=== PATIENT | female | born 1945 | race Caucasian/White ===

== ENCOUNTER 2017-06-30 19:51 | Emergency (ER) | payer MEDICARE, OTHER ==
[2017-06-30 20:53] LABS: ABSOLUTE BASOPHILS # (AUTO) 0.1 10^3/uL (0.0-0.2); ABSOLUTE LYMPHOCYTES (AUTO) 0.6 10^3/uL (0.5-4.7); ABSOLUTE MONOCYTES (AUTO) 0.7 10^3/uL (0.1-1.4); BASOPHILS % (AUTO) 0.7 % (0-2); EOSINOPHILS % (AUTO) 0.2 % (0-6); HEMATOCRIT 38.7 % (36.0-47.0); HEMOGLOBIN 13.2 g/dL (12.0-15.5); HGB HCT DIFFERENCE 0.9; LYMPHOCYTES % (AUTO) 6.4 % (13-45); MEAN CORPUSCULAR HEMOGLOBIN 33.4 pg (27.0-33.4); MEAN CORPUSCULAR HGB CONC 34.2 g/dL (32.0-36.0); MEAN CORPUSCULAR VOLUME 98 fl (80-97); MONOCYTES % (AUTO) 7.4 % (3-13); RED BLOOD COUNT 3.96 10^6/uL (3.72-5.28); RED CELL DISTRIBUTION WIDTH 13.5 % (11.5-14.0); SEGMENTED NEUTROPHILS % (AUTO) 85.3 % (42-78); WHITE BLOOD COUNT 9.3 10^3/uL (4.0-10.5)
--- NOTE | 2017-06-30 20:53 | ER Document Report ---
ED General - General Chief Complaint: Altered Mental Status Stated Complaint: ALTERED MENTAL STATUS Time Seen by Provider: 06/30/17 20:30 TRAVEL OUTSIDE OF THE [place] IN LAST 30 DAYS: No - HPI Notes: 71-year-old female history of cardiac stents, "mild" TIA, hypertension presents with vomiting and diarrhea that started yesterday. Apparently the vomiting and diarrhea has been pretty persistent. She had a history of sepsis and reports to me that he did not want her to get this way again like she was back than a few years ago. She notably has had some increased confusion. He does report she had a fall when walking the dog striking her head approximately a week ago. He notes he has been slightly more off in a little more unsteady on her feet than normal. They have noted no focal weakness or facial asymmetry. She denies urinary symptoms. EMS reported the patient has had some cough. Denies any new medications. He was unsure the day when he asked and seemed confused though right now seems slightly better but not back to normal. - Related Data Allergies/Adverse Reactions: divalproex sodium [From Depakote] Allergy (Verified 09/19/15 22:31) Penicillins Allergy (Verified 09/19/15 22:31) propoxyphene [Propoxyphene] Allergy (Verified 09/19/15 22:31) Past Medical History - Social History Smoking Status: Former Smoker - Very distant Chew tobacco use (# tins/day): No Frequency of alcohol use: None Drug Abuse: None Family History: Reviewed & Not Pertinent Patient has suicidal ideation: No Patient has homicidal ideation: No - Past Medical History Cardiac Medical History: Reports: Hx Hypertension Renal/ Medical History: Denies: Hx Peritoneal Dialysis Past Surgical History: Reports: Hx Cardiac Catheterization - Stents x 2, Hx Orthopedic Surgery - R knee - Immunizations Hx Diphtheria, Pertussis, Tetanus Vaccination: Yes Review of Systems - Review of Systems -: Yes All other systems reviewed and negative Physical Exam - Vital signs Vitals: Pulse Resp BP Pulse Ox 71 16 175/92 H 100 06/30/17 19:58 06/30/17 19:58 06/30/17 19:58 06/30/17 19:58 Interpretation: Hypertensive - Notes Notes: GENERAL: VS as per nursing doc. Well-appearing, well-nourished and in no acute distress. HEAD: Contusion over her forehead, normocephalic. EYES: Pupils equal round and reactive to light, extraocular movements intact, sclera anicteric, no conjunctival injection or discharge. ENT: Nares patent, oropharynx clear without exudates, somewhat dry mucous membranes. NECK: Normal range of motion, supple without lymphadenopathy. LUNGS: Breath sounds clear to auscultation bilaterally and equal. No wheezes rales or rhonchi. HEART: Slightly tachycardic but regular rhythm without murmurs. ABDOMEN: Soft, non-tender, hyperactive bowel sounds. No guarding, no rebound. No masses appreciated. No [place] sign. Linear incision that is old in the right upper quadrant suggestive of prior cholecystectomy BACK: No CVA tenderness. EXTREMITIES: Normal range of motion, no calf tenderness, no edema. NEUROLOGICAL: Cranial nerves grossly intact. Normal speech. Normal sensory and motor exams. No gross cerebellar abnormalities. PSYCH: Normal mood, normal affect. Oriented 2, tells me the wrong day when asked what year it is. Odd affect, seems to have somewhat poor recall otherwise. SKIN: Warm, dry, normal turgor, no lesions noted. Course - Re-evaluation Re-evalutation: 06/30/17 23:29 I reviewed findings of the CT scans x-ray and all labs with the patient and . There are no significant abnormalities noted on these diagnostic studies. She has been observed over 3-1/2 hours now in the emergency department alone and she has had no vomiting or diarrhea and has taken p.o. fluids. I discussed discharge with the patient and she is excited to go home. reports she is at her normal mentation. They are comfortable with discharge as well understand warning signs to watch for. Her abdomen on recheck is soft nontender. I do not see any suggestion of any significant intra -abdominal process. - Vital Signs Vital signs: Temp Pulse Resp BP Pulse Ox 98.6 F 71 17 177/87 H 95 06/30/17 20:00 06/30/17 19:58 06/30/17 20:02 06/30/17 20:01 06/30/17 20:02 - Laboratory Result Diagrams: 06/30/17 20:07 06/30/17 20:07 Laboratory results interpreted by me: 06/30/17 06/30/17 06/30/17 20:07 20:07 21:00 MCV 98 H Seg Neutrophils % 85.3 H Lymphocytes % 6.4 L Glucose 150 H AST 57 H ALT 72 H Ammonia Urine Protein 100 H Urine Ketones 20 H Urine Blood MODERATE H 06/30/17 21:45 MCV Seg Neutrophils % Lymphocytes % Glucose AST ALT Ammonia < 8.7 L Urine Protein Urine Ketones Urine Blood - Diagnostic Test Radiology reviewed: Reports reviewed - CT scan shows microvascular changes but nothing acute, chest x-ray is nonacute. - EKG Interpretation by Me EKG shows normal: Sinus rhythm - Heart rate 93. More pronounced ST depression in the anterior and lateral leads compared to prior EKG September 19, 2015 but overall appears consistent with that EKG. Discharge - Discharge Clinical Impression: Vomiting and diarrhea, Weakness Condition: Good Disposition: HOME, SELF-CARE Instructions: Diarrhea, Nonspecific ([facility]), Nausea or Vomiting, Nonspecific ([facility] ) Prescriptions: Ondansetron [Zofran Odt 4 mg Tablet] 1 tab PO Q4H PRN #15 tab.rapdis PRN Reason: For Nausea/Vomiting Referrals: DONOVAN VELEZ MD [Primary Care Provider] - Follow up tomorrow
[2017-06-30 20:55] LABS: VENOUS BLOOD BASE EXCESS 2.9 mmol/L; VENOUS BLOOD HCO3 28.8 mmol/L (20-32); VENOUS BLOOD PCO2 49.2 mmHg (35-63); VENOUS BLOOD PH 7.39 (7.30-7.42)
[2017-06-30 20:59] LABS: ALANINE AMINOTRANSFERASE 72 U/L (9-52); ALBUMIN 4.2 g/dL (3.5-5.0); ALKALINE PHOSPHATASE 102 U/L (38-126); ANION GAP 14 (5-19); ASPARTATE AMINO TRANSFERASE 57 U/L (14-36); BILIRUBIN,DIRECT 0.3 mg/dL (0.0-0.4); BILIRUBIN,TOTAL 0.4 mg/dL (0.2-1.3); BLOOD UREA NITROGEN 15 mg/dL (7-20); CALCIUM 9.1 mg/dL (8.4-10.2); CARBON DIOXIDE 26 mmol/L (22-30); CHLORIDE 99 mmol/L (98-107); CREATININE RESULT 0.59 mg/dL (0.52-1.25); GLUCOSE 150 mg/dL (75-110); SODIUM 138.6 mmol/L (137-145); TOTAL PROTEIN 7.1 g/dL (6.3-8.2)
[2017-06-30 21:06] LABS: PROTHROMBIN TIME 13.5 SEC (11.4-15.4)
[2017-06-30 21:26] LABS: APPEARANCE,URINE SLIGHTLY-CLOUDY; BILIRUBIN,URINE NEGATIVE (NEGATIVE); GLUCOSE, URINE NEGATIVE (NEGATIVE); KETONES,URINE 20 mg/dL (NEGATIVE); LEUKOCYTE ESTERASE,URINE NEGATIVE (NEGATIVE); NITRITE,URINE NEGATIVE (NEGATIVE); PROTEIN,URINE 100 mg/dL (NEGATIVE); URINE SPECIFIC GRAVITY 1.027; UROBILINOGEN,URINE NEGATIVE mg/dL (<2.0)
--- NOTE | 2017-06-30 21:50 | RADIOLOGY REPORT (SQ) ---
EXAM DESCRIPTION: CT HEAD WITHOUT COMPLETED DATE/TIME: 06/30/2017 9:12 pm REASON FOR STUDY: Trauma with pain COMPARISON: 02/23/2011. TECHNIQUE: Axial images acquired through the brain without intravenous contrast. Images reviewed wi th bone, brain and subdural windows. Images stored on PACS. All CT scanners at this facility use dose modulation, iterative reconstruction, and/or weight based d osing when appropriate to reduce radiation dose to as low as reasonably achievable (ALARA). [facility]: Dose Right [facility]: CareDose [facility]: Dose Right [facility]: Teradose 4D [facility]: Smart [employer] RADIATION DOSE: CT Rad equipment meets quality standard of care and radiation dose reduction techniq ues were employed. CTDIvol: 64.6 mGy. DLP: 1034 mGy-cm.mGy. LIMITATIONS: None. FINDINGS: VENTRICLES: Prominent. CEREBRUM: No masses. No hemorrhage. No midline shift. Areas of low density in the white matter mos t likely due to chronic micro-vascular ischemic change. No evidence for acute infarction. CEREBELLUM: No masses. No hemorrhage. No alteration of density. No evidence for acute infarction. EXTRAAXIAL SPACES: Age-related involutional change. No fluid collections. No masses. ORBITS AND GLOBE: No intra- or extraconal masses. Normal contour of globe without masses. CALVARIUM: No fracture. PARANASAL SINUSES: No fluid or mucosal thickening. SOFT TISSUES: No mass or hematoma. OTHER: No other significant finding. IMPRESSION: CHRONIC CHANGES OF ATROPHY AND MICROVASCULAR ISCHEMIA. NO ACUTE PROCESS. EVIDENCE OF ACUTE STROKE: NO. TECHNICAL DOCUMENTATION: JOB ID: [id number] Quality ID # [id number]: Final reports with documentation of one or more dose reduction techniques (e.g., Au tomated exposure control, adjustment of the mA and/or kV according to patient size, use of iterative reconstruction technique) 2010 [employer]- All Rights Reserved
--- NOTE | 2017-06-30 22:18 | RADIOLOGY REPORT (SQ) ---
EXAM DESCRIPTION: CHEST SINGLE VIEW COMPLETED DATE/TIME: 06/30/2017 9:11 pm REASON FOR STUDY: AMS COMPARISON: 03/03/2011. EXAM PARAMETERS: NUMBER OF VIEWS: One view. TECHNIQUE: Single frontal radiographic view of the chest acquired. RADIATION DOSE: NA LIMITATIONS: None. FINDINGS: LUNGS AND PLEURA: No opacities, masses or pneumothorax. No pleural effusion. MEDIASTINUM AND HILAR STRUCTURES: No masses. Contour normal. HEART AND VASCULAR STRUCTURES: Heart normal in size. Normal vasculature. BONES: No acute findings. Old rib fracture. HARDWARE: None in the chest. OTHER: No other significant finding. IMPRESSION: NO ACUTE RADIOGRAPHIC FINDING IN THE CHEST. TECHNICAL DOCUMENTATION: JOB ID: [id number] [employer]- All Rights Reserved
--- NOTE | 2017-06-30 22:23 | EKG REPORT ---
SEVERITY:- ABNORMAL ECG - SINUS RHYTHM PROBABLE LVH WITH SECONDARY REPOL ABNRM : Confirmed by: Brunilda Corley 30-Jun-2017 22:22:26
[2017-07-01] VITALS: BP 176/79
== END 2017-07-01 | disposition home or self-care (01) ==
LOC: ER 19:51
DX: R11.10 Vomiting, unspecified (principal); R19.7 Diarrhea, unspecified; R53.1 Weakness; S00.83XA Contusion of other part of head, initial encounter; W19.XXXA Unspecified fall, initial encounter; R26.81 Unsteadiness on feet; R41.0 Disorientation, unspecified; Z86.73 Personal history of transient ischemic attack (TIA), and cerebral infarction without residual deficits; Z95.5 Presence of coronary angioplasty implant and graft; Z88.0 Allergy status to penicillin; Z88.8 Allergy status to other drugs, medicaments and biological substances; Z87.891 Personal history of nicotine dependence; I10 Essential (primary) hypertension
CPT/HCPCS: 36415; 51701; 70450; 71010; 80053; 81001; 82140; 82803; 83605; 85025; 85610; 87040; 87086; 87088; 87186; 93005; 93010; 99285

== ENCOUNTER 2018-01-13 09:09 | Inpatient (IN) | payer MEDICARE ==
--- NOTE | 2018-01-13 09:37 | ER Document Report ---
ED General - General Stated Complaint: ALTERED MENTAL STATUS Time Seen by Provider: 01/13/18 09:22 Mode of Arrival: Medic Information source: Relative - SPOUSE, Emergency Med Personnel Cannot obtain history due to: Altered mental status TRAVEL OUTSIDE OF THE [place] IN LAST 30 DAYS: No - HPI Onset: This morning - AWAKENED SYMPTOMATIC THIS A.M., WAS APPARENTLY WELL @ [facility] LAST P.M. Onset/Duration: Constant Associated symptoms: Weakness, Other - URINARY INCONT. Exacerbated by: Denies Relieved by: Denies Similar symptoms previously: No Recently seen / treated by doctor: Yes - UROLOGY, LAST WEEK Notes: Additional history obtained from . Patient was at her baseline mental and mobility status last night when she went to bed. This morning discovered that she was quite confused and extremely weak, unable to get herself out of bed. Much assistance necessary to transfer from bed to EMS stretcher. All day today, she has been unable to converse, says only a few garbled words at a time, and this is new. 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 She began to have frequent falls in the early weeks of this year, primary care provider referred her to physical therapy and this was improved, but lately she is been falling frequently once again. She was referred to Dr. Guardado for a neurologic workup. She had a 24 hour EEG study which was inconclusive. She was then scheduled for a 48 hour study, which was done, but results are not available at this time. - Related Data Allergies/Adverse Reactions: divalproex sodium [From Depakote] Allergy (Verified 01/13/18 10:07) Penicillins Allergy (Verified 01/13/18 10:07) propoxyphene [Propoxyphene] Allergy (Verified 01/13/18 10:07) Past Medical History - General Information source: Patient, Relative - Social History Smoking Status: Unknown if Ever Smoked Cigarette use (# per day): No Chew tobacco use (# tins/day): No Frequency of alcohol use: None Drug Abuse: None Lives with: Spouse/Significant other Family History: Reviewed & Not Pertinent Patient has suicidal ideation: No Patient has homicidal ideation: No - Past Medical History Cardiac Medical History: Reports: Hx Coronary Artery Disease, Hx Hypertension Pulmonary Medical History: Reports: None EENT Medical History: Reports: None Neurological Medical History: Reports: Hx Cerebrovascular Accident Renal/ Medical History: Denies: Hx Peritoneal Dialysis Malignancy Medical History: Reports: None GI Medical History: Reports: None Musculoskeltal Medical History: Reports None Psychiatric Medical History: Reports: None Past Surgical History: Reports: Hx Cardiac Catheterization - Stents x 2, Hx Orthopedic Surgery - R knee - Immunizations Hx Diphtheria, Pertussis, Tetanus Vaccination: Yes Review of Systems - Review of Systems -: Yes ROS unobtainable due to patient's medical condition - LIMITED R.O.S. AVAILABLE FROM SPOUSE Constitutional: No symptoms reported EENT: No symptoms reported Cardiovascular: No symptoms reported Respiratory: No symptoms reported Gastrointestinal: No symptoms reported Genitourinary: See HPI Female Genitourinary: Post menopausal Musculoskeletal: No symptoms reported Skin: No symptoms reported Neurological/Psychological: See HPI Physical Exam - Vital signs Vitals: Resp 23 H 01/13/18 09:20 Interpretation: Hypertensive, Tachypneic. No: Tachycardic, Hypoxic - 92% R.A. - General General appearance: Lethargic In distress: None - HEENT Head: Normocephalic Eyes: Normal Conjunctiva: Normal Pupils: PERRL Ears: Normal Nasal: Normal Mouth/Lips: Normal Mucous membranes: Normal Pharynx: Normal Neck: Normal, Supple - Respiratory Respiratory status: No respiratory distress Breath sounds: Normal - Cardiovascular Rhythm: Regular Heart sounds: Normal auscultation Murmur: No Pulses: Normal: Dorsalis pedis - Abdominal Inspection: Normal Distension: No distension - Back Back: Normal - Extremities General upper extremity: Normal inspection General lower extremity: Normal inspection - Neurological Neuro grossly intact: No - POORLY COOPERATIVE Cognition: Confused, Inattentive [place] Coma Scale Eye Opening: Spontaneous Elvis Coma Scale Verbal: Confused Elvis Coma Scale Motor: Obeys Commands [place] Coma Scale Total: 14 Speech: Other - WILL NOT OR CANNOT PHONATE Cranial nerves: No: Facial palsy, Tongue deviation Cerebellar coordination: No: Finger-nose rhombey - Psychological Associated symptoms: Confused - Skin Skin Temperature: Warm Skin Moisture: Dry Skin Color: Normal Skin Turgor: Elastic Course - Vital Signs Vital signs: Temp Pulse Resp BP Pulse Ox 14 178/92 H 91 L 01/13/18 13:01 01/13/18 13:01 01/13/18 13:01 - Laboratory Result Diagrams: 01/13/18 10:00 01/13/18 10:00 Laboratory results interpreted by me: 01/13/18 01/13/18 01/13/18 09:52 10:00 10:00 WBC 11.9 H Seg Neuts % (Manual) 83 H Band Neutrophils % 2 L Lymphocytes % (Manual) 6 L Abs Neuts (Manual) 10.1 H Glucose 178 H Alkaline Phosphatase 127 H Total Protein 8.3 H Urine Protein 100 H Urine Ketones 20 H Urine Blood SMALL H - Diagnostic Test Radiology reviewed: Image reviewed, Reports reviewed - EKG Interpretation by Me EKG shows normal: Sinus rhythm, [place]. abnormal: Intervals - BORDERLINE LONG QT , ST-T Waves - DIFFUSE ST-T ABNLS, ? ISCHEMIC Rate: Normal Rhythm: NSR Discharge - Discharge Clinical Impression: Weakness generalized Altered mental status, unspecified Qualifiers: Altered mental status type: unspecified Qualified Code(s): R41.82 - Altered mental status, unspecified Condition: Good Admitting Provider: Hospitalist Unit Admitted: Medical Floor Referrals: DONOVAN VELEZ MD [Primary Care Provider] - Follow up as needed
--- NOTE | 2018-01-13 09:41 | RADIOLOGY REPORT (SQ) ---
EXAM DESCRIPTION: CT HEAD WITHOUT COMPLETED DATE/TIME: 01/13/2018 9:32 am REASON FOR STUDY: altered mental status COMPARISON: 06/30/2017. TECHNIQUE: Axial images acquired through the brain without intravenous contrast. Images reviewed wi th bone, brain and subdural windows. Additional sagittal and coronal reconstructions were generated. Images stored on PACS. All CT scanners at this facility use dose modulation, iterative reconstruction, and/or weight based d osing when appropriate to reduce radiation dose to as low as reasonably achievable (ALARA). [facility]: Dose Right [facility]: CareDose [facility]: Dose Right [facility]: Teradose 4D [facility]: Video[employer]st RADIATION DOSE: CT Rad equipment meets quality standard of care and radiation dose reduction techniq ues were employed. CTDIvol: 53.2 mGy. DLP: 937 mGy-cm.mGy. LIMITATIONS: None. FINDINGS: VENTRICLES: Prominent. CEREBRUM: No masses. No hemorrhage. No midline shift. Areas of low density in the white matter mos t likely due to chronic micro-vascular ischemic change. No evidence for acute infarction. CEREBELLUM: No masses. No hemorrhage. No alteration of density. No evidence for acute infarction. EXTRAAXIAL SPACES: Age-related involutional change. No fluid collections. No masses. ORBITS AND GLOBE: No intra- or extraconal masses. Normal contour of globe without masses. CALVARIUM: No fracture. PARANASAL SINUSES: No fluid or mucosal thickening. SOFT TISSUES: No mass or hematoma. OTHER: No other significant finding. IMPRESSION: CHRONIC CHANGES OF ATROPHY AND MICROVASCULAR ISCHEMIA. NO ACUTE PROCESS. EVIDENCE OF ACUTE STROKE: NO. TECHNICAL DOCUMENTATION: JOB ID: [id number] Quality ID # [id number]: Final reports with documentation of one or more dose reduction techniques (e.g., Au tomated exposure control, adjustment of the mA and/or kV according to patient size, use of iterative reconstruction technique) 2010 [employer]- All Rights Reserved Reading location - IP/workstation name: [email or web address]
--- NOTE | 2018-01-13 09:42 | RADIOLOGY REPORT (SQ) ---
EXAM DESCRIPTION: CHEST SINGLE VIEW COMPLETED DATE/TIME: 01/13/2018 9:32 am REASON FOR STUDY: altered mental status COMPARISON: 06/30/2017. EXAM PARAMETERS: NUMBER OF VIEWS: One view. TECHNIQUE: Single frontal radiographic view of the chest acquired. RADIATION DOSE: NA LIMITATIONS: None. FINDINGS: LUNGS AND PLEURA: No opacities, masses or pneumothorax. No pleural effusion. MEDIASTINUM AND HILAR STRUCTURES: No masses. Contour normal. HEART AND VASCULAR STRUCTURES: Heart normal in size. Normal vasculature. BONES: No acute findings. Old rib fracture. HARDWARE: None in the chest. OTHER: No other significant finding. IMPRESSION: NO ACUTE RADIOGRAPHIC FINDING IN THE CHEST. TECHNICAL DOCUMENTATION: JOB ID: [id number] [employer]- All Rights Reserved Reading location - IP/workstation name: [email or web address]
[2018-01-13 10:23] LABS: APPEARANCE,URINE CLEAR; BILIRUBIN,URINE NEGATIVE (NEGATIVE); COLOR,URINE YELLOW; GLUCOSE, URINE NEGATIVE (NEGATIVE); KETONES,URINE 20 mg/dL (NEGATIVE); LEUKOCYTE ESTERASE,URINE NEGATIVE (NEGATIVE); NITRITE,URINE NEGATIVE (NEGATIVE); PROTEIN,URINE 100 mg/dL (NEGATIVE); URINE SPECIFIC GRAVITY 1.021; UROBILINOGEN,URINE NEGATIVE mg/dL (<2.0)
[2018-01-13 11:37] LABS: HEMATOCRIT 40.8 % (36.0-47.0); HEMOGLOBIN 13.9 g/dL (12.0-15.5); MEAN CORPUSCULAR HEMOGLOBIN 32.7 pg (27.0-33.4); MEAN CORPUSCULAR HGB CONC 34.1 g/dL (32.0-36.0); MEAN CORPUSCULAR VOLUME 96 fl (80-97); PLATELET COUNT 266 10^3/uL (150-450); RED BLOOD COUNT 4.27 10^6/uL (3.72-5.28); RED CELL DISTRIBUTION WIDTH 13.3 % (11.5-14.0); WHITE BLOOD COUNT 11.9 10^3/uL (4.0-10.5)
[2018-01-13 11:40] LABS: ALANINE AMINOTRANSFERASE 33 U/L (9-52); ALBUMIN 4.9 g/dL (3.5-5.0); ALKALINE PHOSPHATASE 127 U/L (38-126); ANION GAP 13 (5-19); ASPARTATE AMINO TRANSFERASE 30 U/L (14-36); BILIRUBIN,DIRECT 0.4 mg/dL (0.0-0.4); BILIRUBIN,TOTAL 0.6 mg/dL (0.2-1.3); BLOOD UREA NITROGEN 16 mg/dL (7-20); CALCIUM 9.7 mg/dL (8.4-10.2); CARBON DIOXIDE 27 mmol/L (22-30); CHLORIDE 101 mmol/L (98-107); GLUCOSE 178 mg/dL (75-110); POTASSIUM 4.3 mmol/L (3.6-5.0); SODIUM 141.4 mmol/L (137-145); TOTAL PROTEIN 8.3 g/dL (6.3-8.2)
[2018-01-13] MEDS ORDERED: NORMAL SALINE 1000 ML 500 ML IV PRN (12:12)
[2018-01-13 12:14] LABS: ABSOLUTE LYMPHOCYTES# (MANUAL) 0.8 10^3/uL (0.5-4.7); ABSOLUTE NEUTROPHILS# (MANUAL) 10.1 10^3/uL (1.7-8.2); BAND NEUTROPHILS % (MANUAL) 2 % (3-5); BASOPHILS % (MANUAL) 0 % (0-2); EOSINOPHILS % (MANUAL) 0 % (0-6); LYMPHOCYTES % (MANUAL) 6 % (13-45); MONOCYTES % (MANUAL) 8 % (3-13); PLATELET COMMENT ADEQUATE; RBC MORPHOLOGY COMMENT NORMO-CYTIC/CHROMIC; SEGMENTED NEUTROPHILS % (MAN) 83 % (42-78); TOTAL CELLS COUNTED 100; TOXIC GRANULATION SLIGHT; TOXIC VACUOLATION PRESENT
[2018-01-13] MEDS ORDERED: IPRATROPIUM/ALBUTEROL 0.5-2.5 MG/3 ML AMPUL NEB PRN (13:47)
[2018-01-13] MEDS ORDERED: ACETAMINOPHEN 325 MG TABLET PO PRN (13:47)
[2018-01-13] MEDS ORDERED: OXYCODONE-ACETAMINOPHEN 5-325 MG TABLET PO PRN (13:47)
[2018-01-13] MEDS ORDERED: ONDANSETRON HCL INJ/PF 4 MG/2 ML SDV IV PRN (13:47)
[2018-01-13] MEDS: RINGERS SOLUTION,LACTATED 1,000 ML IV PRN (14:58)
[2018-01-13] MEDS ORDERED: HYDRALAZINE HCL INJ/PF 20 MG/1 ML SDV IV PRN (17:15)
--- NOTE | 2018-01-13 17:25 | PDOC H&P ---
History of Present Illness Admission Date/PCP: 01/13/18 15:13 DONOVAN VELEZ MD Patient complains of: Change in mental status History of Present Illness: CARO COKER is a 72 year old female This patient was brought to the emergency room with altered mental status. Patient is confused and barely verbal and I am unable to obtain any information from her. Review of the ED records indicate that patient was at her baseline mental status when she went to bed last night. found her confused and extremely weak this morning on it unable to get out of bed. Being unable to converse and at best able to order a few garbled words. 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 She has been having frequent falls more recently and received physical therapy which seemed to improve this but started falling again. He was referred to a neurologist for workup which included a 24-hour EEG study which was inconclusive and a [address] scan done today shows chronic changes of atrophy and microvascular ischemia but no acute process. She does have a slight leukocytosis with a left shift and urinalysis is negative as well as chest x-ray. She has been tachycardic and blood pressure has been elevated with a systolic of about 180-190, and she is being tachypneic but afebrile. Past Medical History Past Medical History: Obtained from records Cardiac Medical History: Reports: Coronary Artery Disease, Hypertension Pulmonary Medical History: Reports: None EENT Medical History: Reports: None Malignancy Medical History: Reports: None GI Medical History: Reports: None Musculoskeltal Medical History: Reports: None Psychiatric Medical History: Reports: None Past Surgical History Past Surgical History: Reports: Cardiac Catheterization - Stents x 2, Orthopedic Surgery - R knee Social History Information Source: [facility] Records Lives with: Spouse/Significant other Smoking Status: Unknown if Ever Smoked - Advance Directive Resuscitation Status: Full Code Family History Family History: Reviewed & Not Pertinent, Other - Not available Parental Family History Reviewed: No - Unable to provide history Children Family History Reviewed: No Sibling(s) Family History Reviewed.: No Medication/Allergy Home Medications: Aspirin [Aspirin 325 mg Tablet] 325 mg PO DAILY 01/13/18 Aspirin/Acetaminophen/Caffeine [Excedrin Migraine Caplet] 2 tab PO DAILYP PRN Atorvastatin Calcium [Lipitor 80 mg Tablet] 80 mg PO QHS 01/13/18 Docusate Sodium [Colace 100 mg Capsule] 100 mg PO BID 01/13/18 Imipramine HCl [Tofranil 25 mg Tablet] 25 mg PO QPM 01/13/18 Imipramine HCl [Tofranil 25 mg Tablet] 50 mg PO QAM 01/13/18 Lansoprazole [Prevacid] 30 mg PO DAILY 01/13/18 Metformin HCl [Glucophage XR 500 mg Tablet] 500 mg PO DAILY 01/13/18 Metoprolol Succinate [Toprol XL 100 mg Tablet] 100 mg PO DAILY 01/13/18 Nitrofurantoin Monohyd/M-Cryst [Macrobid 100 mg Capsule] 1 cap PO BID 01/13/18 Propranolol HCl 80 mg PO TID 01/13/18 Solifenacin Succinate [Vesicare] 5 mg PO DAILY 01/13/18 Valsartan [Diovan] 320 mg PO DAILY 01/13/18 Allergies/Adverse Reactions: divalproex sodium [From Depakote] Allergy (Verified 01/13/18 10:07) Penicillins Allergy (Verified 01/13/18 10:07) propoxyphene [Propoxyphene] Allergy (Verified 01/13/18 10:07) Review of Systems ROS unobtainable: Due to mental status Physical Exam Vital Signs: Temp Pulse Resp BP Pulse Ox 19 179/79 H 94 01/13/18 16:31 01/13/18 16:31 01/13/18 16:31 General appearance: PRESENT: no acute distress, thin, other Head exam: PRESENT: atraumatic Mouth exam: PRESENT: dry mucosa, other - mouth clamped tight Respiratory exam: PRESENT: clear to auscultation imelda. ABSENT: rales, rhonchi, wheezes Cardiovascular exam: PRESENT: RRR. ABSENT: diastolic murmur, rubs, systolic murmur GI/Abdominal exam: PRESENT: normal bowel sounds, soft. ABSENT: distended, guarding, mass, organolmegaly, rebound, tenderness Rectal exam: PRESENT: deferred Neurological exam: PRESENT: alert, awake, other - not verbally responsive. ABSENT: oriented to person, oriented to place, oriented to time, oriented to situation Skin exam: PRESENT: dry Results Laboratory Results: 01/13/18 10:00 01/13/18 10:00 MCV 96 fl (80-97) 01/13/18 10:00 MCH 32.7 pg (27.0-33.4) 01/13/18 10:00 MCHC 34.1 g/dL (32.0-36.0) 01/13/18 10:00 RDW 13.3 % (11.5-14.0) 01/13/18 10:00 Seg Neutrophils % Not Reportable 01/13/18 10:00 Lymphocytes % Not Reportable 01/13/18 10:00 Monocytes % Not Reportable 01/13/18 10:00 Eosinophils % Not Reportable 01/13/18 10:00 Basophils % Not Reportable 01/13/18 10:00 Absolute Neutrophils Not Reportable 01/13/18 10:00 Absolute Lymphocytes Not Reportable 01/13/18 10:00 Absolute Monocytes Not Reportable 01/13/18 10:00 Absolute Eosinophils Not Reportable 01/13/18 10:00 Absolute Basophils Not Reportable 01/13/18 10:00 Chloride 101 mmol/L (98-107) 01/13/18 10:00 Carbon Dioxide 27 mmol/L (22-30) 01/13/18 10:00 Anion Gap 13 (5-19) 01/13/18 10:00 Est GFR ( Amer) > 60 (>60) 01/13/18 10:00 Est GFR (Non-Af Amer) > 60 (>60) 01/13/18 10:00 Glucose 178 mg/dL (75-110) H 01/13/18 10:00 Calcium 9.7 mg/dL (8.4-10.2) 01/13/18 10:00 Total Bilirubin 0.6 mg/dL (0.2-1.3) 01/13/18 10:00 AST 30 U/L (14-36) 01/13/18 10:00 ALT 33 U/L (9-52) 01/13/18 10:00 Alkaline Phosphatase 127 U/L (38-126) H 01/13/18 10:00 Total Protein 8.3 g/dL (6.3-8.2) H 01/13/18 10:00 Albumin 4.9 g/dL (3.5-5.0) 01/13/18 10:00 Urine Color YELLOW 01/13/18 09:52 Urine Appearance CLEAR 01/13/18 09:52 Urine pH 5.0 (5.0-9.0) 01/13/18 09:52 Ur Specific Annabella 1.021 01/13/18 09:52 Urine Protein 100 mg/dL (NEGATIVE) H 01/13/18 09:52 Urine Glucose (UA) NEGATIVE mg/dL (NEGATIVE) 01/13/18 09:52 Urine Ketones 20 mg/dL (NEGATIVE) H 01/13/18 09:52 Urine Blood SMALL (NEGATIVE) H 01/13/18 09:52 Urine Nitrite NEGATIVE (NEGATIVE) 01/13/18 09:52 Ur Leukocyte Esterase NEGATIVE (NEGATIVE) 01/13/18 09:52 Urine WBC (Auto) 1 /HPF 01/13/18 09:52 Urine RBC (Auto) 2 /HPF 01/13/18 09:52 01/13/18 01/13/18 10:00 13:10 CK-MB (CK-2) 0.26 Troponin I < 0.012 Impressions: Head CT 01/13/18 00:00 IMPRESSION: CHRONIC CHANGES OF ATROPHY AND MICROVASCULAR ISCHEMIA. NO ACUTE PROCESS. EVIDENCE OF ACUTE STROKE: NO. Chest X-Ray 01/13/18 09:20 IMPRESSION: NO ACUTE RADIOGRAPHIC FINDING IN THE CHEST. Assessment & Plan - Diagnosis (1) SIRS (systemic inflammatory response syndrome) Is this a current diagnosis for this admission?: Yes Plan: I suspect patient will be septic however no clear source of infection at this time. I will place on empiric antibiotics. Continue to monitor follow-up on cultures (2) Altered mental status, unspecified Qualifiers: Altered mental status type: unspecified Qualified Code(s): R41.82 - Altered mental status, unspecified Is this a current diagnosis for this admission?: Yes Plan: Likely metabolic encephalopathy secondary to acute infection (3) Hypertensive urgency Is this a current diagnosis for this admission?: Yes Plan: She will be placed on her home medications as well as as needed hydralazine to control her blood pressure - Time Time Spent: 30 to 50 Minutes Medications reviewed and adjusted accordingly: Yes Anticipated discharge: Home Within: within 72 hours - Inpatient Certification Based on my medical assessment, after consideration of the patient's comorbidities, presenting symptoms, or acuity I expect that the services needed warrant INPATIENT care.: Yes Medical Necessity: Need Close Monitoring Due to Risk of Patient Decompensation, Need for IV Antibiotics
[2018-01-13] MEDS ORDERED: PROPRANOLOL HCL 80 MG PO SCH (18:00)
[2018-01-13] MEDS ORDERED: LEVOFLOXACIN 500 MG/D5W RTU 500 MG/100 ML RTUPB IV ONE (19:00)
[2018-01-13] MEDS: IMIPRAMINE HCL 25 MG TABLET PO SCH (19:01)
[2018-01-13] MEDS: TOLTERODINE TARTRATE 1 MG TABLET PO SCH (22:46)
[2018-01-13] MEDS: ATORVASTATIN CALCIUM 80 MG TABLET PO SCH (22:46)
[2018-01-13] MEDS ORDERED: LEVOFLOXACIN IV ONE (23:59)
[2018-01-13] MEDS ORDERED: D5W RTU IV ONE (23:59)
--- NOTE | 2018-01-14 00:20 | EKG REPORT ---
SEVERITY:- ABNORMAL ECG - SINUS RHYTHM REPOL ABNRM SUGGESTS ISCHEMIA, DIFFUSE LEADS BORDERLINE PROLONGED QT INTERVAL : Confirmed by: Ce Abdi MD 14-Jan-2018 00:19:19
[2018-01-14] MEDS: LANSOPRAZOLE 30 MG TAB.RAP.DR PO SCH (05:01)
[2018-01-14 05:18] LABS: HEMATOCRIT 38.4 % (36.0-47.0); HEMOGLOBIN 13.1 g/dL (12.0-15.5); MEAN CORPUSCULAR HEMOGLOBIN 32.7 pg (27.0-33.4); MEAN CORPUSCULAR HGB CONC 34.3 g/dL (32.0-36.0); MEAN CORPUSCULAR VOLUME 95 fl (80-97); PLATELET COUNT 211 10^3/uL (150-450); RED BLOOD COUNT 4.02 10^6/uL (3.72-5.28); RED CELL DISTRIBUTION WIDTH 13.2 % (11.5-14.0); WHITE BLOOD COUNT 13.1 10^3/uL (4.0-10.5)
[2018-01-14 05:35] LABS: ANION GAP 18 (5-19); BLOOD UREA NITROGEN 15 mg/dL (7-20); CALCIUM 8.7 mg/dL (8.4-10.2); CARBON DIOXIDE 21 mmol/L (22-30); CHLORIDE 101 mmol/L (98-107); GLUCOSE 156 mg/dL (75-110); POTASSIUM 3.8 mmol/L (3.6-5.0); SODIUM 139.8 mmol/L (137-145)
[2018-01-14] MEDS: IMIPRAMINE HCL 25 MG TABLET PO SCH ×2 (09:28→16:28)
[2018-01-14] MEDS: METOPROLOL SUCCINATE 50 MG TAB.SR.24H PO SCH (09:36)
[2018-01-14] MEDS: TOLTERODINE TARTRATE 1 MG TABLET PO SCH ×2 (09:36→21:01)
[2018-01-14] MEDS: ASPIRIN 325 MG TABLET PO SCH (09:36)
[2018-01-14] MEDS: PROPRANOLOL HCL 40 MG TABLET PO SCH ×3 (09:36→16:28)
[2018-01-14] MEDS: LEVOFLOXACIN 500 MG/D5W RTU 500 MG/100 ML RTUPB IV SCH (09:36)
[2018-01-14] MEDS: VALSARTAN 160 MG TABLET PO SCH (09:36)
[2018-01-14] MEDS ORDERED: (PENDING PHARMACY ID) (Valsartan [Diovan] 320 MG) PO SCH (10:00)
[2018-01-14] MEDS ORDERED: (PENDING PHARMACY ID) (Solifenacin Succinate [Vesicare] 5 MG) PO SCH (10:00)
[2018-01-14] MEDS ORDERED: (PENDING PHARMACY ID) (Lansoprazole [Prevacid] 30 MG) PO SCH (10:00)
[2018-01-14] MEDS ORDERED: ENOXAPARIN SODIUM INJ 40 MG/0.4 ML DISP.SYRIN SUBCUT ONE (16:00)
--- NOTE | 2018-01-14 18:16 | PDOC PROGRESS REPORT ---
Subjective Progress Note for:: 01/14/18 Subjective:: Been admitted with altered mental status. Patient feels better today and she is able to say a few words. Her says she is actually like that at baseline sometimes talking and sometimes choosing not to interact Reason For Visit: ALTERED MENTAL STATUS,?SEPSIS Physical Exam Vital Signs: Temp Pulse Resp BP Pulse Ox 98.7 F 120 H 18 163/55 H 95 01/14/18 07:06 01/14/18 07:06 01/14/18 07:06 01/14/18 07:06 01/14/18 07:06 Intake & Output 01/13/18 01/14/18 01/15/18 06:59 06:59 06:59 Weight 61.7 kg General appearance: PRESENT: no acute distress Head exam: PRESENT: atraumatic, normocephalic Eye exam: PRESENT: conjunctiva pink, EOMI, PERRLA. ABSENT: scleral icterus Ear exam: PRESENT: normal external ear exam Mouth exam: PRESENT: moist, tongue midline Neck exam: ABSENT: carotid bruit, JVD, lymphadenopathy, thyromegaly Respiratory exam: PRESENT: clear to auscultation imelda. ABSENT: rales, rhonchi, wheezes Cardiovascular exam: PRESENT: RRR. ABSENT: diastolic murmur, rubs, systolic murmur Pulses: PRESENT: normal dorsalis pedis pul Vascular exam: PRESENT: normal capillary refill GI/Abdominal exam: PRESENT: normal bowel sounds, soft. ABSENT: distended, guarding, mass, organolmegaly, rebound, tenderness Rectal exam: PRESENT: deferred Extremities exam: PRESENT: full ROM. ABSENT: calf tenderness, clubbing, pedal edema Neurological exam: PRESENT: alert, awake. ABSENT: motor sensory deficit Psychiatric exam: PRESENT: homicidal ideation, suicidal ideation Skin exam: PRESENT: dry, intact, warm. ABSENT: cyanosis, rash Results Laboratory Results: 01/14/18 04:57 01/14/18 04:57 01/14/18 01/14/18 04:57 04:57 WBC 13.1 H RBC 4.02 Hgb 13.1 Hct 38.4 MCV 95 MCH 32.7 MCHC 34.3 RDW 13.2 Plt Count 211 Sodium 139.8 Potassium 3.8 Chloride 101 Carbon Dioxide 21 L Anion Gap 18 BUN 15 Creatinine 0.69 Est GFR ( Amer) > 60 Est GFR (Non-Af Amer) > 60 Glucose 156 H Calcium 8.7 01/13/18 01/14/18 18:17 00:16 Troponin I 0.019 0.025 Impressions: Head CT 01/13/18 00:00 IMPRESSION: CHRONIC CHANGES OF ATROPHY AND MICROVASCULAR ISCHEMIA. NO ACUTE PROCESS. EVIDENCE OF ACUTE STROKE: NO. Chest X-Ray 01/13/18 09:20 IMPRESSION: NO ACUTE RADIOGRAPHIC FINDING IN THE CHEST. Assessment & Plan - Diagnosis (1) SIRS (systemic inflammatory response syndrome) Is this a current diagnosis for this admission?: Yes Plan: I suspect patient will be septic however no clear source of infection at this time. [place] cultures are negative and patient is afebrile we will continue with empiric antibiotics (2) Altered mental status, unspecified Qualifiers: Altered mental status type: unspecified Qualified Code(s): R41.82 - Altered mental status, unspecified Is this a current diagnosis for this admission?: Yes Plan: Close to baseline (3) Hypertensive urgency Is this a current diagnosis for this admission?: Yes Plan: Pressures better controlled. Will continue to adjust medications as needed - Time Time Spent with patient: 15-24 minutes Anticipated discharge: Home Within: within 48 hours - Inpatient Certification Based on my medical assessment, after consideration of the patient's comorbidities, presenting symptoms, or acuity I expect that the services needed warrant INPATIENT care.: Yes Medical Necessity: Significant Comorbidiites Make Outpatient Treatment Too Risky - Plan Summary Plan Summary: Patient is still tachycardic and had assumed that this is likely from the acute infection. Will obtain further studies as needed
[2018-01-14] MEDS: ATORVASTATIN CALCIUM 80 MG TABLET PO SCH (21:01)
[2018-01-15] MEDS: LANSOPRAZOLE 30 MG TAB.RAP.DR PO SCH (05:09)
[2018-01-15 06:22] LABS: ABSOLUTE EOSINOPHILS # (AUTO) 0.2 10^3/uL (0.0-0.6); ABSOLUTE LYMPHOCYTES (AUTO) 1.4 10^3/uL (0.5-4.7); ABSOLUTE MONOCYTES (AUTO) 1.2 10^3/uL (0.1-1.4); BASOPHILS % (AUTO) 0.4 % (0-2); EOSINOPHILS % (AUTO) 2.6 % (0-6); HEMATOCRIT 33.5 % (36.0-47.0); HEMOGLOBIN 11.5 g/dL (12.0-15.5); LYMPHOCYTES % (AUTO) 16.2 % (13-45); MEAN CORPUSCULAR HEMOGLOBIN 32.7 pg (27.0-33.4); MEAN CORPUSCULAR HGB CONC 34.4 g/dL (32.0-36.0); MEAN CORPUSCULAR VOLUME 95 fl (80-97); PLATELET COUNT 206 10^3/uL (150-450); RED BLOOD COUNT 3.51 10^6/uL (3.72-5.28); RED CELL DISTRIBUTION WIDTH 13.2 % (11.5-14.0); SEGMENTED NEUTROPHILS % (AUTO) 67.8 % (42-78); TOTAL CELLS COUNTED % (AUTO) 100 %; WHITE BLOOD COUNT 8.9 10^3/uL (4.0-10.5)
[2018-01-15] MEDS: IMIPRAMINE HCL 25 MG TABLET PO SCH ×2 (08:23→17:28)
[2018-01-15] MEDS: ENOXAPARIN SODIUM INJ 40 MG/0.4 ML DISP.SYRIN SUBCUT SCH (10:24)
[2018-01-15] MEDS: LEVOFLOXACIN 500 MG/D5W RTU 500 MG/100 ML RTUPB IV SCH (10:25)
[2018-01-15] MEDS: METOPROLOL SUCCINATE 50 MG TAB.SR.24H PO SCH (10:25)
[2018-01-15] MEDS: TOLTERODINE TARTRATE 1 MG TABLET PO SCH ×2 (10:26→21:32)
[2018-01-15] MEDS: ASPIRIN 325 MG TABLET PO SCH (10:27)
[2018-01-15] MEDS: PROPRANOLOL HCL 40 MG TABLET PO SCH ×3 (10:27→17:29)
[2018-01-15] MEDS: VALSARTAN 160 MG TABLET PO SCH (10:27)
[2018-01-15] MEDS: RINGERS SOLUTION,LACTATED 1,000 ML IV PRN (13:03)
[2018-01-15] MEDS ORDERED: RINGERS SOLUTION,LACTATED 1,000 ML IV PRN (15:37)
--- NOTE | 2018-01-15 15:41 | PDOC PROGRESS REPORT ---
Subjective Progress Note for:: 01/15/18 Subjective:: Been admitted with altered mental status. Patient feels better today and she is much more verbal today. Actually making sense and able to converse and she is ready to eat and seems like a new person Reason For Visit: ALTERED MENTAL STATUS,?SEPSIS Physical Exam Vital Signs: Temp Pulse Resp BP Pulse Ox 98.3 F 73 16 139/67 H 94 01/15/18 11:58 01/15/18 14:43 01/15/18 14:43 01/15/18 11:58 01/15/18 14:43 Intake & Output 01/14/18 01/15/18 01/16/18 06:59 06:59 06:59 Intake Total 2249 Balance 2249 Weight 61.7 kg 60.8 kg General appearance: PRESENT: no acute distress, well-developed, well-nourished Head exam: PRESENT: atraumatic, normocephalic Eye exam: PRESENT: conjunctiva pink, EOMI, PERRLA. ABSENT: scleral icterus Ear exam: PRESENT: normal external ear exam Mouth exam: PRESENT: dry mucosa, moist, tongue midline Neck exam: ABSENT: carotid bruit, JVD, lymphadenopathy, thyromegaly Respiratory exam: PRESENT: clear to auscultation imelda. ABSENT: rales, rhonchi, wheezes Cardiovascular exam: PRESENT: RRR. ABSENT: diastolic murmur, rubs, systolic murmur Pulses: PRESENT: normal dorsalis pedis pul Vascular exam: PRESENT: normal capillary refill GI/Abdominal exam: PRESENT: normal bowel sounds, soft. ABSENT: distended, guarding, mass, organolmegaly, rebound, tenderness Rectal exam: PRESENT: deferred Extremities exam: PRESENT: full ROM. ABSENT: calf tenderness, clubbing, pedal edema Neurological exam: PRESENT: alert, awake, oriented to person, oriented to place , oriented to time, oriented to situation, CN II-XII grossly intact. ABSENT: motor sensory deficit Psychiatric exam: PRESENT: appropriate affect, normal mood. ABSENT: homicidal ideation, suicidal ideation Skin exam: PRESENT: dry, intact, warm. ABSENT: cyanosis, rash Results Laboratory Results: 01/15/18 04:55 01/14/18 04:57 01/15/18 04:55 WBC 8.9 RBC 3.51 L Hgb 11.5 L Hct 33.5 L MCV 95 MCH 32.7 MCHC 34.4 RDW 13.2 Plt Count 206 Seg Neutrophils % 67.8 Lymphocytes % 16.2 Monocytes % 13.0 Eosinophils % 2.6 Basophils % 0.4 Absolute Neutrophils 6.0 Absolute Lymphocytes 1.4 Absolute Monocytes 1.2 Absolute Eosinophils 0.2 Absolute Basophils 0.0 01/13/18 01/14/18 18:17 00:16 Troponin I 0.019 0.025 Impressions: Head CT 01/13/18 00:00 IMPRESSION: CHRONIC CHANGES OF ATROPHY AND MICROVASCULAR ISCHEMIA. NO ACUTE PROCESS. EVIDENCE OF ACUTE STROKE: NO. Chest X-Ray 01/13/18 09:20 IMPRESSION: NO ACUTE RADIOGRAPHIC FINDING IN THE CHEST. Assessment & Plan - Diagnosis (1) SIRS (systemic inflammatory response syndrome) Is this a current diagnosis for this admission?: Yes Plan: Source of infection is still not clear to me. She had a bandemia on admission but this has resolved on her current antibiotics she is Day 3 on Levaquin and she seems to have responded to this. She probably can be discharged home in another day or 2 with her spouse. I have ordered physical therapy and has since she is awake today will start feeding her Her tachycardia is also resolving and I feel this is likely from acute infection. (2) Altered mental status, unspecified Qualifiers: Altered mental status type: unspecified Qualified Code(s): R41.82 - Altered mental status, unspecified Is this a current diagnosis for this admission?: Yes Plan: Close to baseline (3) Hypertensive urgency Is this a current diagnosis for this admission?: Yes Plan: Blood pressure is much better. We will continue with her home antihypertensives - Time Time Spent with patient: 15-24 minutes Medications reviewed and adjusted accordingly: Yes Anticipated discharge: Home Within: within 48 hours - Inpatient Certification Based on my medical assessment, after consideration of the patient's comorbidities, presenting symptoms, or acuity I expect that the services needed warrant INPATIENT care.: Yes Medical Necessity: Need For IV Fluids, Need for IV Antibiotics
[2018-01-15] MEDS: ATORVASTATIN CALCIUM 80 MG TABLET PO SCH (21:31)
[2018-01-16] MEDS: LANSOPRAZOLE 30 MG TAB.RAP.DR PO SCH (05:29)
[2018-01-16] MEDS: IMIPRAMINE HCL 25 MG TABLET PO SCH ×2 (08:59→17:57)
--- NOTE | 2018-01-16 09:30 | PROGRESS NOTE E ---
Progress Note NAME: CARO COKER : 1945 AGE: 72Y DATE: 01/16/2018 ROOM: 538 SUBJECTIVE: The patient is sitting up in bed. She states she feels much better today. The patient denies any nausea, vomiting, diarrhea. No shortness of breath, dizziness or chest pain. No fevers or chills. The patient has been afebrile. Her blood pressures have been in a good range and the patient does not voice any other concerns at this time. I had a discussion with the patient regarding admission. The patient does state that she is on nitrofurantoin chronically for urinary tract prophylaxis. Therefore, this may have skewed the actual culture. The patient is agreeable to this. Although hypertensive encephalopathy was a thought, the patient was febrile on admission. REVIEW OF SYSTEMS: The rest of the review of systems is negative. MEDICATIONS: Medications have been reviewed. OBJECTIVE: GENERAL: The patient is a 72-year-old female who is awake, alert, and oriented to person, place, time and situation. She is a verbal conversationalist, does not appear to be any acute distress. VITAL SIGNS: As follows: Temperature 98.1, pulse 70, respirations 16, blood pressure 129/69, oxygen saturation 96% on room air. SKIN: Warm and dry. No rash. She is not diaphoretic. HEENT: Pupils are equal, round and reactive to light and accommodation. Conjunctivae pink. There is no evidence of JVP. CARDIOVASCULAR: Heart is regular. No murmur or rub. CHEST: Clear, symmetrical and unlabored. ABDOMEN: Soft, nontender. Nondistended. BACK: No CVA tenderness or sacral edema. EXTREMITIES: No clubbing, cyanosis or edema. PSYCHIATRIC: Appropriate affect, pleasant mood. DIAGNOSTICS Lab values are as follows: Hematology obtained on 01/15/2018: WBC 0.9, hemoglobin 12.5, hematocrit 33.5, platelet count 306,000. Chemistry obtained on 01/14/2018: Sodium 139, potassium 3.8, chloride 101, carbon dioxide 21, BUN 15, creatinine 1.69, glucose 156, calcium 8.7. IMPRESSION AND PLAN: 1. SEPSIS OF UNCERTAIN ETIOLOGY. I do feel thought that this was urinary tract infection. Given that the patient is on Macrobid, this probably skewed the culture. The patient was responsive to Levaquin. No longer febrile. No longer tachycardiac and so forth. We will discontinue IV fluids, transition to oral antibiotics and follow. 2. ACUTE ENCEPHALOPATHY SECONDARY TO ABOVE. The patient appears to be back to baseline. 3. HYPERTENSIVE URGENCY. This is resolved with the patient's home blood pressure medications. 4. CORONARY ARTERY DISEASE. Continue the patient's home medications. DISPOSITION: The patient is a FULL CODE. Pending patient's symptomatology and diagnostic findings, we will reevaluate in the a.m. for possible discharge. Time spent on this followup including assessment and plan, physical examination, patient education, and review of records is 25 minutes. DICTATING PHYSICIAN: SOBIA WALDEN NP [id number] PHY#: [id number] ID: [id number] JOB#: [id number] ACCT: [id number] cc: >
[2018-01-16] MEDS: ENOXAPARIN SODIUM INJ 40 MG/0.4 ML DISP.SYRIN SUBCUT SCH (10:20)
[2018-01-16] MEDS: METOPROLOL SUCCINATE 50 MG TAB.SR.24H PO SCH (10:21)
[2018-01-16] MEDS: VALSARTAN 160 MG TABLET PO SCH (10:21)
[2018-01-16] MEDS: ASPIRIN 325 MG TABLET PO SCH (10:21)
[2018-01-16] MEDS: LEVOFLOXACIN 500 MG TABLET PO SCH (10:22)
[2018-01-16] MEDS: TOLTERODINE TARTRATE 1 MG TABLET PO SCH ×2 (10:22→21:03)
[2018-01-16] MEDS: PROPRANOLOL HCL 40 MG TABLET PO SCH ×3 (10:22→17:57)
[2018-01-16] MEDS: ATORVASTATIN CALCIUM 80 MG TABLET PO SCH (21:03)
[2018-01-17] MEDS: LANSOPRAZOLE 30 MG TAB.RAP.DR PO SCH (05:06)
[2018-01-17] MEDS: IMIPRAMINE HCL 25 MG TABLET PO SCH ×2 (08:37→18:16)
[2018-01-17] MEDS: METOPROLOL SUCCINATE 50 MG TAB.SR.24H PO SCH (10:34)
[2018-01-17] MEDS: ASPIRIN 325 MG TABLET PO SCH (10:35)
[2018-01-17] MEDS: PROPRANOLOL HCL 40 MG TABLET PO SCH ×3 (10:36→18:16)
[2018-01-17] MEDS: VALSARTAN 160 MG TABLET PO SCH (10:36)
[2018-01-17] MEDS: TOLTERODINE TARTRATE 1 MG TABLET PO SCH ×2 (10:36→21:31)
[2018-01-17] MEDS: LEVOFLOXACIN 500 MG TABLET PO SCH (10:36)
[2018-01-17] MEDS: ENOXAPARIN SODIUM INJ 40 MG/0.4 ML DISP.SYRIN SUBCUT SCH (10:37)
[2018-01-17] MEDS ORDERED: AMLODIPINE BESYLATE 5 MG TABLET PO ONE (12:44)
--- NOTE | 2018-01-17 13:05 | PROGRESS NOTE E ---
Progress Note NAME: CARO COKER : 1945 AGE: 72Y DATE: 01/17/2018 ROOM: 538 SUBJECTIVE: The patient is currently lying in bed. The patient's is present at bedside and active in the patient's care. His concern is the patient's mobility as she has worked with physical therapy and requires a significant amount of assistance. The patient's mental status, though, is at baseline according to the patient's . The patient has been afebrile. Her blood pressure has been in a good range. However, there is some elevation. Some of this may be increasing agitation and the patient does not voice any other concerns at this time. REVIEW OF SYSTEMS: The rest of review of systems is negative. MEDICATIONS: Medications have been reviewed. OBJECTIVE: GENERAL: The patient is a 72-year-old female who is awake, alert. She is oriented to person, place, time, and situation. She does not appear to be in any acute distress. VITAL SIGNS: Are as follows: Temperature is 97.7, pulse 53, respirations 16, blood pressure 169/64, oxygen saturation 96% on room air. SKIN: Warm and dry. No rash. Not diaphoretic. HEENT: Pupils equal, round and reactive to light and accommodation. Conjunctivae are pink. There is no evidence of JVP. CVS: Heart is regular. There is no murmur or rub. CHEST: Clear, symmetrical, unlabored. ABDOMEN: Soft, nontender, nondistended. BACK: No CVA tenderness or sacral edema. EXTREMITIES: No clubbing, cyanosis or edema. PSYCHIATRIC: The patient is pleasant. DIAGNOSTICS: Lab values are as follows: Hematology obtained on 01/15/2018: WBC is 0.9, hemoglobin 12.5, hematocrit is 33.5, platelet count is 206,000. Chemistry obtained on 01/14/2018: Sodium is 139, potassium 3.8, chloride 101, carbon dioxide of 21, BUN 15, creatinine is 0.69. Glucose 156, calcium is 8.7. IMPRESSION AND PLAN: 1. SEPSIS OF UNCERTAIN ETIOLOGY, APPEARS TO BE URINARY TRACT INFECTION. The patient was treated outpatient with Macrobid, which I feel has probably skewed the culture. The patient was responsive to Levaquin. The patient has really not required any other treatment but Levaquin and has complete return to her baseline from a mental status standpoint. 2. ACUTE ENCEPHALOPATHY, SECONDARY TO NUMBER 1 - RESOLVED. 3. HYPERTENSIVE URGENCY. Did resume the patient's home medications, however, additionally added Norvasc as well. 4. CORONARY ARTERY DISEASE. Continue the patient's home medications. DISPOSITION: The patient is a FULL CODE. Pending patient's symptomatology and diagnostic findings, we will reevaluate in the a.m. The patient would like to go to rehab as soon as a bed is available. Time spent on this followup including assessment and plan, physical examination, patient education, review of records, and family meeting is 25 minutes. DICTATING PHYSICIAN: SOBIA WALDEN NP [id number] PHY#: [id number] ID: [id number] JOB#: [id number] ACCT: [id number] cc: >
[2018-01-17] MEDS: ATORVASTATIN CALCIUM 80 MG TABLET PO SCH (21:31)
[2018-01-18] MEDS: LANSOPRAZOLE 30 MG TAB.RAP.DR PO SCH (06:05)
--- NOTE | 2018-01-18 09:27 | PDOC TRANSFER SUMMARY ---
General - Admit/Disc Date/PCP Admission Date/Primary Care Provider: 01/13/18 15:13 DONOVAN VELEZ MD Discharge Date: 01/18/18 - Discharge Diagnosis (1) Altered mental status, unspecified Is this a current diagnosis for this admission?: Yes (2) Hypertensive urgency Is this a current diagnosis for this admission?: Yes (3) SIRS (systemic inflammatory response syndrome) Is this a current diagnosis for this admission?: Yes (4) Coronary artery disease Is this a current diagnosis for this admission?: Yes - Additional Information Resuscitation Status: Full Code Home Medications: Aspirin [Aspirin 325 mg Tablet] 325 mg PO DAILY 01/13/18 Aspirin/Acetaminophen/Caffeine [Excedrin Migraine Caplet] 2 tab PO DAILYP PRN Atorvastatin Calcium [Lipitor 80 mg Tablet] 80 mg PO QHS 01/13/18 Docusate Sodium [Colace 100 mg Capsule] 100 mg PO BID 01/13/18 Imipramine HCl [Tofranil 25 mg Tablet] 25 mg PO QPM 01/13/18 Imipramine HCl [Tofranil 25 mg Tablet] 50 mg PO QAM 01/13/18 Lansoprazole [Prevacid] 30 mg PO DAILY 01/13/18 Metformin HCl [Glucophage XR 500 mg Tablet] 500 mg PO DAILY 01/13/18 Metoprolol Succinate [Toprol XL 100 mg Tablet] 100 mg PO DAILY 01/13/18 Nitrofurantoin Monohyd/M-Cryst [Macrobid 100 mg Capsule] 1 cap PO BID 01/13/18 Propranolol HCl 80 mg PO TID 01/13/18 Solifenacin Succinate [Vesicare] 5 mg PO DAILY 01/13/18 Valsartan [Diovan] 320 mg PO DAILY 01/13/18 History of Present Illness Admission Date/PCP: 01/13/18 15:13 DONOVAN VELEZ MD History of Present Illness: CARO COKER is a 72 year old female was brought to the emergency room with altered mental status. Patient is confused and barely verbal and I am unable to obtain any information from her. Review of the ED records indicate that patient was at her baseline mental status when she went to bed last night. found her confused and extremely weak this morning on it unable to get out of bed. Being unable to converse and at best able to order a few garbled words. 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 She has been having frequent falls more recently and received physical therapy which seemed to improve this but started falling again. He was referred to a neurologist for workup which included a 24-hour EEG study which was inconclusive and a [address] scan done today shows chronic changes of atrophy and microvascular ischemia but no acute process. Hospital Course Hospital Course: This is a 72 years old female patient admitted for altered mental status. Her blood work, CT scan were unremarkable. The diagnosis of SIRS considered and patient was started empirically on Levaquin. No clear source of infection identified. Her urine and blood cultures were negative. At that admission also patient noticed to have hypertensive emergency with blood pressure of 190/98. Today on the day of discharge her blood pressure is 137/ 80. Patient has been doing well and yesterday her reported that patient is at her baseline with regard to her mental status. This morning I seen patient propped up in bed and enjoying her breakfast. Her vital signs and blood works are unremarkable. Patient is stable enough to be discharged today. I will continue all her medication I will send her also with 3 days of Levaquin. Physical Exam Vital Signs: Temp Pulse Resp BP Pulse Ox 97.4 F 64 16 137/80 H 98 01/18/18 08:02 01/18/18 08:02 01/18/18 08:02 01/18/18 08:02 01/18/18 08:02 Intake & Output 01/17/18 01/18/18 01/19/18 06:59 06:59 06:59 Intake Total 1406 568 Balance 1406 568 Weight 63.6 kg 63 kg General appearance: PRESENT: no acute distress, well-developed, well-nourished Head exam: PRESENT: atraumatic, normocephalic Eye exam: PRESENT: conjunctiva pink, EOMI, PERRLA. ABSENT: scleral icterus Ear exam: PRESENT: normal external ear exam Mouth exam: PRESENT: moist, tongue midline Neck exam: ABSENT: carotid bruit, JVD, lymphadenopathy, thyromegaly Respiratory exam: PRESENT: clear to auscultation imelda. ABSENT: rales, rhonchi, wheezes Cardiovascular exam: PRESENT: RRR. ABSENT: diastolic murmur, rubs, systolic murmur Pulses: PRESENT: normal dorsalis pedis pul Vascular exam: PRESENT: normal capillary refill GI/Abdominal exam: PRESENT: normal bowel sounds, soft. ABSENT: distended, guarding, mass, organolmegaly, rebound, tenderness Rectal exam: PRESENT: deferred Extremities exam: PRESENT: full ROM. ABSENT: calf tenderness, clubbing, pedal edema Neurological exam: PRESENT: alert, awake, oriented to person, oriented to place , oriented to time, oriented to situation. ABSENT: motor sensory deficit Psychiatric exam: PRESENT: appropriate affect, normal mood. ABSENT: homicidal ideation, suicidal ideation Skin exam: PRESENT: dry, intact, warm. ABSENT: cyanosis, rash Results Laboratory Results: 01/15/18 04:55 01/14/18 04:57 01/13/18 01/14/18 18:17 00:16 Troponin I 0.019 0.025 Impressions: Head CT 01/13/18 00:00 IMPRESSION: CHRONIC CHANGES OF ATROPHY AND MICROVASCULAR ISCHEMIA. NO ACUTE PROCESS. EVIDENCE OF ACUTE STROKE: NO. Chest X-Ray 01/13/18 09:20 IMPRESSION: NO ACUTE RADIOGRAPHIC FINDING IN THE CHEST. Qualifiers - * PATIENT BEING DISCHARGED WITH ANY OF THE FOLLOWING DIAGNOSIS: No
[2018-01-18] MEDS ORDERED: AMLODIPINE BESYLATE 5 MG TABLET PO SCH (10:00)
[2018-01-18] MEDS: TOLTERODINE TARTRATE 1 MG TABLET PO SCH (10:27)
[2018-01-18] MEDS: IMIPRAMINE HCL 25 MG TABLET PO SCH (10:27)
[2018-01-18] MEDS: LEVOFLOXACIN 500 MG TABLET PO SCH (10:27)
[2018-01-18] MEDS: PROPRANOLOL HCL 40 MG TABLET PO SCH (10:27)
[2018-01-18] MEDS: METOPROLOL SUCCINATE 50 MG TAB.SR.24H PO SCH (10:27)
[2018-01-18] MEDS: VALSARTAN 160 MG TABLET PO SCH (10:27)
[2018-01-18] MEDS: ASPIRIN 325 MG TABLET PO SCH (10:27)
[2018-01-18] MEDS: ENOXAPARIN SODIUM INJ 40 MG/0.4 ML DISP.SYRIN SUBCUT SCH (10:28)
[2018-01-18 12:24] VITALS: BP 140/80
--- NOTE | 2018-02-12 18:29 | Progress Note ---
Provider Note Provider Note: Hypertensive urgency is a correct diagnosis
--- NOTE | 2018-02-24 08:52 | Physician Advisory Note ---
Physician Advisor ProgressNote .: Pursuant to the plan for [facility], I have reviewed the medical record for this patient. Physician Advisor Statement: Prior note by Emily documented pt's altered mental status was due to acute encephalopathy due to sepsis, likely due to UTI, with ur cx falsely negative due to prior abx. Findings on H&P indicate patient was "confused & barely verbal, unable to converse". Initial total Elvis Coma Score was 13. By time of d/c, her mental status was back to baseline. She spiked a fever of 101.6 the first night, & was tachycardic & tachypneic, w/ initial O2 sats as low as 90-91%, dry mucosae & urinary incontinence. Lungs were consistently clear, no cough/sputum, no skin breakdown noted. Please clarify on DCS addendum: 1. what was the most likely underlying cause of the AMS - do you agree it was probably due to Acute Metabolic Encephalopathy related to possible acute infxn, or if not, what was the underlying dx? (Cerebrovascular atherosclerotic dz or Acute Cerebrovascular insufficiency, ...?) 2. Do you believe the pt may have had a UTI w/falsely negative ur cx, or what was the possible underlying infxn being tx'd with abx during this adm & for 3 more days on d/c? (Bronchitis, or ...?) Thanks! CK REFERENCE: Whenever there is AMS, we need to specify the type of altered mental status (AMS ) present: A. Metabolic Encephalopathy due to = AMS due to acute or chronic medical disease state, such as systemic metabolic or intracranial process that is usually reversible when the underlying cause is corrected. Causes include fever, infection, dehydration, acidosis, sepsis, hypoxia, electrolyte imbalance , B. Toxic Encephalopathy due to =AMS due to drug, poison, or toxin. Usually reversible. C. Acute Delirium due to =nonspecific disorientation/behavioral problem with a cause that can be psychiatric, encephalopathic, or intracranial. May show confusion, disorientation, agitation, inattention, . -Delirium may be due to: Acute Metabolic Encephalopathy, due to dementia with sundowning "... acute manic episode ..." *If documentation does not specify the underlying cause of delirium, the ICD-10 coding classification attributes it to a psychiatric origin (such as schizophrenia, thanh, or rapid progression of dementia), with a correspondingly lower severity of illness, than if there is encephalopathy.
--- NOTE | 2018-03-04 16:12 | Progress Note ---
Provider Note Provider Note: This is an addendum to discharge summary I dictated for Mrs. Ngo. Patient does not have sepsis. She has SIRS which also a possible cause for her metabolic encephalopathy.
== END 2018-01-18 16:56 | DRG 948 ==
LOC: ER 09:09 → EH 15:13 → 5 20:28
PROVIDERS: ADMIT Internal Medicine; ATTEND Internal Medicine
DX: R41.82 Altered mental status, unspecified (principal); R65.10 Systemic inflammatory response syndrome (SIRS) of non-infectious origin without acute organ dysfunction; I16.0 Hypertensive urgency; I25.10 Atherosclerotic heart disease of native coronary artery without angina pectoris; I10 Essential (primary) hypertension; D72.825 Bandemia; R00.0 Tachycardia, unspecified; R29.6 Repeated falls; Z86.73 Personal history of transient ischemic attack (TIA), and cerebral infarction without residual deficits; Z91.81 History of falling; Z95.5 Presence of coronary angioplasty implant and graft; Z88.0 Allergy status to penicillin; Z79.84 Long term (current) use of oral hypoglycemic drugs
CPT/HCPCS: 36415; 70450; 71045; 80048; 80053; 81001; 82553; 84484; 85025; 85027; 87040; 87086; 93005; 93010; 96360; 96361; 99285; G8978-GP; G8979-GP; G8996-GN; G8997-GN; G8998-GN; J0360; J1650; J1956; J3490; J7030; J7120

== ENCOUNTER 2018-01-19 18:41 | Inpatient (IN) | payer MEDICARE ==
[2018-01-19] MEDS ORDERED: ACETAMINOPHEN 325 MG TABLET PO ONE (19:09)
--- NOTE | 2018-01-19 19:19 | ER Document Report ---
ED General - General Stated Complaint: ALTERED MENTAL STATUS Time Seen by Provider: 01/19/18 19:01 Notes: Patient is a 72-year-old female that comes by EMS from [place] where she is in rehab for chief complaint of altered mental status. She was found to have a fever of 101 F by EMS and an initial oxygen saturation on room air of 85%. states that normally she is conversational and alert with some baseline aphasia, now she is confused, minimally responsive, not answering most questions appropriately. Patient was discharged from the hospital here yesterday to go to rehab because of frequent falls and weakness per . Past medical history includes CAD, hypertension, type 2 diabetes on metformin, CVA, on aspirin, no other blood thinners. Never smoker, no history of asthma. TRAVEL OUTSIDE OF THE [place] IN LAST 30 DAYS: No - Related Data Allergies/Adverse Reactions: divalproex sodium [From Depakote] Allergy (Verified 01/13/18 10:07) Penicillins Allergy (Verified 01/13/18 10:07) propoxyphene [Propoxyphene] Allergy (Verified 01/13/18 10:07) Past Medical History - General Information source: Relative, Emergency Med Personnel Cannot obtain history due to: Altered mental status - Social History Smoking Status: Never Smoker Frequency of alcohol use: None Drug Abuse: None Lives with: Spouse/Significant other, Care Home Family History: Reviewed & Not Pertinent, Other - Not available - Past Medical History Cardiac Medical History: Reports: Hx Coronary Artery Disease, Hx Hypertension Neurological Medical History: Reports: Hx Cerebrovascular Accident Renal/ Medical History: Denies: Hx Peritoneal Dialysis Psychiatric Medical History: Denies: Hx Depression Past Surgical History: Reports: Hx Cardiac Catheterization - Stents x 2, Hx Orthopedic Surgery - R knee - Immunizations Hx Diphtheria, Pertussis, Tetanus Vaccination: Yes Review of Systems - Review of Systems Constitutional: See HPI EENT: No symptoms reported Cardiovascular: No symptoms reported Respiratory: No symptoms reported Gastrointestinal: No symptoms reported Genitourinary: No symptoms reported Female Genitourinary: No symptoms reported Musculoskeletal: No symptoms reported Skin: No symptoms reported Hematologic/Lymphatic: No symptoms reported Neurological/Psychological: See HPI Physical Exam - Vital signs Vitals: Temp Resp 100.9 F H 33 H 01/19/18 19:03 01/19/18 19:03 - Notes Notes: GENERAL: Quiet but does respond, minimally interactive. HEAD: Normocephalic, atraumatic. EYES: Pupils equal, round, and reactive to light. Extraocular movements intact. ENT: Oral mucosa moist, tongue midline. NECK: Full range of motion. Supple. Trachea midline. LUNGS: Scattered rhonchi, worse on the left, no wheezes, no rales noted, no tachypnea or respiratory distress HEART: Regular rate and rhythm. No murmur ABDOMEN: Soft, non-tender. Non-distended. Bowel sounds present in all 4 quadrants. EXTREMITIES: Patient will not move her legs for me. Good golf club maker of the upper extremities, normal pulse and sensation of the upper extremities. Normal distal neurovascular exam of the lower extremities. BACK: no cervical, thoracic, lumbar midline tenderness. No saddle anesthesia, normal distal neurovascular exam. NEUROLOGICAL: Quiet but responsive, 1 word answers only, alert and oriented 2, cranial nerves intact but patient will not move her legs for me. SKIN: Hot, diaphoretic Course - Re-evaluation Re-evalutation: On my initial evaluation patient is hypoxic unless she is on oxygen, on 3 L nasal cannula she is at 94%, no tachypnea, scattered rhonchi mainly on the left , hypertensive at 189/90. She will tell me her name and she told me she was at the hospital, she would not answer any other questions, she only follows some commands, would not cooperate with complete neurological assessment, she is quiet but arousable. CT of the head unremarkable, chest x-ray showing expected left-sided pneumonia, culture sent. Starting on cefepime and vancomycin for hospital-acquired pneumonia. CBC shows leukocytosis with elevation of neutrophils but no bandemia. Chemistry shows hypokalemia, magnesium checked and is slightly low, giving magnesium and potassium. On reevaluation patient was hypertensive, unchanged otherwise. Still no distress. Will discuss for admission because of hospital-acquired pneumonia, hypoxia, hypokalemia. Discussed this with and patient. They state agreement with plan. Discussed with Dr. Ritter, hospitalist, patient will be admitted to telemetry full admission. - Vital Signs Vital signs: Temp Pulse Resp BP Pulse Ox 98.9 F 80 26 H 105/57 L 95 01/19/18 23:00 01/19/18 22:00 01/19/18 23:00 01/19/18 23:00 01/19/18 23:00 - Laboratory Result Diagrams: 01/19/18 19:27 01/19/18 19:27 Laboratory results interpreted by me: 01/19/18 01/19/18 01/19/18 19:27 19:27 19:27 WBC 12.5 H Seg Neuts % (Manual) 89 H Lymphocytes % (Manual) 2 L Abs Neuts (Manual) 11.8 H Abs Lymphs (Manual) 0.3 L VBG pH 7.49 H Potassium 2.9 L* Chloride 97 L Glucose 210 H POC Glucose Direct Bilirubin 0.6 H Alkaline Phosphatase 147 H Urine Protein Urine Blood 01/19/18 01/19/18 20:25 20:46 WBC Seg Neuts % (Manual) Lymphocytes % (Manual) Abs Neuts (Manual) Abs Lymphs (Manual) VBG pH Potassium Chloride Glucose POC Glucose 204 H Direct Bilirubin Alkaline Phosphatase Urine Protein 100 H Urine Blood SMALL H Discharge - Discharge Clinical Impression: Hypoxia, Hypokalemia Fever Qualifiers: Fever type: unspecified Qualified Code(s): R50.9 - Fever, unspecified Pneumonia Qualifiers: Pneumonia type: due to unspecified organism Laterality: left Lung location: lower lobe of lung Qualified Code(s): J18.1 - Lobar pneumonia, unspecified organism Altered mental status Qualifiers: Altered mental status type: unspecified Qualified Code(s): R41.82 - Altered mental status, unspecified Condition: Fair Disposition: ADMITTED INPATIENT Admitting Provider: Hospitalist Unit Admitted: Telemetry
[2018-01-19 19:46] LABS: VENOUS BLOOD BASE EXCESS 4.6 mmol/L; VENOUS BLOOD HCO3 27.9 mmol/L (20-32); VENOUS BLOOD PCO2 37.2 mmHg (35-63); VENOUS BLOOD PH 7.49 (7.30-7.42)
[2018-01-19 19:52] LABS: INTERNATIONAL RATION (INR) 0.95; PROTHROMBIN TIME 13.1 SEC (11.4-15.4)
--- NOTE | 2018-01-19 19:53 | RADIOLOGY REPORT (SQ) ---
EXAM DESCRIPTION: CT HEAD WITHOUT COMPLETED DATE/TIME: 01/19/2018 7:42 pm REASON FOR STUDY: altered mental status, hypertension COMPARISON: 01/13/2018 TECHNIQUE: Axial images acquired through the brain without intravenous contrast. Images reviewed wi th bone, brain and subdural windows. Additional sagittal and coronal reconstructions were generated. Images stored on PACS. All CT scanners at this facility use dose modulation, iterative reconstruction, and/or weight based d osing when appropriate to reduce radiation dose to as low as reasonably achievable (ALARA). [facility]: Dose Right [facility]: CareDose [facility]: Dose Right [facility]: Teradose 4D [facility]: Smart WISHI RADIATION DOSE: CT Rad equipment meets quality standard of care and radiation dose reduction techniq ues were employed. CTDIvol: 53.2 mGy. DLP: 884 mGy-cm. mGy. LIMITATIONS: None. FINDINGS: VENTRICLES: Prominent. CEREBRUM: No masses. No hemorrhage. No midline shift. No evidence for acute infarction. Areas of l ow density in the white matter most likely chronic small vessel ischemic changes. CEREBELLUM: No hemorrhage. No mass. There is an area of decreased attenuation in the right lobe of the cerebellum suggestive of an old infarct. EXTRAAXIAL SPACES: No fluid collections. No masses. ORBITS AND GLOBE: No intra- or extraconal masses. Normal contour of globe without masses. CALVARIUM: No fracture. PARANASAL SINUSES: No fluid or mucosal thickening. SOFT TISSUES: No mass or hematoma. OTHER: No other significant finding. IMPRESSION: CHRONIC MICROVASCULAR ISCHEMIA. NO ACUTE IMAGING FINDINGS IN THE BRAIN. EVIDENCE OF ACUTE STROKE: NO. COMMENT: Quality ID # [id number]: Final reports with documentation of one or more dose reduction techniques (e.g., Automated exposure control, adjustment of the mA and/or kV according to patient size, use of iterative reconstruction technique) TECHNICAL DOCUMENTATION: JOB ID: [id number] [employer]- All Rights Reserved Reading location - IP/workstation name: [email or web address]
--- NOTE | 2018-01-19 19:54 | RADIOLOGY REPORT (SQ) ---
EXAM DESCRIPTION: CHEST SINGLE VIEW COMPLETED DATE/TIME: 01/19/2018 7:43 pm REASON FOR STUDY: hypoxia, fever, altered mental status COMPARISON: None. EXAM PARAMETERS: NUMBER OF VIEWS: One view. TECHNIQUE: Single frontal radiographic view of the chest acquired. RADIATION DOSE: NA LIMITATIONS: None. FINDINGS: LUNGS AND PLEURA: There is increased opacification in the left base. The left hemidiaphra gm is indistinct. MEDIASTINUM AND HILAR STRUCTURES: No masses. Contour normal. HEART AND VASCULAR STRUCTURES: Heart normal in size. Normal vasculature. BONES: No acute findings. HARDWARE: None in the chest. OTHER: No other significant finding. IMPRESSION: Left lower lobe pneumonia. TECHNICAL DOCUMENTATION: JOB ID: [id number] [employer]- All Rights Reserved Reading location - IP/workstation name: [email or web address]
[2018-01-19 19:59] LABS: HEMATOCRIT 36.5 % (36.0-47.0); HEMOGLOBIN 12.5 g/dL (12.0-15.5); MEAN CORPUSCULAR HEMOGLOBIN 32.4 pg (27.0-33.4); MEAN CORPUSCULAR HGB CONC 34.4 g/dL (32.0-36.0); MEAN CORPUSCULAR VOLUME 94 fl (80-97); PLATELET COUNT 284 10^3/uL (150-450); RED BLOOD COUNT 3.88 10^6/uL (3.72-5.28); RED CELL DISTRIBUTION WIDTH 13.3 % (11.5-14.0); WHITE BLOOD COUNT 12.5 10^3/uL (4.0-10.5)
[2018-01-19 20:05] LABS: ALANINE AMINOTRANSFERASE 43 U/L (9-52); ALBUMIN 3.9 g/dL (3.5-5.0); ALKALINE PHOSPHATASE 147 U/L (38-126); ANION GAP 16 (5-19); ASPARTATE AMINO TRANSFERASE 32 U/L (14-36); BILIRUBIN,DIRECT 0.6 mg/dL (0.0-0.4); BILIRUBIN,TOTAL 0.8 mg/dL (0.2-1.3); BLOOD UREA NITROGEN 15 mg/dL (7-20); CALCIUM 9.2 mg/dL (8.4-10.2); CARBON DIOXIDE 28 mmol/L (22-30); CHLORIDE 97 mmol/L (98-107); CREATINE KINASE 124 U/L (30-135); GLUCOSE 210 mg/dL (75-110); SODIUM 140.5 mmol/L (137-145); TOTAL PROTEIN 6.9 g/dL (6.3-8.2)
[2018-01-19] MEDS ORDERED: CEFEPIME 2 GM/D5W RTU 2 GM/50 ML RTUPB IV ONE (20:13)
[2018-01-19] MEDS ORDERED: VANCOMYCIN HCL INJ 1000 MG VIAL IV ONE (20:14)
[2018-01-19 20:17] LABS: ABSOLUTE LYMPHOCYTES# (MANUAL) 0.3 10^3/uL (0.5-4.7); ABSOLUTE MONOCYTES # (MANUAL) 0.5 10^3/uL (0.1-1.4); ABSOLUTE NEUTROPHILS# (MANUAL) 11.8 10^3/uL (1.7-8.2); BAND NEUTROPHILS % (MANUAL) 5 % (3-5); BASOPHILS % (MANUAL) 0 % (0-2); CREATINE KINASE MB 0.83 ng/mL (<4.55); EOSINOPHILS % (MANUAL) 0 % (0-6); LYMPHOCYTES % (MANUAL) 2 % (13-45); MONOCYTES % (MANUAL) 4 % (3-13); SEGMENTED NEUTROPHILS % (MAN) 89 % (42-78); TOTAL CELLS COUNTED 100; TROPONIN I 0.015 ng/mL
[2018-01-19 20:18] LABS: PLATELET COMMENT ADEQUATE; PLATELET LARGE PRESENT; POLYCHROMASIA SLIGHT
[2018-01-19 20:19] LABS: POTASSIUM 2.9 mmol/L (3.6-5.0)
--- NOTE | 2018-01-19 20:41 | EKG REPORT ---
SEVERITY:- ABNORMAL ECG - SINUS RHYTHM PROBABLE LVH WITH SECONDARY REPOL ABNRM : Confirmed by: Sam Velez MD 19-Jan-2018 20:41:03
[2018-01-19 21:05] LABS: APPEARANCE,URINE SLIGHTLY-CLOUDY; BILIRUBIN,URINE NEGATIVE (NEGATIVE); COLOR,URINE YELLOW; GLUCOSE, URINE NEGATIVE (NEGATIVE); KETONES,URINE NEGATIVE (NEGATIVE); LEUKOCYTE ESTERASE,URINE NEGATIVE (NEGATIVE); NITRITE,URINE NEGATIVE (NEGATIVE); PROTEIN,URINE 100 mg/dL (NEGATIVE); URINE SPECIFIC GRAVITY 1.006; UROBILINOGEN,URINE NEGATIVE mg/dL (<2.0)
[2018-01-19] MEDS ORDERED: MAGNESIUM SULFATE/D5W 1 GM/100 ML RTUPB IV SCH (21:30)
[2018-01-19] MEDS ORDERED: DEXTROSE 40% GEL 15 GM TUBE PO PRN ×2 (21:37)
[2018-01-19] MEDS ORDERED: CHLORPHENIRAMINE MALEATE 4 MG TABLET PO ONE (21:37)
[2018-01-19] MEDS ORDERED: HYDROCODONE BIT/HOMATROPINE SYRUP 5 ML UDCUP PO PRN (21:37)
[2018-01-19] MEDS ORDERED: IPRATROPIUM/ALBUTEROL 0.5-2.5 MG/3 ML AMPUL NEB PRN (21:37)
[2018-01-19] MEDS ORDERED: GLUCAGON,HUMAN RECOMB 1 MG INJ IM PRN (21:37)
[2018-01-19] MEDS ORDERED: DEXTROSE 50%-WATER 25 GM/50 ML DISP.SYRIN IV PRN ×2 (21:37)
[2018-01-19] MEDS ORDERED: POTASSI CL 20 MEQ/1/2NS 1L 20 MEQ/1,000 ML RTUINJ IV ONE (21:38)
[2018-01-19] MEDS ORDERED: VANCOMYCIN HCL 0 MG in DEXTROSE 5%-WATER 250 ML IV NR (21:45)
[2018-01-19] MEDS ORDERED: ATORVASTATIN CALCIUM 80 MG TABLET PO ONE (22:30)
[2018-01-19] MEDS ORDERED: IMIPRAMINE HCL 25 MG TABLET PO ONE (22:30)
[2018-01-19] MEDS ORDERED: FLUTICASONE NASAL SPRAY 50 MCG/SPRY 120 SPRAY/16 GM NASL ONE (22:30)
[2018-01-19] MEDS: POTASSI CL 20 MEQ/50 ML RIDER 20 MEQ/50 ML RTUPB IV SCH (23:00)
[2018-01-19] MEDS: IPRATROPIUM/ALBUTEROL 0.5-2.5 MG/3 ML AMPUL NEB SCH (23:58)
[2018-01-20] MEDS: FLUTICASONE NASAL SPRAY 50 MCG/SPRY 120 SPRAY/16 GM NASL SCH ×3 (02:37→21:49)
[2018-01-20] MEDS: HEPARIN SOD (PORCINE) 5,000 UNIT/ML 1 ML SYRINGE SUBCUT SCH ×4 (02:48→21:49)
[2018-01-20] MEDS ORDERED: POTASSI CL 20 MEQ/50 ML RIDER 20 MEQ/50 ML RTUPB IV ONE (03:15)
[2018-01-20] MEDS: POTASSI CL 20 MEQ/50 ML RIDER 20 MEQ/50 ML RTUPB IV SCH (03:28)
[2018-01-20 05:42] LABS: ANION GAP 14 (5-19); BLOOD UREA NITROGEN 19 mg/dL (7-20); CALCIUM 8.1 mg/dL (8.4-10.2); CARBON DIOXIDE 26 mmol/L (22-30); CHLORIDE 100 mmol/L (98-107); GLUCOSE 208 mg/dL (75-110); POTASSIUM 3.7 mmol/L (3.6-5.0); SODIUM 139.8 mmol/L (137-145)
--- NOTE | 2018-01-20 06:06 | PDOC H&P ---
History of Present Illness Admission Date/PCP: 01/19/18 21:53 DONOVAN VELEZ MD Patient complains of: Shortness of breath History of Present Illness: CARO COKER is a 72 year old female with a past medical history of dementia, coronary artery disease, CVA and falls. She is a long-term senior care resident who was discharged 24 hours ago following an admission for altered mental status and systemic inflammatory response syndrome. No source was identified. She returns after senior care staff find her tachypneic with altered mental status. She is brought to the emergency room for evaluation is found to have fever tachypnea hypoxia and a left lower lobe infiltrate. The patient is unable to elaborate secondary to underlying dementia and delirium. Past Medical History Cardiac Medical History: Reports: Coronary Artery Disease, Hypertension Pulmonary Medical History: Reports: Bronchitis Endocrine Medical History: Reports: Diabetes Mellitus Type 1, Diabetes Mellitus Type 2 Psychiatric Medical History: Denies: Depression Past Surgical History Past Surgical History: Reports: Cardiac Catheterization - Stents x 2, Orthopedic Surgery - R knee Social History Information Source: [facility] Records Lives with: Spouse/Significant other, [facility] Smoking Status: Never Smoker Frequency of Alcohol Use: None Hx Recreational Drug Use: No Drugs: None Hx Prescription Drug Abuse: No - Advance Directive Resuscitation Status: Full Code Family History Family History: Other - Not available Parental Family History Reviewed: No - Unknown to the patient Children Family History Reviewed: No - Unknown to the patient Sibling(s) Family History Reviewed.: No - Unknown to the patient Medication/Allergy Home Medications: Aspirin [Aspirin 325 mg Tablet] 325 mg PO DAILY 01/13/18 Aspirin/Acetaminophen/Caffeine [Excedrin Migraine Caplet] 2 tab PO DAILYP PRN Atorvastatin Calcium [Lipitor 80 mg Tablet] 80 mg PO QHS 01/13/18 Docusate Sodium [Colace 100 mg Capsule] 100 mg PO BID 01/13/18 Imipramine HCl [Tofranil 25 mg Tablet] 25 mg PO QPM 01/13/18 Imipramine HCl [Tofranil 25 mg Tablet] 50 mg PO QAM 01/13/18 Lansoprazole [Prevacid] 30 mg PO DAILY 01/13/18 Metformin HCl [Glucophage XR 500 mg Tablet] 500 mg PO DAILY 01/13/18 Metoprolol Succinate [Toprol XL 100 mg Tablet] 100 mg PO DAILY 01/13/18 Nitrofurantoin Monohyd/M-Cryst [Macrobid 100 mg Capsule] 1 cap PO BID 01/13/18 Propranolol HCl 80 mg PO TID 01/13/18 Solifenacin Succinate [Vesicare] 5 mg PO DAILY 01/13/18 Valsartan [Diovan] 320 mg PO DAILY 01/13/18 Levofloxacin [Levaquin 500 mg Tablet] 500 mg PO DAILY #3 tablet 01/18/18 Allergies/Adverse Reactions: divalproex sodium [From Depakote] Allergy (Verified 01/13/18 10:07) Penicillins Allergy (Verified 01/13/18 10:07) propoxyphene [Propoxyphene] Allergy (Verified 01/13/18 10:07) Review of Systems ROS unobtainable: Due to mental status Physical Exam Vital Signs: Temp Pulse Resp BP Pulse Ox 99.0 F 86 18 146/71 H 100 01/20/18 04:00 01/20/18 04:00 01/20/18 04:00 01/20/18 04:00 01/20/18 04:00 Pulse Oximeter Continuous Start: 01/19/18 21: 37 Freq: RTQ4 Status: Active Document 01/20/18 04:00 [facility] (Rec: 01/20/18 05:07 SFL [id number]) Pulse Oximetry Assessment Oxygen Saturation (92-100) 100 Oxygen Flow Rate (L/min) 2 Oxygen Delivery Method Nasal Cannula Equipment Usage Equipment in Use Continuous SpO2 Machine # 7 Intake & Output 01/18/18 01/19/18 01/20/18 11:59 11:59 11:59 Weight 61.1 kg General appearance: PRESENT: cooperative, severe distress. ABSENT: no acute distress, hard of hearing, mild distress Head exam: PRESENT: atraumatic, normocephalic Eye exam: PRESENT: conjunctiva pink, EOMI, PERRLA. ABSENT: scleral icterus Ear exam: PRESENT: normal external ear exam Mouth exam: PRESENT: moist, tongue midline Neck exam: ABSENT: carotid bruit, JVD, lymphadenopathy, thyromegaly Respiratory exam: PRESENT: accessory muscle use, crackles, rales, retraction, rhonchi, symmetrical, tachypnea. ABSENT: wheezes Cardiovascular exam: PRESENT: tachycardia. ABSENT: diastolic murmur, rubs, systolic murmur Pulses: PRESENT: normal dorsalis pedis pul Vascular exam: PRESENT: normal capillary refill GI/Abdominal exam: PRESENT: normal bowel sounds, soft. ABSENT: distended, guarding, mass, organolmegaly, rebound, tenderness Rectal exam: PRESENT: deferred Extremities exam: PRESENT: full ROM. ABSENT: calf tenderness, clubbing, pedal edema Neurological exam: PRESENT: alert, awake, oriented to person, CN II-XII grossly intact. ABSENT: motor sensory deficit Psychiatric exam: PRESENT: appropriate affect, normal mood. ABSENT: homicidal ideation, suicidal ideation Skin exam: PRESENT: dry, intact, warm. ABSENT: cyanosis, rash Results Laboratory Results: 01/20/18 05:02 01/20/18 05:02 Sodium 139.8 Potassium 3.7 Chloride 100 Carbon Dioxide 26 Anion Gap 14 BUN 19 Creatinine 0.83 Est GFR ( Amer) > 60 Est GFR (Non-Af Amer) > 60 Glucose 208 H Calcium 8.1 L Impressions: Chest X-Ray 01/19/18 19:10 IMPRESSION: Left lower lobe pneumonia. Head CT 01/19/18 19:10 IMPRESSION: CHRONIC MICROVASCULAR ISCHEMIA. NO ACUTE IMAGING FINDINGS IN THE BRAIN. EVIDENCE OF ACUTE STROKE: NO. Assessment & Plan - Diagnosis (1) Pneumonia Qualifiers: Pneumonia type: due to unspecified organism Laterality: left Lung location: lower lobe of lung Qualified Code(s): J18.1 - Lobar pneumonia, unspecified organism Is this a current diagnosis for this admission?: Yes Plan: Pneumonia care set, recent hospitalization, vancomycin and cefepime ordered. Follow-up CBC and blood culture (2) Altered mental status, unspecified Qualifiers: Altered mental status type: unspecified Qualified Code(s): R41.82 - Altered mental status, unspecified Is this a current diagnosis for this admission?: Yes Plan: Secondary to dementia with delirium or encephalopathy of acute illness (3) Hypokalemia Is this a current diagnosis for this admission?: Yes Plan: Repletion and reevaluation of chemistry (4) Hypoxia Is this a current diagnosis for this admission?: Yes Plan: Secondary to #1, supplemental oxygen - Time Time Spent: 50 to 70 Minutes - Inpatient Certification Medical Necessity: Need Close Monitoring Due to Risk of Patient Decompensation
[2018-01-20 06:14] LABS: HEMATOCRIT 34.1 % (36.0-47.0); HEMOGLOBIN 11.6 g/dL (12.0-15.5); MEAN CORPUSCULAR HEMOGLOBIN 31.8 pg (27.0-33.4); MEAN CORPUSCULAR VOLUME 94 fl (80-97); PLATELET COUNT 293 10^3/uL (150-450); RED BLOOD COUNT 3.64 10^6/uL (3.72-5.28); RED CELL DISTRIBUTION WIDTH 13.2 % (11.5-14.0); WHITE BLOOD COUNT 24.1 10^3/uL (4.0-10.5)
[2018-01-20 06:44] LABS: SEGMENTED NEUTROPHILS % (MAN) 71 % (42-78); TOTAL CELLS COUNTED 100
[2018-01-20 06:45] LABS: ABSOLUTE LYMPHOCYTES# (MANUAL) 0.2 10^3/uL (0.5-4.7); ABSOLUTE NEUTROPHILS# (MANUAL) 22.4 10^3/uL (1.7-8.2); BASOPHILS % (MANUAL) 0 % (0-2); EOSINOPHILS % (MANUAL) 2 % (0-6); LYMPHOCYTES % (MANUAL) 1 % (13-45); MONOCYTES % (MANUAL) 4 % (3-13)
[2018-01-20 06:48] LABS: PLATELET COMMENT ADEQUATE
[2018-01-20 06:51] LABS: RBC MORPHOLOGY COMMENT NORMO-CYTIC/CHROMIC
[2018-01-20 06:52] LABS: BAND NEUTROPHILS % (MANUAL) 22 % (3-5)
[2018-01-20] MEDS: IPRATROPIUM/ALBUTEROL 0.5-2.5 MG/3 ML AMPUL NEB SCH ×2 (08:10→16:04)
[2018-01-20] MEDS ORDERED: POTASSI CL 20 MEQ/1/2NS 1L 20 MEQ/1,000 ML RTUINJ IV ONE (08:38)
[2018-01-20] MEDS ORDERED: POTASSI CL 20 MEQ/1/2NS 1L 1000 ML IV ONE (09:00)
[2018-01-20] MEDS: IMIPRAMINE HCL 25 MG TABLET PO SCH ×2 (09:32→17:42)
[2018-01-20] MEDS: VALSARTAN 160 MG TABLET PO SCH (09:33)
[2018-01-20] MEDS: DOCUSATE SODIUM 100 MG CAPSULE PO SCH ×2 (09:33→17:42)
[2018-01-20] MEDS: ASPIRIN 325 MG TABLET PO SCH (09:33)
[2018-01-20] MEDS: METOPROLOL SUCCINATE 50 MG TAB.SR.24H PO SCH (09:34)
[2018-01-20] MEDS: CEFEPIME 2 GM/D5W RTU 2 GM/50 ML RTUPB IV SCH ×2 (09:36→17:42)
[2018-01-20 12:39] LABS: PATH REVIEW PATHOLOGIST REVIEWED
--- NOTE | 2018-01-20 13:58 | PDOC PROGRESS REPORT ---
Subjective Progress Note for:: 01/20/18 Subjective:: Patient was recently discharged from the hospital on January 17 but will was readmitted with left lower lobe pneumonia. She apparently had been doing well when she was discharged. Patient is back to her confused state that she was when she was first admitted last week. She was found to have white count of 24, 000 whereas was 12.5 on discharge Reason For Visit: DEMENTIA PNEUMONIA Physical Exam Vital Signs: Temp Pulse Resp BP Pulse Ox 100.1 F 91 22 H 148/56 H 94 01/20/18 07:39 01/20/18 08:11 01/20/18 08:11 01/20/18 07:39 01/20/18 12:11 Pulse Oximeter Continuous Start: 01/19/18 21: 37 Freq: RTQ4 Status: Active Document 01/20/18 12:11 [facility] [place] (Rec: 01/20/18 12:13 [facility] [place] [email or web address]) Pulse Oximetry Assessment Oxygen Saturation (92-100) 94 Oxygen Flow Rate (L/min) 2.5 Oxygen Delivery Method Nasal Cannula Fraction of Inspired Oxygen (FIO2) 30 Equipment Usage Equipment in Use Continuous SpO2 Machine # N 7 Intake & Output 01/19/18 01/20/18 01/21/18 06:59 06:59 06:59 Weight 61.1 kg General appearance: PRESENT: no acute distress Head exam: PRESENT: atraumatic Respiratory exam: PRESENT: crackles, decreased breath sounds, rales - Left lung , unlabored. ABSENT: wheezes Cardiovascular exam: PRESENT: RRR. ABSENT: diastolic murmur, rubs, systolic murmur Pulses: PRESENT: normal dorsalis pedis pul GI/Abdominal exam: PRESENT: normal bowel sounds, soft. ABSENT: distended, guarding, mass, organolmegaly, rebound, tenderness Neurological exam: PRESENT: alert, awake, other - Confused Psychiatric exam: PRESENT: flat affect Skin exam: PRESENT: dry, intact, warm. ABSENT: cyanosis, rash Results Laboratory Results: 01/20/18 05:02 01/20/18 05:02 01/20/18 01/20/18 05:02 05:02 WBC 24.1 H RBC 3.64 L Hgb 11.6 L Hct 34.1 L MCV 94 MCH 31.8 MCHC 34.0 RDW 13.2 Plt Count 293 Seg Neutrophils % Not Reportable Lymphocytes % Not Reportable Monocytes % Not Reportable Eosinophils % Not Reportable Basophils % Not Reportable Absolute Neutrophils Not Reportable Absolute Lymphocytes Not Reportable Absolute Monocytes Not Reportable Absolute Eosinophils Not Reportable Absolute Basophils Not Reportable Sodium 139.8 Potassium 3.7 Chloride 100 Carbon Dioxide 26 Anion Gap 14 BUN 19 Creatinine 0.83 Est GFR ( Amer) > 60 Est GFR (Non-Af Amer) > 60 Glucose 208 H Calcium 8.1 L Impressions: Chest X-Ray 01/19/18 19:10 IMPRESSION: Left lower lobe pneumonia. Head CT 01/19/18 19:10 IMPRESSION: CHRONIC MICROVASCULAR ISCHEMIA. NO ACUTE IMAGING FINDINGS IN THE BRAIN. EVIDENCE OF ACUTE STROKE: NO. Assessment & Plan - Diagnosis (1) Pneumonia Qualifiers: Pneumonia type: due to unspecified organism Laterality: left Lung location: lower lobe of lung Qualified Code(s): J18.1 - Lobar pneumonia, unspecified organism Is this a current diagnosis for this admission?: Yes Plan: Healthcare associated. Considering that the patient was seen here for the last week or so and she actually was thought to have an infection but will wait never really able to pinpoint it and she was treated with Levaquin but still came back within 24 hours with a full-blown pneumonia she is appropriately on vancomycin. (2) Hypokalemia Is this a current diagnosis for this admission?: Yes (3) Coronary artery disease Qualifiers: Coronary Disease-Associated Artery/Lesion type: [place] artery Associated angina: without angina Is this a current diagnosis for this admission?: Yes (4) Acute hypoxemic respiratory failure Is this a current diagnosis for this admission?: Yes Plan: Secondary to pneumonia we will continue with oxygen support and wean off as clinically indicated (5) Sepsis Qualifiers: Sepsis type: sepsis due to unspecified organism Qualified Code(s): A41.9 - Sepsis, unspecified organism Is this a current diagnosis for this admission?: Yes Plan: Secondary to pneumonia. Patient was tachypneic, febrile, hypoxemic and with a source infection of left lung infiltrates on presentation (6) Hypertensive urgency Is this a current diagnosis for this admission?: Yes Plan: Her systolic blood pressure was also elevated at this time around at 189 on admission. She had the same issues just last weeks too. We will continue to adjust her medications for optimal blood pressure control - Time Time Spent with patient: 15-24 minutes Medications reviewed and adjusted accordingly: Yes Anticipated discharge: Acute Rehab Within: within 72 hours - Inpatient Certification Based on my medical assessment, after consideration of the patient's comorbidities, presenting symptoms, or acuity I expect that the services needed warrant INPATIENT care.: Yes Medical Necessity: Need for IV Antibiotics, Risk of Complication if Not Cared For in Hospital
[2018-01-20] MEDS: VANCOMYCIN HCL 500 MG in NORMAL SALINE 100 ML IV SCH (14:51)
[2018-01-20] MEDS: ATORVASTATIN CALCIUM 80 MG TABLET PO SCH (21:49)
[2018-01-21] MEDS: IPRATROPIUM/ALBUTEROL 0.5-2.5 MG/3 ML AMPUL NEB SCH ×3 (00:01→15:58)
[2018-01-21] MEDS: VANCOMYCIN HCL 500 MG in NORMAL SALINE 100 ML IV SCH ×2 (02:34→15:07)
[2018-01-21] MEDS: CEFEPIME 2 GM/D5W RTU 2 GM/50 ML RTUPB IV SCH ×2 (06:01→18:03)
[2018-01-21] MEDS: HEPARIN SOD (PORCINE) 5,000 UNIT/ML 1 ML SYRINGE SUBCUT SCH ×3 (06:05→21:17)
[2018-01-21 09:12] LABS: ABSOLUTE EOSINOPHILS # (AUTO) 0.8 10^3/uL (0.0-0.6); ABSOLUTE LYMPHOCYTES (AUTO) 1.3 10^3/uL (0.5-4.7); ABSOLUTE NEUT (AUTO) 15.1 10^3/uL (1.7-8.2); BASOPHILS % (AUTO) 0.2 % (0-2); EOSINOPHILS % (AUTO) 4.6 % (0-6); HEMOGLOBIN 10.2 g/dL (12.0-15.5); LYMPHOCYTES % (AUTO) 7.3 % (13-45); MEAN CORPUSCULAR HEMOGLOBIN 32.1 pg (27.0-33.4); MEAN CORPUSCULAR VOLUME 95 fl (80-97); MONOCYTES % (AUTO) 5.4 % (3-13); PLATELET COUNT 303 10^3/uL (150-450); RED BLOOD COUNT 3.17 10^6/uL (3.72-5.28); RED CELL DISTRIBUTION WIDTH 13.4 % (11.5-14.0); SEGMENTED NEUTROPHILS % (AUTO) 82.5 % (42-78); TOTAL CELLS COUNTED % (AUTO) 100 %; WHITE BLOOD COUNT 18.3 10^3/uL (4.0-10.5)
[2018-01-21] MEDS: IMIPRAMINE HCL 25 MG TABLET PO SCH ×2 (09:35→17:33)
[2018-01-21] MEDS: VALSARTAN 160 MG TABLET PO SCH (09:36)
[2018-01-21] MEDS: METOPROLOL SUCCINATE 50 MG TAB.SR.24H PO SCH (09:36)
[2018-01-21] MEDS: ASPIRIN 325 MG TABLET PO SCH (09:36)
[2018-01-21] MEDS: DOCUSATE SODIUM 100 MG CAPSULE PO SCH ×2 (09:36→17:33)
[2018-01-21] MEDS: FLUTICASONE NASAL SPRAY 50 MCG/SPRY 120 SPRAY/16 GM NASL SCH ×2 (09:37→21:17)
[2018-01-21 09:38] LABS: ANION GAP 7 (5-19); BLOOD UREA NITROGEN 19 mg/dL (7-20); CARBON DIOXIDE 29 mmol/L (22-30); CHLORIDE 102 mmol/L (98-107); GLUCOSE 122 mg/dL (75-110); SODIUM 137.9 mmol/L (137-145)
[2018-01-21 09:41] LABS: POTASSIUM 2.9 mmol/L (3.6-5.0)
[2018-01-21] MEDS: POTASSIUM CHLORIDE 20 MEQ/50 ML RTU IV SCH ×2 (10:58→15:07)
[2018-01-21] MEDS: INSULIN LISPRO 100 UNIT/ML 3 ML VIAL SUBCUT PRN (11:28)
--- NOTE | 2018-01-21 16:18 | PDOC PROGRESS REPORT ---
Subjective Progress Note for:: 01/21/18 Subjective:: Patient was recently discharged from the hospital on January 17 but will was readmitted with left lower lobe pneumonia. She apparently had been doing well when she was discharged. Patient is somewhat improved as she appears to be more interactive today saying a few more words than she did yesterday Reason For Visit: DEMENTIA PNEUMONIA Physical Exam Vital Signs: Temp Pulse Resp BP Pulse Ox 98.1 F 79 14 140/87 H 95 01/21/18 11:40 01/21/18 14:00 01/21/18 11:40 01/21/18 11:40 01/21/18 12:00 Pulse Oximeter Continuous Start: 01/19/18 21: 37 Freq: RTQ4 Status: Active Document 01/21/18 12:00 [facility] (Rec: 01/21/18 14:47 [facility] [email or web address]) Pulse Oximetry Assessment Oxygen Saturation (92-100) 95 Oxygen Flow Rate (L/min) 2 Oxygen Delivery Method Nasal Cannula Equipment Usage Equipment in Use Continuous SpO2 Machine # N7 Intake & Output 01/20/18 01/21/18 01/22/18 06:59 06:59 06:59 Intake Total 1100 Balance 1100 Weight 61.1 kg 61.4 kg General appearance: PRESENT: no acute distress Head exam: PRESENT: atraumatic Mouth exam: PRESENT: dry mucosa Neck exam: PRESENT: carotid bruit Respiratory exam: PRESENT: clear to auscultation imelda. ABSENT: rales, rhonchi, wheezes GI/Abdominal exam: PRESENT: normal bowel sounds, soft. ABSENT: distended, guarding, mass, organolmegaly, rebound, tenderness Rectal exam: PRESENT: deferred Neurological exam: PRESENT: alert, awake. ABSENT: oriented to time, oriented to situation, CN II-XII grossly intact Psychiatric exam: PRESENT: flat affect Results Laboratory Results: 01/21/18 09:03 01/21/18 09:03 01/21/18 01/21/18 09:03 09:03 WBC 18.3 H RBC 3.17 L Hgb 10.2 L Hct 30.0 L MCV 95 MCH 32.1 MCHC 34.0 RDW 13.4 Plt Count 303 Seg Neutrophils % 82.5 H Lymphocytes % 7.3 L Monocytes % 5.4 Eosinophils % 4.6 Basophils % 0.2 Absolute Neutrophils 15.1 H Absolute Lymphocytes 1.3 Absolute Monocytes 1.0 Absolute Eosinophils 0.8 H Absolute Basophils 0.0 Sodium 137.9 Potassium 2.9 L* Chloride 102 Carbon Dioxide 29 Anion Gap 7 BUN 19 Creatinine 0.69 Est GFR ( Amer) > 60 Est GFR (Non-Af Amer) > 60 Glucose 122 H Calcium 8.0 L Impressions: Chest X-Ray 01/19/18 19:10 IMPRESSION: Left lower lobe pneumonia. Head CT 01/19/18 19:10 IMPRESSION: CHRONIC MICROVASCULAR ISCHEMIA. NO ACUTE IMAGING FINDINGS IN THE BRAIN. EVIDENCE OF ACUTE STROKE: NO. Assessment & Plan - Diagnosis (1) Pneumonia Qualifiers: Pneumonia type: due to unspecified organism Laterality: left Lung location: lower lobe of lung Qualified Code(s): J18.1 - Lobar pneumonia, unspecified organism Is this a current diagnosis for this admission?: Yes Plan: Healthcare associated. Will continue vancomycin as well as cefepime and de- escalate as appropriate (2) Hypokalemia Is this a current diagnosis for this admission?: Yes Plan: Replace will also check magnesium levels (3) Coronary artery disease Qualifiers: Coronary Disease-Associated Artery/Lesion type: [place] artery Associated angina: without angina Is this a current diagnosis for this admission?: Yes (4) Acute hypoxemic respiratory failure Is this a current diagnosis for this admission?: Yes Plan: Secondary to acute pneumonitis wean off oxygen as tolerated (5) Sepsis Qualifiers: Sepsis type: sepsis due to unspecified organism Qualified Code(s): A41.9 - Sepsis, unspecified organism Is this a current diagnosis for this admission?: Yes Plan: Continue current management (6) Hypertensive urgency Is this a current diagnosis for this admission?: Yes Plan: Improved - Time Time Spent with patient: 15-24 minutes Medications reviewed and adjusted accordingly: Yes Anticipated discharge: Acute Rehab Within: within 72 hours - Inpatient Certification Based on my medical assessment, after consideration of the patient's comorbidities, presenting symptoms, or acuity I expect that the services needed warrant INPATIENT care.: Yes Medical Necessity: Need For IV Fluids, Need for IV Antibiotics
[2018-01-21] MEDS: ATORVASTATIN CALCIUM 80 MG TABLET PO SCH (21:17)
[2018-01-22] MEDS: IPRATROPIUM/ALBUTEROL 0.5-2.5 MG/3 ML AMPUL NEB SCH ×3 (00:39→15:45)
[2018-01-22] MEDS: VANCOMYCIN HCL 500 MG in NORMAL SALINE 100 ML IV SCH ×2 (03:16→14:57)
[2018-01-22] MEDS: HYDRALAZINE HCL INJ/PF 20 MG/1 ML SDV IV PRN ×2 (05:04→21:39)
[2018-01-22] MEDS: CEFEPIME 2 GM/D5W RTU 2 GM/50 ML RTUPB IV SCH ×2 (05:05→18:17)
[2018-01-22] MEDS: HEPARIN SOD (PORCINE) 5,000 UNIT/ML 1 ML SYRINGE SUBCUT SCH ×3 (05:05→23:38)
[2018-01-22 06:50] LABS: HEMATOCRIT 28.6 % (36.0-47.0); HEMOGLOBIN 9.9 g/dL (12.0-15.5); MEAN CORPUSCULAR HEMOGLOBIN 32.4 pg (27.0-33.4); MEAN CORPUSCULAR HGB CONC 34.5 g/dL (32.0-36.0); MEAN CORPUSCULAR VOLUME 94 fl (80-97); PLATELET COUNT 314 10^3/uL (150-450); RED BLOOD COUNT 3.05 10^6/uL (3.72-5.28); RED CELL DISTRIBUTION WIDTH 13.5 % (11.5-14.0); WHITE BLOOD COUNT 12.5 10^3/uL (4.0-10.5)
[2018-01-22 07:03] LABS: ANION GAP 11 (5-19); BLOOD UREA NITROGEN 13 mg/dL (7-20); CALCIUM 8.3 mg/dL (8.4-10.2); CARBON DIOXIDE 25 mmol/L (22-30); CHLORIDE 106 mmol/L (98-107); GLUCOSE 144 mg/dL (75-110); POTASSIUM 3.1 mmol/L (3.6-5.0); SODIUM 141.7 mmol/L (137-145)
[2018-01-22 08:32] LABS: ABSOLUTE LYMPHOCYTES# (MANUAL) 1.4 10^3/uL (0.5-4.7); ABSOLUTE MONOCYTES # (MANUAL) 0.6 10^3/uL (0.1-1.4); ABSOLUTE NEUTROPHILS# (MANUAL) 9.9 10^3/uL (1.7-8.2); BASOPHILS % (MANUAL) 0 % (0-2); EOSINOPHILS % (MANUAL) 5 % (0-6); LYMPHOCYTES % (MANUAL) 11 % (13-45); MONOCYTES % (MANUAL) 5 % (3-13); SEGMENTED NEUTROPHILS % (MAN) 79 % (42-78); TOTAL CELLS COUNTED 100
[2018-01-22 08:33] LABS: PLATELET COMMENT ADEQUATE; RBC MORPHOLOGY COMMENT NORMO-CYTIC/CHROMIC
[2018-01-22] MEDS: IMIPRAMINE HCL 25 MG TABLET PO SCH ×2 (10:17→18:17)
[2018-01-22] MEDS: DOCUSATE SODIUM 100 MG CAPSULE PO SCH ×2 (10:17→18:17)
[2018-01-22] MEDS: ASPIRIN 325 MG TABLET PO SCH (10:18)
[2018-01-22] MEDS: VALSARTAN 160 MG TABLET PO SCH (10:18)
[2018-01-22] MEDS: METOPROLOL SUCCINATE 50 MG TAB.SR.24H PO SCH (10:18)
[2018-01-22] MEDS: FLUTICASONE NASAL SPRAY 50 MCG/SPRY 120 SPRAY/16 GM NASL SCH ×2 (10:19→23:38)
[2018-01-22] MEDS ORDERED: ACETAMINOPHEN 325 MG TABLET PO PRN (11:08)
--- NOTE | 2018-01-22 12:16 | PDOC PROGRESS REPORT ---
Subjective Progress Note for:: 01/22/18 Subjective:: Patient was recently discharged from the hospital on January 17 but will was readmitted with left lower lobe pneumonia. She apparently had been doing well when she was discharged. Patient continues to improve and she appears to be close to her baseline. She ate better today also Reason For Visit: DEMENTIA PNEUMONIA Physical Exam Vital Signs: Temp Pulse Resp BP Pulse Ox 98.1 F 88 16 172/67 H 95 01/22/18 07:24 01/22/18 07:51 01/22/18 07:51 01/22/18 07:24 01/22/18 07:51 Pulse Oximeter Continuous Start: 01/19/18 21: 37 Freq: RTQ4 Status: Complete Document 01/22/18 00:00 [facility] (Rec: 01/22/18 00:59 [facility] [email or web address]) Pulse Oximetry Assessment Oxygen Saturation (92-100) 98 Oxygen Flow Rate (L/min) 2 Oxygen Delivery Method Nasal Cannula Equipment Usage Equipment in Use Continuous Pulse Oximeter 24 Hour Charge Charge Now Continuous SpO2 Machine # 7 Intake & Output 01/21/18 01/22/18 01/23/18 06:59 06:59 06:59 Intake Total 1100 977 Output Total 300 Balance 1100 677 Weight 61.4 kg 62.4 kg General appearance: PRESENT: no acute distress Head exam: PRESENT: atraumatic Mouth exam: PRESENT: dry mucosa Respiratory exam: PRESENT: decreased breath sounds, rhonchi, symmetrical Cardiovascular exam: PRESENT: RRR, +S1, +S2. ABSENT: diastolic murmur, rubs, systolic murmur GI/Abdominal exam: PRESENT: normal bowel sounds, soft. ABSENT: distended, guarding, mass, organolmegaly, rebound, tenderness Rectal exam: PRESENT: deferred Extremities exam: PRESENT: full ROM. ABSENT: calf tenderness, clubbing, pedal edema Neurological exam: PRESENT: alert, awake, oriented to person, oriented to place , oriented to situation, CN II-XII grossly intact Psychiatric exam: PRESENT: unusual affect Results Laboratory Results: 01/22/18 06:20 01/22/18 06:20 01/22/18 01/22/18 06:20 06:20 WBC 12.5 H RBC 3.05 L Hgb 9.9 L Hct 28.6 L MCV 94 MCH 32.4 MCHC 34.5 RDW 13.5 Plt Count 314 Seg Neutrophils % Not Reportable Lymphocytes % Not Reportable Monocytes % Not Reportable Eosinophils % Not Reportable Basophils % Not Reportable Absolute Neutrophils Not Reportable Absolute Lymphocytes Not Reportable Absolute Monocytes Not Reportable Absolute Eosinophils Not Reportable Absolute Basophils Not Reportable Sodium 141.7 Potassium 3.1 L Chloride 106 Carbon Dioxide 25 Anion Gap 11 BUN 13 Creatinine 0.56 Est GFR ( Amer) > 60 Est GFR (Non-Af Amer) > 60 Glucose 144 H Calcium 8.3 L Magnesium 2.0 Impressions: Chest X-Ray 01/19/18 19:10 IMPRESSION: Left lower lobe pneumonia. Head CT 01/19/18 19:10 IMPRESSION: CHRONIC MICROVASCULAR ISCHEMIA. NO ACUTE IMAGING FINDINGS IN THE BRAIN. EVIDENCE OF ACUTE STROKE: NO. Assessment & Plan - Diagnosis (1) Pneumonia Qualifiers: Pneumonia type: due to unspecified organism Laterality: left Lung location: lower lobe of lung Qualified Code(s): J18.1 - Lobar pneumonia, unspecified organism Is this a current diagnosis for this admission?: Yes Plan: Due for on vancomycin and cefepime. Will continue with these through a discharge. She can be switched to oral antibiotic although preferably not Levaquin at discharge (2) Hypokalemia Is this a current diagnosis for this admission?: Yes Plan: Not really sure why she remains hypokalemic but will continue to replace as indicated (3) Coronary artery disease Qualifiers: Coronary Disease-Associated Artery/Lesion type: [place] artery Associated angina: without angina Is this a current diagnosis for this admission?: Yes (4) Acute hypoxemic respiratory failure Is this a current diagnosis for this admission?: Yes Plan: Secondary to pneumonia. Resolved (5) Sepsis Qualifiers: Sepsis type: sepsis due to unspecified organism Qualified Code(s): A41.9 - Sepsis, unspecified organism Is this a current diagnosis for this admission?: Yes Plan: Resolved (6) Hypertensive urgency Is this a current diagnosis for this admission?: Yes Plan: Continue to adjust antihypertensives as needed - Time Time Spent with patient: 15-24 minutes Medications reviewed and adjusted accordingly: Yes Anticipated discharge: SNF Within: within 48 hours - Inpatient Certification Based on my medical assessment, after consideration of the patient's comorbidities, presenting symptoms, or acuity I expect that the services needed warrant INPATIENT care.: Yes Medical Necessity: Need for IV Antibiotics
[2018-01-22] MEDS: POTASSIUM CHLORIDE 10 MEQ CAPSULE.ER PO SCH (12:40)
[2018-01-22] MEDS: INSULIN LISPRO 100 UNIT/ML 3 ML VIAL SUBCUT PRN (12:49)
[2018-01-22 15:26] LABS: VANCOMYCIN,TROUGH 8.4 ug/mL (5.0-20.0)
[2018-01-22] MEDS ORDERED: METOPROLOL TARTRATE PF/INJ 5 MG/5 ML SDV IV ONE ×2 (20:30→20:31)
[2018-01-22] MEDS ORDERED: HYDRALAZINE HCL 50 MG TABLET PO ONE (23:30)
[2018-01-22] MEDS: ATORVASTATIN CALCIUM 80 MG TABLET PO SCH (23:38)
[2018-01-23] MEDS: IPRATROPIUM/ALBUTEROL 0.5-2.5 MG/3 ML AMPUL NEB SCH ×3 (00:20→15:57)
[2018-01-23] MEDS: VANCOMYCIN HCL 1,000 MG in DEXTROSE 5%-WATER 250 ML IV SCH ×2 (03:55→15:19)
[2018-01-23] MEDS: CEFEPIME 2 GM/D5W RTU 2 GM/50 ML RTUPB IV SCH ×2 (05:48→17:17)
[2018-01-23] MEDS: HEPARIN SOD (PORCINE) 5,000 UNIT/ML 1 ML SYRINGE SUBCUT SCH ×3 (05:48→21:18)
[2018-01-23] MEDS: VALSARTAN 160 MG TABLET PO SCH (08:30)
[2018-01-23] MEDS: ASPIRIN 325 MG TABLET PO SCH (08:30)
[2018-01-23] MEDS: DOCUSATE SODIUM 100 MG CAPSULE PO SCH ×2 (08:30→17:17)
[2018-01-23] MEDS: METOPROLOL SUCCINATE 50 MG TAB.SR.24H PO SCH (08:31)
[2018-01-23] MEDS: IMIPRAMINE HCL 25 MG TABLET PO SCH ×2 (08:35→17:17)
[2018-01-23] MEDS: FLUTICASONE NASAL SPRAY 50 MCG/SPRY 120 SPRAY/16 GM NASL SCH ×2 (08:35→21:18)
[2018-01-23] MEDS: AMLODIPINE BESYLATE 5 MG TABLET PO SCH (08:36)
[2018-01-23] MEDS: HYDRALAZINE HCL INJ/PF 20 MG/1 ML SDV IV PRN (08:37)
[2018-01-23] MEDS: POTASSIUM CHLORIDE 10 MEQ CAPSULE.ER PO SCH (13:28)
--- NOTE | 2018-01-23 16:16 | PDOC PROGRESS REPORT ---
Subjective Progress Note for:: 01/23/18 Subjective:: Patient was recently discharged from the hospital on January 17 but will was readmitted with left lower lobe pneumonia. She apparently had been doing well when she was discharged. Patient continues to improve and she appears to be close to her baseline. Denies any new complaints Reason For Visit: DEMENTIA PNEUMONIA Physical Exam Vital Signs: Temp Pulse Resp BP Pulse Ox 98.6 F 86 16 148/59 H 96 01/23/18 11:02 01/23/18 15:58 01/23/18 15:58 01/23/18 11:02 01/23/18 15:58 Pulse Oximeter Continuous Start: 01/19/18 21: 37 Freq: RTQ4 Status: Complete Document 01/22/18 00:00 [facility] (Rec: 01/22/18 00:59 [facility] [email or web address]) Pulse Oximetry Assessment Oxygen Saturation (92-100) 98 Oxygen Flow Rate (L/min) 2 Oxygen Delivery Method Nasal Cannula Equipment Usage Equipment in Use Continuous Pulse Oximeter 24 Hour Charge Charge Now Continuous SpO2 Machine # 7 Intake & Output 01/22/18 01/23/18 01/24/18 06:59 06:59 06:59 Intake Total 977 817 Output Total 300 Balance 677 817 Weight 62.4 kg 64.4 kg General appearance: PRESENT: no acute distress Head exam: PRESENT: atraumatic Ear exam: PRESENT: normal external ear exam Respiratory exam: PRESENT: clear to auscultation imelda. ABSENT: rales, rhonchi, wheezes Cardiovascular exam: PRESENT: RRR. ABSENT: diastolic murmur, rubs, systolic murmur Rectal exam: PRESENT: deferred Extremities exam: PRESENT: full ROM. ABSENT: calf tenderness, clubbing, pedal edema Neurological exam: PRESENT: alert, awake, oriented to person, oriented to place , oriented to situation, CN II-XII grossly intact Psychiatric exam: PRESENT: appropriate affect, normal mood, unusual affect. ABSENT: homicidal ideation Results Laboratory Results: 01/22/18 06:20 01/22/18 06:20 Impressions: Chest X-Ray 01/19/18 19:10 IMPRESSION: Left lower lobe pneumonia. Head CT 01/19/18 19:10 IMPRESSION: CHRONIC MICROVASCULAR ISCHEMIA. NO ACUTE IMAGING FINDINGS IN THE BRAIN. EVIDENCE OF ACUTE STROKE: NO. Assessment & Plan - Diagnosis (1) Pneumonia Qualifiers: Pneumonia type: due to unspecified organism Laterality: left Lung location: lower lobe of lung Qualified Code(s): J18.1 - Lobar pneumonia, unspecified organism Is this a current diagnosis for this admission?: Yes Plan: Patient continues to improve. She is still on vancomycin day 5. This can be discontinued prior to discharge hopefully tomorrow. (2) Hypokalemia Is this a current diagnosis for this admission?: Yes Plan: Check labs in a.m. (3) Coronary artery disease Qualifiers: Coronary Disease-Associated Artery/Lesion type: [place] artery Associated angina: without angina Is this a current diagnosis for this admission?: Yes Plan: Chronic stable (4) Acute hypoxemic respiratory failure Is this a current diagnosis for this admission?: Yes Plan: Secondary to pneumonia resolved she is off oxygen (5) Sepsis Qualifiers: Sepsis type: sepsis due to unspecified organism Qualified Code(s): A41.9 - Sepsis, unspecified organism Is this a current diagnosis for this admission?: Yes Plan: Resolved (6) Hypertensive urgency Is this a current diagnosis for this admission?: Yes Plan: Amlodipine added to her regimen as her blood pressure was still poorly controlled. Will continue to adjust as needed - Time Time Spent with patient: 15-24 minutes Medications reviewed and adjusted accordingly: Yes Anticipated discharge: SNF Within: within 48 hours - Inpatient Certification Based on my medical assessment, after consideration of the patient's comorbidities, presenting symptoms, or acuity I expect that the services needed warrant INPATIENT care.: Yes Medical Necessity: Need for IV Antibiotics
[2018-01-23] MEDS: ATORVASTATIN CALCIUM 80 MG TABLET PO SCH (21:18)
[2018-01-24] MEDS: IPRATROPIUM/ALBUTEROL 0.5-2.5 MG/3 ML AMPUL NEB SCH ×3 (00:15→16:20)
[2018-01-24] MEDS: VANCOMYCIN HCL 1,000 MG in DEXTROSE 5%-WATER 250 ML IV SCH (03:42)
[2018-01-24] MEDS: HEPARIN SOD (PORCINE) 5,000 UNIT/ML 1 ML SYRINGE SUBCUT SCH ×2 (05:20→13:30)
[2018-01-24] MEDS: CEFEPIME 2 GM/D5W RTU 2 GM/50 ML RTUPB IV SCH (05:20)
[2018-01-24] MEDS: HYDRALAZINE HCL INJ/PF 20 MG/1 ML SDV IV PRN (05:20)
[2018-01-24 06:30] LABS: HEMATOCRIT 31.6 % (36.0-47.0); HEMOGLOBIN 10.9 g/dL (12.0-15.5); MEAN CORPUSCULAR HEMOGLOBIN 32.4 pg (27.0-33.4); MEAN CORPUSCULAR HGB CONC 34.6 g/dL (32.0-36.0); MEAN CORPUSCULAR VOLUME 94 fl (80-97); PLATELET COUNT 356 10^3/uL (150-450); RED BLOOD COUNT 3.37 10^6/uL (3.72-5.28); RED CELL DISTRIBUTION WIDTH 13.3 % (11.5-14.0); WHITE BLOOD COUNT 10.3 10^3/uL (4.0-10.5)
[2018-01-24 06:55] LABS: ANION GAP 13 (5-19); BLOOD UREA NITROGEN 8 mg/dL (7-20); CALCIUM 9.1 mg/dL (8.4-10.2); CARBON DIOXIDE 26 mmol/L (22-30); CHLORIDE 100 mmol/L (98-107); GLUCOSE 199 mg/dL (75-110); POTASSIUM 3.8 mmol/L (3.6-5.0)
[2018-01-24 07:06] LABS: ABSOLUTE NEUTROPHILS# (MANUAL) 7.7 10^3/uL (1.7-8.2); BAND NEUTROPHILS % (MANUAL) 3 % (3-5); BASOPHILS % (MANUAL) 0 % (0-2); EOSINOPHILS % (MANUAL) 5 % (0-6); LYMPHOCYTES % (MANUAL) 10 % (13-45); METAMYELOCYTES % (MANUAL) 3 % (0); MONOCYTES % (MANUAL) 10 % (3-13); SEGMENTED NEUTROPHILS % (MAN) 66 % (42-78); TOTAL CELLS COUNTED 100
[2018-01-24 07:08] LABS: HYPOCHROMASIA 1+; PLATELET COMMENT ADEQUATE; POLYCHROMASIA SLIGHT
[2018-01-24 07:10] LABS: MYELOCYTES % (MANUAL) 3 % (0)
[2018-01-24 07:40] VITALS: BP 186/75
[2018-01-24] MEDS: IMIPRAMINE HCL 25 MG TABLET PO SCH (07:59)
[2018-01-24] MEDS: METOPROLOL SUCCINATE 50 MG TAB.SR.24H PO SCH (08:00)
[2018-01-24] MEDS: ASPIRIN 325 MG TABLET PO SCH (08:00)
[2018-01-24] MEDS: VALSARTAN 160 MG TABLET PO SCH (08:00)
[2018-01-24] MEDS: DOCUSATE SODIUM 100 MG CAPSULE PO SCH (08:00)
[2018-01-24] MEDS: AMLODIPINE BESYLATE 5 MG TABLET PO SCH (08:00)
[2018-01-24] MEDS ORDERED: HYDRALAZINE HCL INJ/PF 20 MG/1 ML SDV IV PRN (08:01)
[2018-01-24] MEDS: INSULIN LISPRO 100 UNIT/ML 3 ML VIAL SUBCUT PRN (08:01)
[2018-01-24] MEDS: FLUTICASONE NASAL SPRAY 50 MCG/SPRY 120 SPRAY/16 GM NASL SCH (08:01)
[2018-01-24] MEDS ORDERED: AMLODIPINE BESYLATE 5 MG TABLET PO SCH (10:00)
--- NOTE | 2018-01-24 11:02 | PDOC DISCHARGE SUMMARY ---
General - Admit/Disc Date/PCP Admission Date/Primary Care Provider: 01/19/18 21:53 DONOVAN VELEZ MD Discharge Date: 01/24/18 - Discharge Diagnosis (1) Pneumonia Is this a current diagnosis for this admission?: Yes (2) Hypokalemia Is this a current diagnosis for this admission?: Yes (3) Coronary artery disease Is this a current diagnosis for this admission?: Yes (4) Acute hypoxemic respiratory failure Is this a current diagnosis for this admission?: Yes (5) Sepsis Is this a current diagnosis for this admission?: Yes (6) Hypertensive urgency Is this a current diagnosis for this admission?: Yes - Additional Information Resuscitation Status: Full Code Discharge Activity: Activity As Tolerated Prescriptions: Cefpodoxime Proxetil [Vantin 100 mg Tablet] 1 tab PO Q12 #10 tab Home Medications: Atorvastatin Calcium [Lipitor 80 mg Tablet] 80 mg PO QHS 01/20/18 Imipramine HCl [Tofranil 25 mg Tablet] 25 mg PO QPM 01/20/18 Imipramine HCl [Tofranil 25 mg Tablet] 50 mg PO QAM 01/20/18 Lansoprazole [Prevacid] 30 mg PO Q6AM 01/20/18 Metformin HCl [Metformin HCl ER] 500 mg PO DAILY 01/20/18 Metoprolol Succinate [Toprol XL 100 mg Tablet] 100 mg PO DAILY 01/20/18 Valsartan [Diovan] 320 mg PO DAILY 01/20/18 Amlodipine Besylate [Norvasc 5 mg Tablet] 10 mg PO DAILY tablet 01/24/18 Aspirin [Aspirin 325 mg Tablet] 325 mg PO DAILY tablet 01/24/18 Cefpodoxime Proxetil [Vantin 100 mg Tablet] 1 tab PO Q12 #10 tab 01/24/18 Docusate Sodium [Colace 100 mg Capsule] 100 mg PO BID capsule 01/24/18 Fluticasone Propionate [Flonase Nasal [place] 50 Mcg/[place] 16 gm] 2 spray NASL Q12 spray.pump 01/24/18 Ipratropium/Albuterol Sulfate [Duoneb 3 ml Ampul] 3 ml NEB RTQ8 vial.neb History of Present Illness History of Present Illness: CARO COKER is a 72 year old female with a past medical history of dementia, coronary artery disease, CVA and falls. She is a long-term [facility] resident who was discharged 24 hours ago following an admission for altered mental status and systemic inflammatory response syndrome. No source was identified. She returns after [facility] staff find her tachypneic with altered mental status. She is brought to the emergency room for evaluation is found to have fever tachypnea hypoxia and a left lower lobe infiltrate. The patient is unable to elaborate secondary to underlying dementia and delirium. Hospital Course Hospital Course: Patient was admitted about 24 hours following an initial discharge. She was found to be septic with pneumonia. Patient was started on vancomycin due to concerns about healthcare associated pneumonia. She has received this for a total of 5 days in addition to cefepime. Patient has improved with resolution of her acute respiratory failure thought to be secondary to pneumonia. He has remained afebrile and has sepsis has resolved. She appears to be back at her baseline mental status and so she has been discharged back to [facility] for physical therapy. She required multiple doses of potassium replacement and I will suggest follow- up with a potassium as outpatient. Her blood pressure was also poorly controlled and her medications were adjusted. She is advised to follow-up with her primary care physician for further evaluation and adjustment of blood pressure. Patient has remained hemodynamically stable and appears to be back at her baseline mental status and so she is been discharged to [facility] on oral antibiotics Physical Exam Vital Signs: Temp Pulse Resp BP Pulse Ox 97.9 F 88 16 186/75 H 92 01/24/18 07:32 01/24/18 08:33 01/24/18 08:33 01/24/18 07:32 01/24/18 08:33 Pulse Oximeter Continuous Start: 01/19/18 21: 37 Freq: RTQ4 Status: Complete Document 01/22/18 00:00 [facility] (Rec: 01/22/18 00:59 [facility] [email or web address]) Pulse Oximetry Assessment Oxygen Saturation (92-100) 98 Oxygen Flow Rate (L/min) 2 Oxygen Delivery Method Nasal Cannula Equipment Usage Equipment in Use Continuous Pulse Oximeter 24 Hour Charge Charge Now Continuous SpO2 Machine # 7 Intake & Output 01/23/18 01/24/18 01/25/18 06:59 06:59 06:59 Intake Total 817 1290 Balance 817 1290 Weight 64.4 kg 63.3 kg General appearance: PRESENT: no acute distress Head exam: PRESENT: atraumatic, normocephalic Eye exam: PRESENT: conjunctiva pink, EOMI, PERRLA. ABSENT: scleral icterus Ear exam: PRESENT: normal external ear exam Mouth exam: PRESENT: moist, tongue midline Neck exam: ABSENT: carotid bruit, JVD, lymphadenopathy, thyromegaly Respiratory exam: PRESENT: rhonchi - Scattered. ABSENT: rales, wheezes Cardiovascular exam: PRESENT: RRR. ABSENT: diastolic murmur, rubs, systolic murmur Pulses: PRESENT: normal dorsalis pedis pul Vascular exam: PRESENT: normal capillary refill GI/Abdominal exam: PRESENT: normal bowel sounds, soft. ABSENT: distended, guarding, mass, organolmegaly, rebound, tenderness Rectal exam: PRESENT: deferred Extremities exam: PRESENT: full ROM. ABSENT: calf tenderness, clubbing, pedal edema Neurological exam: PRESENT: alert, awake, oriented to situation, CN II-XII grossly intact. ABSENT: motor sensory deficit Psychiatric exam: PRESENT: normal mood, unusual affect. ABSENT: homicidal ideation, suicidal ideation Skin exam: PRESENT: dry, intact, warm. ABSENT: cyanosis, rash Results Laboratory Results: 01/24/18 06:07 01/24/18 06:07 01/24/18 01/24/18 06:07 06:07 WBC 10.3 RBC 3.37 L Hgb 10.9 L Hct 31.6 L MCV 94 MCH 32.4 MCHC 34.6 RDW 13.3 Plt Count 356 Seg Neutrophils % Not Reportable Lymphocytes % Not Reportable Monocytes % Not Reportable Eosinophils % Not Reportable Basophils % Not Reportable Absolute Neutrophils Not Reportable Absolute Lymphocytes Not Reportable Absolute Monocytes Not Reportable Absolute Eosinophils Not Reportable Absolute Basophils Not Reportable Sodium 139.0 Potassium 3.8 Chloride 100 Carbon Dioxide 26 Anion Gap 13 BUN 8 Creatinine 0.56 Est GFR ( Amer) > 60 Est GFR (Non-Af Amer) > 60 Glucose 199 H Calcium 9.1 Impressions: Chest X-Ray 01/19/18 19:10 IMPRESSION: Left lower lobe pneumonia. Head CT 01/19/18 19:10 IMPRESSION: CHRONIC MICROVASCULAR ISCHEMIA. NO ACUTE IMAGING FINDINGS IN THE BRAIN. EVIDENCE OF ACUTE STROKE: NO. Qualifiers - * PATIENT BEING DISCHARGED WITH ANY OF THE FOLLOWING DIAGNOSIS: No Plan Time Spent: Greater than 30 Minutes
[2018-01-24] MEDS ORDERED: HYDROCODONE BIT/HOMATROPINE 5-1.5 MG TABLET PO PRN (11:23)
[2018-01-24] MEDS: POTASSIUM CHLORIDE 10 MEQ CAPSULE.ER PO SCH (13:31)
[2018-01-24 14:58] LABS: PATH REVIEW PATHOLOGIST REVIEWED
[2018-01-25] MEDS ORDERED: AMLODIPINE BESYLATE 10 MG TABLET PO SCH (10:00)
== END 2018-01-24 16:50 | DRG 871 ==
LOC: ER 18:41 → EH 21:53 → 4S 23:30
PROVIDERS: ADMIT Internal Medicine; ATTEND Internal Medicine
DX: A41.9 Sepsis, unspecified organism (principal); J18.9 Pneumonia, unspecified organism; J96.01 Acute respiratory failure with hypoxia; F05 Delirium due to known physiological condition; E87.6 Hypokalemia; I16.0 Hypertensive urgency; R41.82 Altered mental status, unspecified; I25.10 Atherosclerotic heart disease of native coronary artery without angina pectoris; I10 Essential (primary) hypertension; E11.9 Type 2 diabetes mellitus without complications; F03.90 Unspecified dementia, unspecified severity, without behavioral disturbance, psychotic disturbance, mood disturbance, and anxiety; Z86.73 Personal history of transient ischemic attack (TIA), and cerebral infarction without residual deficits; Z79.2 Long term (current) use of antibiotics; Z79.84 Long term (current) use of oral hypoglycemic drugs; Z79.82 Long term (current) use of aspirin; Z79.899 Other long term (current) drug therapy
CPT/HCPCS: 36415; 51701; 70450; 71045; 80048; 80053; 80202; 81001; 82550; 82553; 82803; 82962; 83605; 83735; 84484; 85025; 85610; 87040; 87086; 93005; 93010; 94640; 94667; 94668; 94762; 94799; 96374; 99285; G8978-GP; G8979-GP; J0360; J0692; J1644; J1815; J3370; J3475; J3480; J3490; J7060; J7620

== ENCOUNTER 2018-07-26 19:08 | Inpatient (IN) | payer MEDICARE ==
--- NOTE | 2018-07-26 19:38 | ER Document Report ---
ED General - General Chief Complaint: Altered Mental Status Stated Complaint: ALTERED MENTAL STATUS Time Seen by Provider: 07/26/18 19:21 Notes: Patient is a 72-year-old female that comes to the emergency department for chief complaint of altered mental status. She comes from home. She does have dementia but she apparently operates close to a normal baseline, this changed since this morning when she became confused and she has been frequently confused since that time per report. She has a history of type 2 diabetes, hypertension, hyperlipidemia. She has Macrobid with her. No reported fever, vomiting, cough, or other particular symptoms. TRAVEL OUTSIDE OF THE [place] IN LAST 30 DAYS: No - Related Data Allergies/Adverse Reactions: divalproex sodium [From Depakote] Allergy (Verified 01/13/18 10:07) Penicillins Allergy (Verified 01/13/18 10:07) propoxyphene [Propoxyphene] Allergy (Verified 01/13/18 10:07) Past Medical History - General Information source: Patient, Emergency Med Personnel - Social History Smoking Status: Never Smoker Drug Abuse: None Lives with: Family Family History: Other - Not available Patient has suicidal ideation: No Patient has homicidal ideation: No - Past Medical History Cardiac Medical History: Reports: Hx Hypercholesterolemia, Hx Hypertension Pulmonary Medical History: Reports: Hx Bronchitis Neurological Medical History: Reports: Hx Cerebrovascular Accident Endocrine Medical History: Reports: Hx Diabetes Mellitus Type 2 Renal/ Medical History: Denies: Hx Peritoneal Dialysis Psychiatric Medical History: Denies: Hx Depression Past Surgical History: Reports: Hx Cardiac Catheterization - Stents x 2, Hx Orthopedic Surgery - R knee - Immunizations Hx Diphtheria, Pertussis, Tetanus Vaccination: Yes Review of Systems - Review of Systems Constitutional: See HPI EENT: No symptoms reported Cardiovascular: No symptoms reported Respiratory: No symptoms reported Gastrointestinal: No symptoms reported Genitourinary: No symptoms reported Female Genitourinary: No symptoms reported Musculoskeletal: No symptoms reported Skin: No symptoms reported Hematologic/Lymphatic: No symptoms reported Neurological/Psychological: See HPI Physical Exam - Vital signs Vitals: Resp Pulse Ox 25 H 97 07/26/18 19:33 07/26/18 19:33 - Notes Notes: GENERAL: Patient is awake, responds sluggishly to anything. She does not appear to be in any distress. HEAD: Normocephalic, atraumatic. EYES: Pupils equal, round, and reactive to light. Extraocular movements intact. ENT: Oral mucosa moist, tongue midline. Oropharynx unremarkable. Airway patent. Nares patent, no nasal septal hematoma, TM's intact. NECK: Full range of motion. Supple. Trachea midline. LUNGS: Clear to auscultation bilaterally, no wheezes, rales, or rhonchi. No respiratory distress. Occasional congested cough. HEART: Regular rate and rhythm. No murmur ABDOMEN: Soft, non-tender. Non-distended. Bowel sounds present in all 4 quadrants. GENITOURINARY: Erythematous external genitalia and groin suggestive of Galilea infection. EXTREMITIES: Moves all 4 extremities. No edema, normal radial and dorsalis pedis pulses bilaterally. No cyanosis. BACK: no cervical, thoracic, lumbar midline tenderness. Normal distal neurovascular exam. NEUROLOGICAL: Sluggish, oriented to place but not time or events. Normal speech. Inconsistent with cooperating with neurological exam (will start following directions and then stare and stop following directions, will not complete two-step commands). SKIN: Warm, dry, normal turgor. No rashes or lesions noted. Course - Re-evaluation Re-evalutation: Patient is hypoxic at 90-91 on room air, she is placed on 2 L and this resolved with oxygen saturation of 96%. She has a occasional congested cough. She has superficial skin breakdown with apparent yeast infection but no decubitus ulcer noted. She has soft nontender abdomen, clear lungs, no tachypnea, no signs of distress. She is very sluggish in her responses. Occasionally she responds appropriately ("I came in an ambulance"), and will follow commands, occasionally she will not follow commands and she will just stare at me. She tells me that it is the year 2047. When asked if she has any pain she states "I do not think so". Review of medical history shows that she has a history of CVA and cardiac stents. CAT scan of the head is negative. 07/26/18 Chest x-ray showing possible left lower lobe pneumonia. Patient has leukocytosis at 17,000 with elevated neutrophils and 2% bands. Lactic acid is negative. Venous blood gas does not show acidosis. General chemistry unremarkable. Urinalysis unremarkable. Blood cultures pending. Started patient on Rocephin and azithromycin for community acquired pneumonia. On reevaluation patient maintains good oxygenation on 2 L nasal cannula, she is not tachycardic or distress. She remains somewhat confused. is not bedside. I discussed with him, he states that patient is far below her baseline and she is usually almost completely oriented, conversational, cooperative. He states she has been this way before. He states her primary care provider is not Dr. Brown (this was temporary for rehab). Discussed recommended admission for pneumonia with hypoxia and altered mental status. He states agreement. He states that he feels she needs additional care and will likely need to be placed in long-term care facility or have more care at home. 07/26/18 22:[address] Trevizo, hospitalist, patient will be admitted. - Vital Signs Vital signs: Temp Pulse Resp BP Pulse Ox 72 21 H 108/53 L 93 07/27/18 00:45 07/27/18 02:01 07/27/18 02:01 07/27/18 02:01 - Laboratory Result Diagrams: 07/26/18 20:40 07/26/18 20:40 Laboratory results interpreted by me: 07/26/18 07/26/18 07/26/18 20:40 20:40 20:40 WBC 17.6 H RDW 16.9 H Seg Neuts % (Manual) 90 H Band Neutrophils % 2 L Lymphocytes % (Manual) 4 L Abs Neuts (Manual) 16.2 H Glucose 176 H Urine Protein 100 H Urine Ketones 20 H Urine Blood SMALL H Discharge - Discharge Clinical Impression: Hypoxia Altered mental status Qualifiers: Altered mental status type: unspecified Qualified Code(s): R41.82 - Altered mental status, unspecified Leukocytosis Qualifiers: Leukocytosis type: unspecified Qualified Code(s): D72.829 - Elevated white blood cell count, unspecified Left lower lobe pneumonia Qualifiers: Pneumonia type: due to unspecified organism Qualified Code(s): J18.1 - Lobar pneumonia, unspecified organism Condition: Fair Disposition: ADMITTED INPATIENT Admitting Provider: Hospitalist Unit Admitted: Telemetry
--- NOTE | 2018-07-26 20:07 | RADIOLOGY REPORT (SQ) ---
EXAM DESCRIPTION: CT HEAD WITHOUT COMPLETED DATE/TIME: 07/26/2018 7:59 pm REASON FOR STUDY: altered mental status COMPARISON: 01/19/2018 TECHNIQUE: Axial images acquired through the brain without intravenous contrast. Images reviewed wi th bone, brain and subdural windows. Additional sagittal and coronal reconstructions were generated. Images stored on PACS. All CT scanners at this facility use dose modulation, iterative reconstruction, and/or weight based d osing when appropriate to reduce radiation dose to as low as reasonably achievable (ALARA). [facility]: Dose Right [facility]: CareDose [facility]: Dose Right [facility]: Teradose 4D [facility]: Smart New [facility] RADIATION DOSE: CT Rad equipment meets quality standard of care and radiation dose reduction techniq ues were employed. CTDIvol: 53.2 mGy. DLP: 1044 mGy-cm.mGy. LIMITATIONS: None. FINDINGS: VENTRICLES: Prominent. CEREBRUM: No masses. No hemorrhage. No midline shift. Areas of low density in the white matter mos t likely due to chronic micro-vascular ischemic change. No evidence for acute infarction. CEREBELLUM: No masses. No hemorrhage. No alteration of density. No evidence for acute infarction. EXTRAAXIAL SPACES: Age-related involutional change. No fluid collections. No masses. ORBITS AND GLOBE: No intra- or extraconal masses. Normal contour of globe without masses. CALVARIUM: No fracture. PARANASAL SINUSES: No fluid or mucosal thickening. SOFT TISSUES: No mass or hematoma. OTHER: No other significant finding. IMPRESSION: CHRONIC CHANGES OF ATROPHY AND MICROVASCULAR ISCHEMIA. NO ACUTE PROCESS. EVIDENCE OF ACUTE STROKE: NO. TECHNICAL DOCUMENTATION: JOB ID: [id number] Quality ID # [id number]: Final reports with documentation of one or more dose reduction techniques (e.g., Au tomated exposure control, adjustment of the mA and/or kV according to patient size, use of iterative reconstruction technique) 2010 [employer]- All Rights Reserved Reading location - IP/workstation name: [email or web address]
--- NOTE | 2018-07-26 20:33 | RADIOLOGY REPORT (SQ) ---
EXAM DESCRIPTION: CHEST SINGLE VIEW COMPLETED DATE/TIME: 07/26/2018 8:02 pm REASON FOR STUDY: AMS, hypoxia COMPARISON: 03/03/2011 EXAM PARAMETERS: NUMBER OF VIEWS: One view. TECHNIQUE: Single frontal radiographic view of the chest acquired. RADIATION DOSE: NA LIMITATIONS: None. FINDINGS: LUNGS AND PLEURA: Ill-defined opacification in the left base. MEDIASTINUM AND HILAR STRUCTURES: No masses. Contour normal. HEART AND VASCULAR STRUCTURES: Heart normal in size. Normal vasculature. BONES: No acute findings. HARDWARE: None in the chest. OTHER: No other significant finding. IMPRESSION: Cannot exclude left lower lobe pneumonia. TECHNICAL DOCUMENTATION: JOB ID: [id number] [employer]- All Rights Reserved Reading location - IP/workstation name: [email or web address]
[2018-07-26 21:06] LABS: HEMATOCRIT 38.3 % (36.0-47.0); HEMOGLOBIN 12.5 g/dL (12.0-15.5); MEAN CORPUSCULAR HEMOGLOBIN 27.6 pg (27.0-33.4); MEAN CORPUSCULAR HGB CONC 32.7 g/dL (32.0-36.0); MEAN CORPUSCULAR VOLUME 85 fl (80-97); PLATELET COUNT 266 10^3/uL (150-450); RED BLOOD COUNT 4.53 10^6/uL (3.72-5.28); RED CELL DISTRIBUTION WIDTH 16.9 % (11.5-14.0); WHITE BLOOD COUNT 17.6 10^3/uL (4.0-10.5)
[2018-07-26 21:08] LABS: APPEARANCE,URINE SLIGHTLY-CLOUDY; BILIRUBIN,URINE NEGATIVE (NEGATIVE); COLOR,URINE YELLOW; GLUCOSE, URINE NEGATIVE (NEGATIVE); KETONES,URINE 20 mg/dL (NEGATIVE); LEUKOCYTE ESTERASE,URINE NEGATIVE (NEGATIVE); NITRITE,URINE NEGATIVE (NEGATIVE); PROTEIN,URINE 100 mg/dL (NEGATIVE); URINE SPECIFIC GRAVITY 1.012; UROBILINOGEN,URINE NEGATIVE mg/dL (<2.0)
[2018-07-26 21:18] LABS: VENOUS BLOOD BASE EXCESS 0.8 mmol/L; VENOUS BLOOD HCO3 26.7 mmol/L (20-32); VENOUS BLOOD PCO2 47.3 mmHg (35-63); VENOUS BLOOD PH 7.37 (7.30-7.42)
[2018-07-26] MEDS ORDERED: AZITHROMYCIN INJ 500 MG VIAL IV ONE (21:18)
[2018-07-26] MEDS ORDERED: CEFTRIAXONE 1 GM/D5W RTU 1 GM/50 ML RTUPB IV ONE (21:18)
[2018-07-26 21:20] LABS: ALANINE AMINOTRANSFERASE 29 U/L (9-52); ALKALINE PHOSPHATASE 123 U/L (38-126); ANION GAP 13 (5-19); ASPARTATE AMINO TRANSFERASE 26 U/L (14-36); BILIRUBIN,DIRECT 0.3 mg/dL (0.0-0.4); BILIRUBIN,TOTAL 0.7 mg/dL (0.2-1.3); BLOOD UREA NITROGEN 17 mg/dL (7-20); CALCIUM 10.1 mg/dL (8.4-10.2); CARBON DIOXIDE 26 mmol/L (22-30); CHLORIDE 99 mmol/L (98-107); GLUCOSE 176 mg/dL (75-110); POTASSIUM 3.8 mmol/L (3.6-5.0); SODIUM 138.1 mmol/L (137-145)
[2018-07-26 21:22] LABS: ABSOLUTE LYMPHOCYTES# (MANUAL) 0.7 10^3/uL (0.5-4.7); ABSOLUTE MONOCYTES # (MANUAL) 0.7 10^3/uL (0.1-1.4); ABSOLUTE NEUTROPHILS# (MANUAL) 16.2 10^3/uL (1.7-8.2); ANISOCYTOSIS 1+; BAND NEUTROPHILS % (MANUAL) 2 % (3-5); BASOPHILS % (MANUAL) 0 % (0-2); EOSINOPHILS % (MANUAL) 0 % (0-6); LYMPHOCYTES % (MANUAL) 4 % (13-45); MONOCYTES % (MANUAL) 4 % (3-13); PLATELET COMMENT ADEQUATE; POIKILOCYTOSIS SLIGHT; SEGMENTED NEUTROPHILS % (MAN) 90 % (42-78); TOTAL CELLS COUNTED 100; TOXIC GRANULATION SLIGHT
[2018-07-26] MEDS ORDERED: ONDANSETRON 4 MG TAB.RAPDIS PO PRN (22:14)
[2018-07-26] MEDS ORDERED: ONDANSETRON HCL INJ/PF 4 MG/2 ML SDV IV PRN (22:14)
[2018-07-26] MEDS ORDERED: MAG HYDROX/AL HYDROX/SIMETH SUSP 30 ML UDCUP PO PRN (22:14)
[2018-07-26] MEDS ORDERED: ACETAMINOPHEN 325 MG TABLET PO PRN (22:24)
[2018-07-26] MEDS ORDERED: ACETAMINOPHEN 650 MG SUPP.RECT PR PRN (22:24)
[2018-07-26] MEDS ORDERED: METHYLPREDNISOLONE INJ 125 MG/2 ML SDV IV ONE (22:27)
[2018-07-26] MEDS ORDERED: AZITHROMYCIN INJ 500 MG VIAL IV PRN (22:52)
[2018-07-26] MEDS ORDERED: AZITHROMYCIN 500 MG in DEXTROSE 5%-WATER 250 ML IV ONE (23:00)
[2018-07-26] MEDS ORDERED: AZITHROMYCIN INJ 500 MG VIAL IV SCH (23:00)
[2018-07-26] MEDS ORDERED: ACETYLCYSTEINE 20% SOLN 800 MG/4 ML VIAL.NEB NEB ONE (23:00)
[2018-07-26] MEDS ORDERED: ACETYLCYSTEINE 20% SOLN 6000 MG/30 ML VIAL ONE (23:49)
[2018-07-27] MEDS ORDERED: METHYLPREDNISOLONE INJ 40 MG/1 ML SDV IV SCH
--- NOTE | 2018-07-27 00:36 | PDOC H&P ---
History of Present Illness Admission Date/PCP: 07/26/18 22:12 MOSES DUNN CRNA Patient complains of: Altered mental status History of Present Illness: CARO COKER is a 72 year old female who presented from home to the emergency room via EMS with a history of that she had acutely developed significantly increased confusion (no cough, wheezing or evidence of dyspnea were reported) beginning on the morning of her admission. Patient was sent by her who did not accompany her. Patient has a history of dementia and is unable to contribute to her care though she is quite pleasant she has significant short and long-term memory deficits. In the emergency room she was found to have hypoxia with an O2 sat of approximately 90% without support and improving to 94% to 96% with 2 L per nasal cannula. CT scan of her head was negative for acute changes and her EKG revealed no evidence of acute ischemia or myocardial injury. A chest x-ray did not entirely exclude a left lower lobe pneumonia though this was not a definitive diagnosis. No other symptoms were reported to the emergency room staff regarding this patient. Because of her hypoxia she will be admitted to inpatient status and treated for an acute exacerbation of her chronic obstructive pulmonary disease. Past Medical History Past Medical History: Past medical, surgical, social and family histories are obtained from records as patient has significant dementia and cannot contribute to her care. Cardiac Medical History: Reports: Coronary Artery Disease, Hyperlipidema, Hypertension Pulmonary Medical History: Reports: Bronchitis, Chronic Obstructive Pulmonary Disease (COPD), Pneumonia, Respiratory Failure - hypoxic EENT Medical History: Reports: None Neurological Medical History: Denies: Multiple Sclerosis, Seizures Endocrine Medical History: Reports: Diabetes Mellitus Type 2 Denies: Hyperthyroidism Renal/ Medical History: Denies: Chronic Kidney Disease, Nephrolithiasis Malignancy Medical History: Reports: None GI Medical History: Denies: Cirrhosis, Hepatitis Musculoskeltal Medical History: Reports: Arthritis Denies: Gout Skin Medical History: Denies: Eczema, Psoriasis Psychiatric Medical History: Reports: Dementia Denies: Alcohol Dependency, Depression, Substance Abuse, Tobacco Dependency Traumatic Medical History: Reports: None Hematology: Denies: Anemia, Bleeding Tendencies Infectious Medical History: Reports: None Past Surgical History Past Surgical History: Past medical, surgical, social and family histories are obtained from records as patient has significant dementia and cannot contribute to her care. Past Surgical History: Reports: Cardiac Catheterization - Stents x 2, Orthopedic Surgery - R knee Social History Information Source: [facility] Records Lives with: Spouse/Significant other Smoking Status: Never Smoker Frequency of Alcohol Use: None Hx Recreational Drug Use: No Drugs: None Hx Prescription Drug Abuse: No Past Social History Note: Past medical, surgical, social and family histories are obtained from records as patient has significant dementia and cannot contribute to her care. - Advance Directive Resuscitation Status: Full Code Surrogate healthcare decision maker:: Spouse Family History Family History: Past medical, surgical, social and family histories are obtained from records as patient has significant dementia and cannot contribute to her care. Parental Family History Reviewed: No Children Family History Reviewed: No Sibling(s) Family History Reviewed.: No Medication/Allergy Home Medications: Atorvastatin Calcium [Lipitor 80 mg Tablet] 80 mg PO QHS 01/20/18 Imipramine HCl [Tofranil 25 mg Tablet] 25 mg PO QPM 01/20/18 Imipramine HCl [Tofranil 25 mg Tablet] 50 mg PO QAM 01/20/18 Lansoprazole [Prevacid] 30 mg PO Q6AM 01/20/18 Metformin HCl [Metformin HCl ER] 500 mg PO DAILY 01/20/18 Metoprolol Succinate [Toprol XL 100 mg Tablet] 100 mg PO DAILY 01/20/18 Valsartan [Diovan] 320 mg PO DAILY 01/20/18 Amlodipine Besylate [Norvasc 5 mg Tablet] 10 mg PO DAILY tablet 01/24/18 Aspirin [Aspirin 325 mg Tablet] 325 mg PO DAILY tablet 01/24/18 Cefpodoxime Proxetil [Vantin 100 mg Tablet] 1 tab PO Q12 #10 tab 01/24/18 Docusate Sodium [Colace 100 mg Capsule] 100 mg PO BID capsule 01/24/18 Fluticasone Propionate [Flonase Nasal [place] 50 Mcg/[place] 16 gm] 2 spray NASL Q12 spray.pump 01/24/18 Ipratropium/Albuterol Sulfate [Duoneb 3 ml Ampul] 3 ml [facility] RTQ8 vial.neb 01/24/18 Allergies/Adverse Reactions: divalproex sodium [From Depakote] Allergy (Verified 01/13/18 10:07) Penicillins Allergy (Verified 01/13/18 10:07) propoxyphene [Propoxyphene] Allergy (Verified 01/13/18 10:07) Review of Systems ROS unobtainable: Due to mental status Physical Exam Vital Signs: Intake & Output 07/24/18 07/25/18 07/26/18 23:59 23:59 23:59 Intake Total 50 Balance 50 General appearance: PRESENT: no acute distress, cooperative Head exam: PRESENT: atraumatic, normocephalic Eye exam: PRESENT: conjunctiva pink, EOMI. ABSENT: scleral icterus Ear exam: PRESENT: normal external ear exam. ABSENT: drainage Mouth exam: PRESENT: dry mucosa, neck supple Neck exam: ABSENT: JVD, thyromegaly, tracheal deviation Respiratory exam: PRESENT: decreased breath sounds - Minimally decreased breath sounds throughout all lópez consistent with mild COPD, prolonged expiratory phas - Minimally prolonged expiration phase, rhonchi - Rare scattered rhonchi noted in large airways, symmetrical, unlabored. ABSENT: rales, wheezes Cardiovascular exam: PRESENT: RRR. ABSENT: clicks, gallop, rubs Pulses: PRESENT: normal radial pulses, normal dorsalis pedis pul Vascular exam: PRESENT: normal capillary refill. ABSENT: pallor GI/Abdominal exam: PRESENT: normal bowel sounds, soft Rectal exam: PRESENT: deferred Extremities exam: ABSENT: joint swelling, pedal edema Musculoskeletal exam: ABSENT: deformity, dislocation Neurological exam: PRESENT: alert, oriented to person, CN II-XII grossly intact. ABSENT: oriented to place, oriented to time, oriented to situation, motor sensory deficit Psychiatric exam: PRESENT: appropriate affect, normal mood, other - Confused with significant short and long-term memory deficits Skin exam: PRESENT: dry, intact, warm. ABSENT: jaundice, rash, urticaria Results Laboratory Results: 07/26/18 20:40 07/26/18 20:40 07/26/18 07/26/18 07/26/18 20:40 20:40 20:40 WBC 17.6 H RBC 4.53 Hgb 12.5 Hct 38.3 MCV 85 MCH 27.6 MCHC 32.7 RDW 16.9 H Plt Count 266 Seg Neutrophils % Not Reportable Lymphocytes % Not Reportable Monocytes % Not Reportable Eosinophils % Not Reportable Basophils % Not Reportable Absolute Neutrophils Not Reportable Absolute Lymphocytes Not Reportable Absolute Monocytes Not Reportable Absolute Eosinophils Not Reportable Absolute Basophils Not Reportable VBG pH VBG pCO2 VBG HCO3 VBG Base Excess Sodium 138.1 Potassium 3.8 Chloride 99 Carbon Dioxide 26 Anion Gap 13 BUN 17 Creatinine 0.79 Est GFR ( Amer) > 60 Est GFR (Non-Af Amer) > 60 Glucose 176 H Lactic Acid 1.6 Calcium 10.1 Total Bilirubin 0.7 AST 26 ALT 29 Alkaline Phosphatase 123 Total Protein 8.0 Albumin 5.0 Urine Color Urine Appearance Urine pH Ur Specific Dora Urine Protein Urine Glucose (UA) Urine Ketones Urine Blood Urine Nitrite Ur Leukocyte Esterase Urine WBC (Auto) Urine RBC (Auto) 07/26/18 07/26/18 20:40 20:40 WBC RBC Hgb Hct MCV MCH MCHC RDW Plt Count Seg Neutrophils % Lymphocytes % Monocytes % Eosinophils % Basophils % Absolute Neutrophils Absolute Lymphocytes Absolute Monocytes Absolute Eosinophils Absolute Basophils VBG pH 7.37 VBG pCO2 47.3 VBG HCO3 26.7 VBG Base Excess 0.8 Sodium Potassium Chloride Carbon Dioxide Anion Gap BUN Creatinine Est GFR ( Amer) Est GFR (Non-Af Amer) Glucose Lactic Acid Calcium Total Bilirubin AST ALT Alkaline Phosphatase Total Protein Albumin Urine Color YELLOW Urine Appearance SLIGHTLY-CLOUDY Urine pH 5.0 Ur Specific Dora 1.012 Urine Protein 100 H Urine Glucose (UA) NEGATIVE Urine Ketones 20 H Urine Blood SMALL H Urine Nitrite NEGATIVE Ur Leukocyte Esterase NEGATIVE Urine WBC (Auto) 1 Urine RBC (Auto) 1 07/26/18 20:40 Troponin I < 0.012 Impressions: Chest X-Ray 07/26/18 19:31 IMPRESSION: Cannot exclude left lower lobe pneumonia. Head CT 07/26/18 19:31 IMPRESSION: CHRONIC CHANGES OF ATROPHY AND MICROVASCULAR ISCHEMIA. NO ACUTE PROCESS. EVIDENCE OF ACUTE STROKE: NO. Assessment & Plan - Diagnosis (1) Acute encephalopathy Is this a current diagnosis for this admission?: Yes Plan: Patient's acute encephalopathy may be due to hypoxia or stress related to a possible left lower lobe pneumonitis. Patient's pneumonitis will be treated and her hypoxia will be addressed with supplemental oxygen and a pulmonary toilet. She will be started on a short course of steroids and further intervention will be entertained if her mental status does not improve. (2) Left lower lobe pneumonia Qualifiers: Pneumonia type: due to unspecified organism Qualified Code(s): J18.1 - Lo bar pneumonia, unspecified organism Is this a current diagnosis for this admission?: Yes Plan: Radiology indicates a left lower lobe pneumonia. Patient started on antibiotic therapy including Rocephin and Zithromax for community-acquired pneumonia. She also be treated with a pulmonary toilet and a short course of intravenous steroids. (3) Leukocytosis Qualifiers: Leukocytosis type: unspecified Qualified Code(s): D72.829 - Elevated white blood cell count, unspecified Is this a current diagnosis for this admission?: Yes Plan: Patient's leukocytosis will be followed with serial complete blood counts on a daily basis. (4) Acute hypoxemic respiratory failure Is this a current diagnosis for this admission?: Yes Plan: Patient's respiratory failure will be treated with supplemental oxygen and a pulmonary toilet. - Time Time Spent: 30 to 50 Minutes Critical Time spent with patient: Less than 15 minutes Medications reviewed and adjusted accordingly: Yes - Inpatient Certification Based on my medical assessment, after consideration of the patient's comorbidities, presenting symptoms, or acuity I expect that the services needed warrant INPATIENT care.: Yes I certify that my determination is in accordance with my understanding of Medicare's requirements for reasonable and necessary INPATIENT services [42 CFR 412.3e].: Yes Medical Necessity: Need Close Monitoring Due to Risk of Patient Decompensation, Need for Nebulizer Therapy and Monitoring of Response, Need for IV Antibiotics, Risk of Complication if Not Cared For in Hospital
[2018-07-27] MEDS: LEVALBUTEROL HCL NEB 1.25 MG/3 ML AMPUL NEB SCH ×3 (00:44→16:42)
[2018-07-27] MEDS: IPRATROPIUM BROMIDE 0.02% NEB 0.5 MG/2.5 ML AMPUL NEB SCH ×3 (00:44→16:42)
[2018-07-27 04:35] LABS: HEMATOCRIT 34.3 % (36.0-47.0); HEMOGLOBIN 11.5 g/dL (12.0-15.5); MEAN CORPUSCULAR HEMOGLOBIN 28.2 pg (27.0-33.4); MEAN CORPUSCULAR HGB CONC 33.5 g/dL (32.0-36.0); MEAN CORPUSCULAR VOLUME 84 fl (80-97); PLATELET COUNT 258 10^3/uL (150-450); RED BLOOD COUNT 4.07 10^6/uL (3.72-5.28); RED CELL DISTRIBUTION WIDTH 17.2 % (11.5-14.0); WHITE BLOOD COUNT 22.4 10^3/uL (4.0-10.5)
[2018-07-27 04:56] LABS: ABSOLUTE MONOCYTES # (MANUAL) 0.9 10^3/uL (0.1-1.4); ABSOLUTE NEUTROPHILS# (MANUAL) 21.5 10^3/uL (1.7-8.2); ANION GAP 11 (5-19); BASOPHILS % (MANUAL) 0 % (0-2); BLOOD UREA NITROGEN 22 mg/dL (7-20); CALCIUM 9.2 mg/dL (8.4-10.2); CARBON DIOXIDE 29 mmol/L (22-30); CHLORIDE 99 mmol/L (98-107); EOSINOPHILS % (MANUAL) 0 % (0-6); GLUCOSE 222 mg/dL (75-110); LYMPHOCYTES % (MANUAL) 0 % (13-45); MONOCYTES % (MANUAL) 4 % (3-13); POTASSIUM 3.6 mmol/L (3.6-5.0); SEGMENTED NEUTROPHILS % (MAN) 96 % (42-78); SODIUM 138.8 mmol/L (137-145); TOTAL CELLS COUNTED 100
[2018-07-27 04:57] LABS: ANISOCYTOSIS 1+; PLATELET COMMENT ADEQUATE; PLATELET LARGE PRESENT; TOXIC GRANULATION SLIGHT
[2018-07-27 05:12] LABS: FREE T3 1.83 pg/mL (2.77-5.27); FREE T4 (FREE THYROXINE) 1.3 ng/dL (0.78-2.19)
[2018-07-27 05:26] LABS: THYROID STIMULATING HORMONE 1.12 uIU/mL (0.47-4.68)
[2018-07-27] MEDS: METHYLPREDNISOLONE INJ 40 MG/1 ML SDV IV SCH ×3 (05:38→17:21)
[2018-07-27] MEDS: HEPARIN SOD (PORCINE) 5,000 UNIT/ML 1 ML SYRINGE SUBCUT SCH ×3 (05:38→22:36)
[2018-07-27] MEDS: BUDESONIDE NEB 0.5 MG/2 ML AMPUL NEB SCH ×2 (07:46→19:33)
[2018-07-27] MEDS: ACETYLCYSTEINE 20% SOLN 800 MG/4 ML VIAL.NEB NEB SCH ×2 (07:46→19:33)
--- NOTE | 2018-07-27 07:57 | EKG REPORT ---
SEVERITY:- ABNORMAL ECG - SINUS RHYTHM PROBABLE LVH WITH SECONDARY REPOL ABNRM : Confirmed by: Sam Velez MD 27-Jul-2018 07:57:24
[2018-07-27] MEDS: IMIPRAMINE HCL 25 MG TABLET PO SCH ×2 (08:23→17:33)
[2018-07-27] MEDS ORDERED: AMLODIPINE BESYLATE 5 MG TABLET PO SCH ×2 (10:00→10:41)
[2018-07-27] MEDS ORDERED: METOPROLOL SUCCINATE 50 MG TAB.SR.24H PO SCH (10:00)
[2018-07-27] MEDS ORDERED: VALSARTAN 160 MG TABLET PO SCH (10:00)
[2018-07-27] MEDS: ASPIRIN 325 MG TABLET PO SCH (10:12)
[2018-07-27] MEDS: DOCUSATE SODIUM 100 MG CAPSULE PO SCH ×2 (10:12→17:21)
[2018-07-27] MEDS: FAMOTIDINE 20 MG TABLET PO SCH ×2 (10:13→22:36)
[2018-07-27] MEDS: METFORMIN HCL 500 MG TABLET PO SCH (10:13)
[2018-07-27] MEDS: CEFTRIAXONE 1 GM/D5W RTU 1 GM/50 ML RTUPB IV SCH (10:14)
--- NOTE | 2018-07-27 10:51 | PDOC PROGRESS REPORT ---
Subjective Progress Note for:: 07/27/18 Subjective:: Patient is still coughing. She is still on supplemental oxygen. Her white blood cell count was 22,000 this morning. Reason For Visit: HYPOXIA WITH AMS Physical Exam Vital Signs: Temp Pulse Resp BP Pulse Ox 97.9 F 66 15 111/70 99 07/27/18 02:58 07/27/18 08:00 07/27/18 09:07 07/27/18 09:07 07/27/18 09:07 Intake & Output 07/26/18 07/27/18 07/28/18 06:59 06:59 06:59 Intake Total 50 Balance 50 General appearance: PRESENT: no acute distress, cooperative, well-developed Head exam: PRESENT: normocephalic Respiratory exam: PRESENT: rhonchi - Left base. Lungs otherwise clear., symmetrical, unlabored. ABSENT: accessory muscle use, prolonged expiratory ph as, wheezes Cardiovascular exam: PRESENT: RRR, +S1, +S2 GI/Abdominal exam: PRESENT: normal bowel sounds, soft. ABSENT: distended, tenderness Extremities exam: ABSENT: pedal edema Neurological exam: PRESENT: alert, awake, oriented to person, oriented to place, CN II-XII grossly intact Psychiatric exam: PRESENT: appropriate affect. ABSENT: agitated, anxious Focused psych exam: ABSENT: restlessness Results Laboratory Results: 07/27/18 04:04 07/27/18 04:04 07/26/18 07/26/18 07/26/18 20:40 20:40 20:40 WBC 17.6 H RBC 4.53 Hgb 12.5 Hct 38.3 MCV 85 MCH 27.6 MCHC 32.7 RDW 16.9 H Plt Count 266 Seg Neutrophils % Not Reportable Lymphocytes % Not Reportable Monocytes % Not Reportable Eosinophils % Not Reportable Basophils % Not Reportable Absolute Neutrophils Not Reportable Absolute Lymphocytes Not Reportable Absolute Monocytes Not Reportable Absolute Eosinophils Not Reportable Absolute Basophils Not Reportable VBG pH VBG pCO2 VBG HCO3 VBG Base Excess Sodium 138.1 Potassium 3.8 Chloride 99 Carbon Dioxide 26 Anion Gap 13 BUN 17 Creatinine 0.79 Est GFR ( Amer) > 60 Est GFR (Non-Af Amer) > 60 Glucose 176 H Lactic Acid 1.6 Calcium 10.1 Magnesium Total Bilirubin 0.7 AST 26 ALT 29 Alkaline Phosphatase 123 Total Protein 8.0 Albumin 5.0 TSH Free T4 Free T3 pg/mL Urine Color Urine Appearance Urine pH Ur Specific [place] Urine Protein Urine Glucose (UA) Urine Ketones Urine Blood Urine Nitrite Ur Leukocyte Esterase Urine WBC (Auto) Urine RBC (Auto) 07/26/18 07/26/18 07/27/18 20:40 20:40 04:04 WBC 22.4 H RBC 4.07 Hgb 11.5 L Hct 34.3 L MCV 84 MCH 28.2 MCHC 33.5 RDW 17.2 H Plt Count 258 Seg Neutrophils % Not Reportable Lymphocytes % Not Reportable Monocytes % Not Reportable Eosinophils % Not Reportable Basophils % Not Reportable Absolute Neutrophils Not Reportable Absolute Lymphocytes Not Reportable Absolute Monocytes Not Reportable Absolute Eosinophils Not Reportable Absolute Basophils Not Reportable VBG pH 7.37 VBG pCO2 47.3 VBG HCO3 26.7 VBG Base Excess 0.8 Sodium Potassium Chloride Carbon Dioxide Anion Gap BUN Creatinine Est GFR ( Amer) Est GFR (Non-Af Amer) Glucose Lactic Acid Calcium Magnesium Total Bilirubin AST ALT Alkaline Phosphatase Total Protein Albumin TSH Free T4 Free T3 pg/mL Urine Color YELLOW Urine Appearance SLIGHTLY-CLOUDY Urine pH 5.0 Ur Specific [place] 1.012 Urine Protein 100 H Urine Glucose (UA) NEGATIVE Urine Ketones 20 H Urine Blood SMALL H Urine Nitrite NEGATIVE Ur Leukocyte Esterase NEGATIVE Urine WBC (Auto) 1 Urine RBC (Auto) 1 07/27/18 07/27/18 04:04 04:04 WBC RBC Hgb Hct MCV MCH MCHC RDW Plt Count Seg Neutrophils % Lymphocytes % Monocytes % Eosinophils % Basophils % Absolute Neutrophils Absolute Lymphocytes Absolute Monocytes Absolute Eosinophils Absolute Basophils VBG pH VBG pCO2 VBG HCO3 VBG Base Excess Sodium 138.8 Potassium 3.6 Chloride 99 Carbon Dioxide 29 Anion Gap 11 BUN 22 H Creatinine 1.18 Est GFR ( Amer) 55 L Est GFR (Non-Af Amer) 45 L Glucose 222 H Lactic Acid Calcium 9.2 Magnesium 1.4 L Total Bilirubin AST ALT Alkaline Phosphatase Total Protein Albumin TSH 1.12 Free T4 1.30 Free T3 pg/mL 1.83 L Urine Color Urine Appearance Urine pH Ur Specific [place] Urine Protein Urine Glucose (UA) Urine Ketones Urine Blood Urine Nitrite Ur Leukocyte Esterase Urine WBC (Auto) Urine RBC (Auto) 07/26/18 07/27/18 20:40 04:04 Troponin I < 0.012 NT-Pro-B Natriuret Pep 5620 H Impressions: Chest X-Ray 07/26/18 19:31 IMPRESSION: Cannot exclude left lower lobe pneumonia. Head CT 07/26/18 19:31 IMPRESSION: CHRONIC CHANGES OF ATROPHY AND MICROVASCULAR ISCHEMIA. NO ACUTE PROCESS. EVIDENCE OF ACUTE STROKE: NO. Assessment & Plan - Diagnosis (1) Left lower lobe pneumonia Qualifiers: Pneumonia type: due to unspecified organism Qualified Code(s): J18.1 - Lobar pneumonia, unspecified organism Is this a current diagnosis for this admission?: Yes Plan: Left lower lobe pneumonia by x-ray. The patient does not report sputum production. We will use mucolytic's and if we can obtain a specimen we will send her to the lab. When she is on antibiotic for several days a culture will not be useful. She is on Rocephin and azithromycin. (2) Acute encephalopathy Is this a current diagnosis for this admission?: Yes Plan: Most likely due to the pneumonia. As the pneumonia improves she should clear. (3) Leukocytosis Qualifiers: Leukocytosis type: unspecified Qualified Code(s): D72.829 - Elevated white blood cell count, unspecified Is this a current diagnosis for this admission?: Yes Plan: Her second CBC showed an increase in her white blood cell count to 22,000. Now she is on antibiotics we should see improvement in her white blood cell count. Continue to follow CBC. (4) Acute hypoxemic respiratory failure Is this a current diagnosis for this admission?: Yes Plan: Continue supplemental oxygen and wean as tolerated. (5) Hypomagnesemia Is this a current diagnosis for this admission?: Yes Plan: Magnesium is 1.4 on admission. Her 2 g of magnesium sulfate. Continue to monitor magnesium levels. - Time Time Spent with patient: 15-24 minutes Medications reviewed and adjusted accordingly: Yes
[2018-07-27] MEDS: MAGNESIUM SULFATE/D5W 1 GM/100 ML RTUPB IV SCH ×2 (11:26→12:43)
[2018-07-27] MEDS ORDERED: ONDANSETRON HCL INJ/PF 4 MG/2 ML SDV IV PRN (13:00)
[2018-07-27] MEDS ORDERED: ONDANSETRON 4 MG TAB.RAPDIS PO PRN (13:00)
[2018-07-27] MEDS: ALBUTEROL SULFATE 0.083% NEB 2.5 MG/3 ML AMPUL NEB PRN (19:33)
[2018-07-27] MEDS: AZITHROMYCIN 500 MG in DEXTROSE 5%-WATER 250 ML IV SCH (22:32)
[2018-07-27] MEDS: ATORVASTATIN CALCIUM 80 MG TABLET PO SCH (22:36)
[2018-07-27] MEDS: GUAIFENESIN 600 MG TABLET.SA PO SCH (22:36)
[2018-07-28] MEDS: IPRATROPIUM BROMIDE 0.02% NEB 0.5 MG/2.5 ML AMPUL NEB SCH ×4 (00:01→23:59)
[2018-07-28] MEDS: LEVALBUTEROL HCL NEB 1.25 MG/3 ML AMPUL NEB SCH ×4 (00:02→23:59)
[2018-07-28 04:23] LABS: HEMATOCRIT 32.5 % (36.0-47.0); HEMOGLOBIN 10.9 g/dL (12.0-15.5); MEAN CORPUSCULAR HGB CONC 33.6 g/dL (32.0-36.0); MEAN CORPUSCULAR VOLUME 83 fl (80-97); PLATELET COUNT 249 10^3/uL (150-450); RED BLOOD COUNT 3.89 10^6/uL (3.72-5.28); RED CELL DISTRIBUTION WIDTH 17.2 % (11.5-14.0); WHITE BLOOD COUNT 22.3 10^3/uL (4.0-10.5)
[2018-07-28 04:38] LABS: ABSOLUTE LYMPHOCYTES# (MANUAL) 0.9 10^3/uL (0.5-4.7); ABSOLUTE MONOCYTES # (MANUAL) 1.3 10^3/uL (0.1-1.4); ABSOLUTE NEUTROPHILS# (MANUAL) 20.1 10^3/uL (1.7-8.2); BAND NEUTROPHILS % (MANUAL) 1 % (3-5); BASOPHILS % (MANUAL) 0 % (0-2); EOSINOPHILS % (MANUAL) 0 % (0-6); LYMPHOCYTES % (MANUAL) 4 % (13-45); MONOCYTES % (MANUAL) 6 % (3-13); SEGMENTED NEUTROPHILS % (MAN) 89 % (42-78); TOTAL CELLS COUNTED 100
[2018-07-28 04:39] LABS: ANISOCYTOSIS 1+; PLATELET COMMENT ADEQUATE
[2018-07-28 04:42] LABS: ANION GAP 13 (5-19); BLOOD UREA NITROGEN 40 mg/dL (7-20); CALCIUM 8.9 mg/dL (8.4-10.2); CARBON DIOXIDE 23 mmol/L (22-30); CHLORIDE 98 mmol/L (98-107); GLUCOSE 271 mg/dL (75-110); POTASSIUM 3.5 mmol/L (3.6-5.0); SODIUM 133.9 mmol/L (137-145)
[2018-07-28] MEDS: HEPARIN SOD (PORCINE) 5,000 UNIT/ML 1 ML SYRINGE SUBCUT SCH ×3 (05:23→22:43)
[2018-07-28] MEDS: IMIPRAMINE HCL 25 MG TABLET PO SCH ×2 (07:56→17:11)
[2018-07-28] MEDS: ACETYLCYSTEINE 20% SOLN 800 MG/4 ML VIAL.NEB NEB SCH ×2 (08:07→20:06)
[2018-07-28] MEDS: BUDESONIDE NEB 0.5 MG/2 ML AMPUL NEB SCH ×2 (08:07→20:07)
[2018-07-28] MEDS ORDERED: CALCIUM CARBONATE 500 MG TAB.CHEW PO PRN (10:08)
[2018-07-28] MEDS ORDERED: NORMAL SALINE 1000 ML 1,000 ML IV PRN (10:11)
[2018-07-28] MEDS ORDERED: POTASSIUM CHLORIDE 10 MEQ CAPSULE.ER PO ONE (10:14)
[2018-07-28] MEDS: CEFTRIAXONE 1 GM/D5W RTU 1 GM/50 ML RTUPB IV SCH (10:18)
[2018-07-28] MEDS: METOPROLOL SUCCINATE 50 MG TAB.SR.24H PO SCH (10:18)
[2018-07-28] MEDS: GUAIFENESIN 600 MG TABLET.SA PO SCH ×2 (10:18→22:43)
[2018-07-28] MEDS: DOCUSATE SODIUM 100 MG CAPSULE PO SCH ×2 (10:18→17:09)
[2018-07-28] MEDS: FAMOTIDINE 20 MG TABLET PO SCH ×2 (10:18→22:43)
[2018-07-28] MEDS: METFORMIN HCL 500 MG TABLET PO SCH (10:18)
[2018-07-28] MEDS: AMLODIPINE BESYLATE 10 MG TABLET PO SCH (10:18)
[2018-07-28] MEDS: ASPIRIN 325 MG TABLET PO SCH (10:19)
[2018-07-28] MEDS: CLOTRIMAZOLE/BETAMETHASONE DIP CREAM 15 GM TOP PRN (10:26)
--- NOTE | 2018-07-28 19:25 | PDOC PROGRESS REPORT ---
Subjective Progress Note for:: 07/28/18 Subjective:: The patient is resting comfortably. She is not short of breath. Reason For Visit: HYPOXIA WITH AMS Physical Exam Vital Signs: Temp Pulse Resp BP Pulse Ox 97.9 F 70 16 167/58 H 93 07/28/18 15:50 07/28/18 16:47 07/28/18 16:47 07/28/18 15:50 07/28/18 16:47 Intake & Output 07/27/18 07/28/18 07/29/18 06:59 06:59 06:59 Intake Total 50 1550 450 Balance 50 1550 450 Weight 59.1 kg General appearance: PRESENT: no acute distress, cooperative Respiratory exam: PRESENT: crackles - Faint at left base, symmetrical, unlabored. ABSENT: accessory muscle use, rhonchi, wheezes Cardiovascular exam: PRESENT: RRR, +S1, +S2 GI/Abdominal exam: PRESENT: normal bowel sounds, soft. ABSENT: tenderness Neurological exam: PRESENT: alert, awake, oriented to person, oriented to place Psychiatric exam: PRESENT: normal mood, other - Anxious for home Skin exam: PRESENT: other - Both groin folds, both labia and through the perineal area almost to the hitesh cleft the skin is red and quite irritated. The patient reports that there is some discomfort. Results Laboratory Results: 07/28/18 04:04 07/28/18 04:04 07/28/18 07/28/18 04:04 04:04 WBC 22.3 H RBC 3.89 Hgb 10.9 L Hct 32.5 L MCV 83 MCH 28.0 MCHC 33.6 RDW 17.2 H Plt Count 249 Seg Neutrophils % Not Reportable Lymphocytes % Not Reportable Monocytes % Not Reportable Eosinophils % Not Reportable Basophils % Not Reportable Absolute Neutrophils Not Reportable Absolute Lymphocytes Not Reportable Absolute Monocytes Not Reportable Absolute Eosinophils Not Reportable Absolute Basophils Not Reportable Sodium 133.9 L Potassium 3.5 L Chloride 98 Carbon Dioxide 23 Anion Gap 13 BUN 40 H Creatinine 1.11 Est GFR ( Amer) 59 L Est GFR (Non-Af Amer) 49 L Glucose 271 H Calcium 8.9 Magnesium 2.6 H D 07/26/18 07/27/18 20:40 04:04 Troponin I < 0.012 NT-Pro-B Natriuret Pep 5620 H Impressions: Chest X-Ray 07/26/18 19:31 IMPRESSION: Cannot exclude left lower lobe pneumonia. Head CT 07/26/18 19:31 IMPRESSION: CHRONIC CHANGES OF ATROPHY AND MICROVASCULAR ISCHEMIA. NO ACUTE PROCESS. EVIDENCE OF ACUTE STROKE: NO. Assessment & Plan - Diagnosis (1) Left lower lobe pneumonia Qualifiers: Pneumonia type: due to unspecified organism Qualified Code(s): J18.1 - Lobar pneumonia, unspecified organism Is this a current diagnosis for this admission?: Yes Plan: The patient still has some findings in the left lower lobe. Surprisingly her white blood cell count is still elevated despite her clinical improvement. We will continue the antibiotic therapy and recheck her CBC tomorrow. (2) Acute encephalopathy Is this a current diagnosis for this admission?: Yes Plan: This seems to be improved. She was conversant. We talked about her dog and her cat that she misses at home. Most likely related to the infection and clearly improving. (3) Leukocytosis Qualifiers: Leukocytosis type: unspecified Qualified Code(s): D72.829 - Elevated white blood cell count, unspecified Is this a current diagnosis for this admission?: Yes Plan: As noted above, white blood cell count is still elevated. Recheck tomorrow. (4) Acute hypoxemic respiratory failure Is this a current diagnosis for this admission?: Yes Plan: Currently on room air with oxygen saturations greater than 90%. (5) Hypomagnesemia Is this a current diagnosis for this admission?: Yes Plan: Serum magnesium is slightly high with her last dose of magnesium sulfate. No further supplements. We will monitor and the magnesium will drift down to normal. (6) Dermatitis associated with moisture from urinary incontinence Is this a current diagnosis for this admission?: Yes Plan: There is marked and confluent dermatitis from the groin and labia through the cleft. The application of Lotrisone has started. Because this is a fragile area we will apply the Lotrisone once daily and use liberal barrier cream. To avoid further contact with urine I did ask to have a Minaya catheter inserted. - Time Time Spent with patient: 15-24 minutes Medications reviewed and adjusted accordingly: Yes
[2018-07-28] MEDS: ALBUTEROL SULFATE 0.083% NEB 2.5 MG/3 ML AMPUL NEB PRN (20:07)
[2018-07-28] MEDS: ATORVASTATIN CALCIUM 80 MG TABLET PO SCH (22:43)
[2018-07-28] MEDS: AZITHROMYCIN 500 MG in DEXTROSE 5%-WATER 250 ML IV SCH (22:44)
[2018-07-29] MEDS: HEPARIN SOD (PORCINE) 5,000 UNIT/ML 1 ML SYRINGE SUBCUT SCH ×3 (05:14→21:33)
[2018-07-29 05:26] LABS: ABSOLUTE BASOPHILS # (AUTO) 0.1 10^3/uL (0.0-0.2); ABSOLUTE EOSINOPHILS # (AUTO) 0.1 10^3/uL (0.0-0.6); ABSOLUTE LYMPHOCYTES (AUTO) 2.3 10^3/uL (0.5-4.7); ABSOLUTE MONOCYTES (AUTO) 0.9 10^3/uL (0.1-1.4); ABSOLUTE NEUT (AUTO) 8.1 10^3/uL (1.7-8.2); BASOPHILS % (AUTO) 0.5 % (0-2); EOSINOPHILS % (AUTO) 0.5 % (0-6); HEMATOCRIT 32.5 % (36.0-47.0); HEMOGLOBIN 10.8 g/dL (12.0-15.5); LYMPHOCYTES % (AUTO) 20.3 % (13-45); MEAN CORPUSCULAR HEMOGLOBIN 27.7 pg (27.0-33.4); MEAN CORPUSCULAR HGB CONC 33.2 g/dL (32.0-36.0); MEAN CORPUSCULAR VOLUME 84 fl (80-97); MONOCYTES % (AUTO) 8.1 % (3-13); PLATELET COUNT 239 10^3/uL (150-450); RED BLOOD COUNT 3.89 10^6/uL (3.72-5.28); RED CELL DISTRIBUTION WIDTH 17.6 % (11.5-14.0); SEGMENTED NEUTROPHILS % (AUTO) 70.6 % (42-78); TOTAL CELLS COUNTED % (AUTO) 100 %; WHITE BLOOD COUNT 11.4 10^3/uL (4.0-10.5)
[2018-07-29 06:02] LABS: ANION GAP 10 (5-19); BLOOD UREA NITROGEN 31 mg/dL (7-20); CALCIUM 8.9 mg/dL (8.4-10.2); CARBON DIOXIDE 24 mmol/L (22-30); CHLORIDE 103 mmol/L (98-107); GLUCOSE 154 mg/dL (75-110); POTASSIUM 3.5 mmol/L (3.6-5.0); SODIUM 136.5 mmol/L (137-145)
[2018-07-29] MEDS: LEVALBUTEROL HCL NEB 1.25 MG/3 ML AMPUL NEB SCH ×2 (08:03→16:19)
[2018-07-29] MEDS: BUDESONIDE NEB 0.5 MG/2 ML AMPUL NEB SCH ×2 (08:03→19:56)
[2018-07-29] MEDS: IPRATROPIUM BROMIDE 0.02% NEB 0.5 MG/2.5 ML AMPUL NEB SCH ×2 (08:03→16:19)
[2018-07-29] MEDS: ACETYLCYSTEINE 20% SOLN 800 MG/4 ML VIAL.NEB NEB SCH ×2 (08:04→19:56)
[2018-07-29] MEDS: CEFTRIAXONE 1 GM/D5W RTU 1 GM/50 ML RTUPB IV SCH (10:10)
[2018-07-29] MEDS: METFORMIN HCL 500 MG TABLET PO SCH (10:14)
[2018-07-29] MEDS: POTASSIUM CHLORIDE 10 MEQ CAPSULE.ER PO SCH (10:14)
[2018-07-29] MEDS: METOPROLOL SUCCINATE 50 MG TAB.SR.24H PO SCH (10:14)
[2018-07-29] MEDS: DOCUSATE SODIUM 100 MG CAPSULE PO SCH ×2 (10:15→17:50)
[2018-07-29] MEDS: AMLODIPINE BESYLATE 10 MG TABLET PO SCH (10:15)
[2018-07-29] MEDS: ASPIRIN 325 MG TABLET PO SCH (10:15)
[2018-07-29] MEDS: FAMOTIDINE 20 MG TABLET PO SCH ×2 (10:15→21:34)
[2018-07-29] MEDS: GUAIFENESIN 600 MG TABLET.SA PO SCH ×2 (10:15→21:34)
[2018-07-29] MEDS: IMIPRAMINE HCL 25 MG TABLET PO SCH ×2 (12:43→19:04)
[2018-07-29] MEDS: CLOTRIMAZOLE/BETAMETHASONE DIP CREAM 15 GM TOP PRN (16:43)
[2018-07-29] MEDS ORDERED: DEXTROSE 50%-WATER SYRINGE 25 GM/50 ML DOSE IV PRN (17:30)
[2018-07-29] MEDS ORDERED: INSULIN REG, HUMAN 100 UNIT/ML 3 ML VIAL (PYX) SUBCUT PRN (17:30)
[2018-07-29] MEDS ORDERED: DEXTROSE 40% GEL 15 GM TUBE X 2 PO PRN (17:30)
[2018-07-29] MEDS ORDERED: GLUCAGON,HUMAN RECOMB 1 MG INJ IM PRN (17:30)
[2018-07-29] MEDS ORDERED: DEXTROSE 40% GEL 15 GM TUBE PO PRN (17:30)
[2018-07-29] MEDS ORDERED: DEXTROSE 50%-WATER SYRINGE 12.5 GM/25 ML DOSE IV PRN (17:30)
[2018-07-29] MEDS: ALBUTEROL SULFATE 0.083% NEB 2.5 MG/3 ML AMPUL NEB PRN (19:56)
[2018-07-29] MEDS: ATORVASTATIN CALCIUM 80 MG TABLET PO SCH (21:33)
[2018-07-29] MEDS: CLOTRIMAZOLE/BETAMETHASONE DIP CREAM 15 GM TOP SCH (21:33)
[2018-07-29] MEDS ORDERED: AZITHROMYCIN 250 MG TABLET PO SCH (22:00)
[2018-07-29] MEDS ORDERED: CLOTRIMAZOLE/BETAMETHASONE DIP CREAM 15 GM TOP SCH (22:00)
--- NOTE | 2018-07-29 22:13 | PDOC PROGRESS REPORT ---
Subjective Progress Note for:: 07/29/18 Subjective:: The patient is doing well. She feels comfortable. She continues to feel better each day. Reason For Visit: HYPOXIA WITH AMS Physical Exam Vital Signs: Temp Pulse Resp BP Pulse Ox 97.9 F 68 16 154/70 H 99 07/29/18 19:45 07/29/18 19:45 07/29/18 19:45 07/29/18 19:45 07/29/18 19:45 Intake & Output 07/28/18 07/29/18 07/30/18 06:59 06:59 06:59 Intake Total 1550 1250 1340 Output Total 1300 1300 Balance 1550 -50 40 Weight 59.1 kg 59 kg General appearance: PRESENT: no acute distress, cooperative, well-developed Respiratory exam: PRESENT: clear to auscultation imelda, symmetrical, unlabored. ABSENT: rales, rhonchi, wheezes Cardiovascular exam: PRESENT: RRR, +S1, +S2 GI/Abdominal exam: PRESENT: normal bowel sounds, soft. ABSENT: distended, tenderness Musculoskeletal exam: PRESENT: ambulatory Neurological exam: PRESENT: alert, awake, oriented to person, oriented to place, oriented to situation Psychiatric exam: PRESENT: appropriate affect, normal mood. ABSENT: agitated, anxious Results Laboratory Results: 07/29/18 03:53 07/29/18 03:53 07/29/18 07/29/18 03:53 03:53 WBC 11.4 H RBC 3.89 Hgb 10.8 L Hct 32.5 L MCV 84 MCH 27.7 MCHC 33.2 RDW 17.6 H Plt Count 239 Seg Neutrophils % 70.6 Lymphocytes % 20.3 Monocytes % 8.1 Eosinophils % 0.5 Basophils % 0.5 Absolute Neutrophils 8.1 Absolute Lymphocytes 2.3 Absolute Monocytes 0.9 Absolute Eosinophils 0.1 Absolute Basophils 0.1 Sodium 136.5 L Potassium 3.5 L Chloride 103 Carbon Dioxide 24 Anion Gap 10 BUN 31 H Creatinine 0.89 Est GFR ( Amer) > 60 Est GFR (Non-Af Amer) > 60 Glucose 154 H Calcium 8.9 Magnesium 2.3 07/26/18 07/27/18 20:40 04:04 Troponin I < 0.012 NT-Pro-B Natriuret Pep 5620 H Impressions: Chest X-Ray 07/26/18 19:31 IMPRESSION: Cannot exclude left lower lobe pneumonia. Head CT 07/26/18 19:31 IMPRESSION: CHRONIC CHANGES OF ATROPHY AND MICROVASCULAR ISCHEMIA. NO ACUTE PROCESS. EVIDENCE OF ACUTE STROKE: NO. Assessment & Plan - Diagnosis (1) Left lower lobe pneumonia Qualifiers: Pneumonia type: due to unspecified organism Qualified Code(s): J18.1 - Lobar pneumonia, unspecified organism Is this a current diagnosis for this admission?: Yes Plan: White blood cell count finally decreased. Continue antibiotic therapy. Patient should be ready for discharge home tomorrow. (2) Acute encephalopathy Is this a current diagnosis for this admission?: Yes Plan: Improved (3) Leukocytosis Qualifiers: Leukocytosis type: unspecified Qualified Code(s): D72.829 - Elevated white blood cell count, unspecified Is this a current diagnosis for this admission?: Yes Plan: Greatly improved. Likely to be in the normal range tomorrow. (4) Acute hypoxemic respiratory failure Is this a current diagnosis for this admission?: Yes Plan: Resolved (5) Hypomagnesemia Is this a current diagnosis for this admission?: Yes Plan: Resolved (6) Dermatitis associated with moisture from urinary incontinence Is this a current diagnosis for this admission?: Yes Plan: Continue Lotrisone and barrier cream. Minaya catheter seems to be helping. We will discontinue the catheter prior to discharge however I did tell the patient that it is crucial that she try and keep the too-area free of urine as much as possible. - Time Time Spent with patient: Less than 15 minutes Medications reviewed and adjusted accordingly: Yes
[2018-07-30] MEDS: LEVALBUTEROL HCL NEB 1.25 MG/3 ML AMPUL NEB SCH ×2 (00:46→07:48)
[2018-07-30] MEDS: IPRATROPIUM BROMIDE 0.02% NEB 0.5 MG/2.5 ML AMPUL NEB SCH ×2 (00:46→07:48)
[2018-07-30 05:14] LABS: HEMATOCRIT 34.6 % (36.0-47.0); HEMOGLOBIN 11.6 g/dL (12.0-15.5); MEAN CORPUSCULAR HEMOGLOBIN 27.8 pg (27.0-33.4); MEAN CORPUSCULAR HGB CONC 33.4 g/dL (32.0-36.0); MEAN CORPUSCULAR VOLUME 83 fl (80-97); PLATELET COUNT 260 10^3/uL (150-450); RED BLOOD COUNT 4.16 10^6/uL (3.72-5.28); RED CELL DISTRIBUTION WIDTH 16.9 % (11.5-14.0); WHITE BLOOD COUNT 8.2 10^3/uL (4.0-10.5)
[2018-07-30 05:44] LABS: ANION GAP 11 (5-19); BLOOD UREA NITROGEN 21 mg/dL (7-20); CALCIUM 9.4 mg/dL (8.4-10.2); CARBON DIOXIDE 26 mmol/L (22-30); CHLORIDE 101 mmol/L (98-107); GLUCOSE 124 mg/dL (75-110); POTASSIUM 3.6 mmol/L (3.6-5.0); SODIUM 137.8 mmol/L (137-145)
[2018-07-30] MEDS: HEPARIN SOD (PORCINE) 5,000 UNIT/ML 1 ML SYRINGE SUBCUT SCH (06:16)
[2018-07-30] MEDS: ACETYLCYSTEINE 20% SOLN 800 MG/4 ML VIAL.NEB NEB SCH (07:48)
[2018-07-30] MEDS: BUDESONIDE NEB 0.5 MG/2 ML AMPUL NEB SCH (07:48)
[2018-07-30] MEDS: CEFTRIAXONE 1 GM/D5W RTU 1 GM/50 ML RTUPB IV SCH (09:01)
[2018-07-30] MEDS: ASPIRIN 325 MG TABLET PO SCH (09:02)
[2018-07-30] MEDS: CLOTRIMAZOLE/BETAMETHASONE DIP CREAM 15 GM TOP SCH (09:02)
[2018-07-30] MEDS: POTASSIUM CHLORIDE 10 MEQ CAPSULE.ER PO SCH (09:03)
[2018-07-30] MEDS: IMIPRAMINE HCL 25 MG TABLET PO SCH (09:03)
[2018-07-30] MEDS: METFORMIN HCL 500 MG TABLET PO SCH (09:04)
[2018-07-30] MEDS: GUAIFENESIN 600 MG TABLET.SA PO SCH (09:04)
[2018-07-30] MEDS: DOCUSATE SODIUM 100 MG CAPSULE PO SCH (09:05)
[2018-07-30] MEDS: FAMOTIDINE 20 MG TABLET PO SCH (09:05)
[2018-07-30] MEDS: METOPROLOL SUCCINATE 50 MG TAB.SR.24H PO SCH (09:05)
[2018-07-30] MEDS: AMLODIPINE BESYLATE 10 MG TABLET PO SCH (09:05)
--- NOTE | 2018-07-30 11:54 | PDOC DISCHARGE SUMMARY ---
General - Admit/Disc Date/PCP Admission Date/Primary Care Provider: 07/26/18 22:12 DONOVAN VELEZ MD Discharge Date: 07/30/18 - Discharge Diagnosis (1) Left lower lobe pneumonia Is this a current diagnosis for this admission?: Yes Summary: This is a community-acquired pneumonia documented on x-ray. Unfortunately there was no sputum to submit to the lab for identification of an organism. Patient was tachypneic and was on nasal cannula oxygen supplement. She has responded nicely to antibiotic therapy as well as nebulizer treatments. Clinical exam improved over the course of her hospitalization. She has been stable on room air and will complete outpatient antibiotic therapy as ordered. I have asked that she follow-up with her primary care doctor for Hanna in approximately 10 days. (2) Acute encephalopathy Is this a current diagnosis for this admission?: Yes Summary: Review of the emergency room physician and hospitalist notes reveal that the patient was only oriented to person and place. She was incorrect with the year and could not consistently follow simple commands. Her reported that this is a significant change from her baseline. She does have dementia but it is mild and she functions at a high level within a short time and with oxygen supplementation and antibiotic therapy, the patient's encephalopathy cleared. Over the last several days she has been intact and oriented. The patient's underlying dementia makes her more susceptible to encephalopathy. The etiology of this episode was most likely related to her infection exacerbating her underlying dementia (3) Leukocytosis Is this a current diagnosis for this admission?: Yes Summary: Resolved with antibiotic therapy. (4) Acute hypoxemic respiratory failure Is this a current diagnosis for this admission?: Yes Summary: Despite an oxygenation of 90% on room air the patient was tachypneic and confused. A left lower lobe pneumonia was identified. The tachypnea certainly improved with oxygen supplementation over the first several days and resolved as the pneumonia was treated. The patient has been on room air for the last day or 2 and continues to maintain oxygen saturations greater than 90%. (5) Hypomagnesemia Is this a current diagnosis for this admission?: Yes Summary: Initially she was treated with magnesium sulfate and once her diet improved she has maintained a normal serum magnesium level (6) Hypokalemia Is this a current diagnosis for this admission?: Yes Summary: The patient did exhibit mild hypokalemia. She was started on a very low-dose potassium supplement. As her diet improves her potassium level should remain normal. I have suggested not utilizing prescription supplementation but rather take small amounts of food and potassium on a daily basis. (7) Dermatitis associated with moisture from urinary incontinence Is this a current diagnosis for this admission?: Yes Summary: The patient exhibited severe dermatitis likely related to urinary incontinence. There is likely a fungal component based on the appearance. We initiated a thin application of Lotrisone cream once a day. May have also been using barrier cream liberally especially with any incontinent episode. I have suggested that we continue this regimen until resolved. The patient should follow-up with her primary care first and possible urology consultation to further investigate the incontinence. (8) Hypertension Is this a current diagnosis for this admission?: Yes Summary: The patient was on multiple antihypertensive medications at home. Due to the infection her blood pressure did not require all of her medications. She was continued on her metoprolol and amlodipine. Her losartan is being held temporarily. On discharge I did advise to hold losartan check her blood pressure regularly. If the systolic blood pressure is greater than 140 consider resuming half dose (50 mg) of losartan. The patient will be following up with Dr. Velez and based on blood pressure readings as well as laboratory studies adjustments can be made per his direction. - Additional Information Resuscitation Status: Full Code Discharge Diet: Cardiac, Diabetic Discharge Activity: Activity As Tolerated Prescriptions: Azithromycin [Zithromax 250 mg Tablet] 250 mg PO QHS 5 Days #5 tablet Cefuroxime Axetil [Ceftin 500 mg Tablet] 1 tab PO BID 5 Days #10 tablet Home Medications: Atorvastatin Calcium [Lipitor 80 mg Tablet] 80 mg PO QHS 01/20/18 Lansoprazole [Prevacid] 30 mg PO Q6AM 01/20/18 Metformin HCl [Metformin HCl ER] 500 mg PO DAILY 01/20/18 Metoprolol Succinate [Toprol XL 100 mg Tablet] 100 mg PO DAILY 01/20/18 Aspirin [Aspirin 325 mg Tablet] 325 mg PO DAILY tablet 01/24/18 Docusate Sodium [Colace 100 mg Capsule] 100 mg PO BID capsule 01/24/18 Diphenhydramine HCl [Benadryl] 25 mg PO Q6HP PRN 07/27/18 Estradiol [Estrace] 1 gm VG MOWEFR@1000 07/27/18 Losartan Potassium [Cozaar 100 mg Tablet] 100 mg PO DAILY 07/27/18 Ubidecarenone [Co Q-10] 200 mg PO DAILY 07/27/18 Acetaminophen [Tylenol 325 mg Tablet] 650 mg PO Q4HP PRN tablet 07/30/18 Amlodipine Besylate [Norvasc 10 mg Tablet] 10 mg PO DAILY tablet 07/30/18 Azithromycin [Zithromax 250 mg Tablet] 250 mg PO QHS 5 Days #5 tablet 07/30/18 Calcium Carbonate [Tums Chewable 500 mg Tab.chew] 500 mg PO Q6HP PRN tab.chew 07/30/18 Cefuroxime Axetil [Ceftin 500 mg Tablet] 1 tab PO BID 5 Days #10 tablet 07/30/18 Clotrimazole/Betamethasone Dip [Lotrisone Cream 15 gm] 1 applic TOP Q12 tube 07/30/18 Docusate Sodium [Colace 100 mg Capsule] 100 mg PO BID capsule 07/30/18 Guaifenesin [Mucinex Sr 600 mg Tablet.sa] 600 mg PO Q12 tablet.sa 07/30/18 Imipramine HCl [Tofranil 25 mg Tablet] 25 mg PO QPM tablet 07/30/18 Imipramine HCl [Tofranil 25 mg Tablet] 50 mg PO QAM tablet 07/30/18 History of Present Illness Patient complains of: Altered mental status with confusion and weakness History of Present Illness: CARO COKER is a 72 year old female with a history of hypertension and mild dementia who was found to be weak and confused by her . This is a noticeable change from her baseline. He brought her to the emergency room to be evaluated. She was found to have a left lower lobe pneumonia with the confusion noted above. She was referred to the hospitalist service for admission. Hospital Course Hospital Course: The patient had a fairly unremarkable hospital course. Her encephalopathy cleared relatively quickly. She received antibiotic therapy and her respiratory status improved and she weaned to room air. Her blood pressure was well controlled on only 2 of her 3 medications. It took several days but eventually her white blood cell count improved significantly. It is down to normal today. The patient is much improved and stable for discharge to home. Physical Exam Vital Signs: Temp Pulse Resp BP Pulse Ox 97.7 F 75 18 158/78 H 97 07/30/18 08:00 07/30/18 08:00 07/30/18 08:00 07/30/18 08:00 07/30/18 08:00 Intake & Output 07/29/18 07/30/18 07/31/18 06:59 06:59 06:59 Intake Total 1250 2085 Output Total 1300 1750 Balance -50 335 Weight 59 kg 59.3 kg General appearance: PRESENT: no acute distress, cooperative, well-developed Head exam: PRESENT: normocephalic Respiratory exam: PRESENT: rhonchi - Faint rhonchi at the left base, symmetrical, unlabored. ABSENT: accessory muscle use, rales, wheezes Cardiovascular exam: PRESENT: RRR, +S1, +S2 GI/Abdominal exam: PRESENT: normal bowel sounds, soft. ABSENT: tenderness Extremities exam: ABSENT: pedal edema Neurological exam: PRESENT: alert, awake, oriented to person, oriented to place, oriented to situation Psychiatric exam: PRESENT: appropriate affect, normal mood. ABSENT: agitated, anxious Skin exam: PRESENT: rash - Marked erythema from the inguinal folds through the perineum. Results Laboratory Results: 07/30/18 04:01 07/30/18 04:01 07/30/18 07/30/18 04:01 04:01 WBC 8.2 RBC 4.16 Hgb 11.6 L Hct 34.6 L MCV 83 MCH 27.8 MCHC 33.4 RDW 16.9 H Plt Count 260 Sodium 137.8 Potassium 3.6 Chloride 101 Carbon Dioxide 26 Anion Gap 11 BUN 21 H Creatinine 0.76 Est GFR ( Amer) > 60 Est GFR (Non-Af Amer) > 60 Glucose 124 H Calcium 9.4 07/26/18 07/27/18 20:40 04:04 Troponin I < 0.012 NT-Pro-B Natriuret Pep 5620 H Impressions: Chest X-Ray 07/26/18 19:31 IMPRESSION: Cannot exclude left lower lobe pneumonia. Head CT 07/26/18 19:31 IMPRESSION: CHRONIC CHANGES OF ATROPHY AND MICROVASCULAR ISCHEMIA. NO ACUTE PROCESS. EVIDENCE OF ACUTE STROKE: NO. Qualifiers - * PATIENT BEING DISCHARGED WITH ANY OF THE FOLLOWING DIAGNOSIS: No Plan Discharge Plan: Complete antibiotics as ordered. Follow-up with Dr. Velez in approximately 10- 12 days. Time Spent: Greater than 30 Minutes
[2018-07-30 13:40] VITALS: BP 159/84
== END 2018-07-30 14:25 | disposition home health service (06) | DRG 193 ==
LOC: ER 19:08 → EH 22:12 → 5 07-27 18:13
PROVIDERS: ADMIT Emergency Medicine; ATTEND Emergency Medicine
PROC: 3E0F73Z Introduction of Anti-inflammatory into Respiratory Tract, Via Natural or Artificial Opening (ICD-10-PCS; principal; 2018-07-26)
DX: J18.1 Lobar pneumonia, unspecified organism (principal); J96.01 Acute respiratory failure with hypoxia; G93.40 Encephalopathy, unspecified; J44.0 Chronic obstructive pulmonary disease with (acute) lower respiratory infection; E11.9 Type 2 diabetes mellitus without complications; E78.5 Hyperlipidemia, unspecified; J44.9 Chronic obstructive pulmonary disease, unspecified; I10 Essential (primary) hypertension; I25.10 Atherosclerotic heart disease of native coronary artery without angina pectoris; M19.90 Unspecified osteoarthritis, unspecified site; F03.90 Unspecified dementia, unspecified severity, without behavioral disturbance, psychotic disturbance, mood disturbance, and anxiety; E83.42 Hypomagnesemia; D72.829 Elevated white blood cell count, unspecified; R32 Unspecified urinary incontinence; L30.9 Dermatitis, unspecified; Z88.0 Allergy status to penicillin; Z88.8 Allergy status to other drugs, medicaments and biological substances; Z86.73 Personal history of transient ischemic attack (TIA), and cerebral infarction without residual deficits; Z95.5 Presence of coronary angioplasty implant and graft
CPT/HCPCS: 36415; 70450; 71045; 80048; 80053; 81001; 82803; 82962; 83605; 83735; 83880; 84439; 84443; 84481; 84484; 85025; 85027; 87040; 93005; 93010; 94640; 96365; 96375; 99285; J0456; J0696; J1644; J2920; J2930; J3475; J3490; J7030; J7060